=== PATIENT | female | born 1940 | race Caucasian/White ===

== ENCOUNTER → 2018-08-12 | Outpatient (CLI) | payer MEDICARE ==
[2018-08-12 15:20] LABS: BASO % 0.5 % (0.0-1.0); EOS % 0.6 % (0.0-3.0); HEMATOCRIT 42.3 % (36.0-47.0); HEMOGLOBIN 13.2 g/dl (12.0-15.5); LYMPH # 0.9 10^3/uL (1.5-4.5); LYMPH % 13.6 % (24.0-44.0); MEAN CORPUSCULAR HEMOGLOBIN 30.4 pg (27.0-33.0); MEAN CORPUSCULAR HGB CONC 31.2 g/dl (32.0-36.5); MEAN CORPUSCULAR VOLUME 97.5 fl (80.0-96.0); MONO # 0.3 10^3/uL (0.0-0.8); MONO % 4.9 % (0.0-5.0); NEUTROPHILS # 5.3 10^3/uL (1.8-7.7); NEUTROPHILS % 80.2 % (36.0-66.0); PLATELET COUNT, AUTOMATED 237 10^3/uL (150-450); RED BLOOD COUNT 4.34 10^6/uL (4.00-5.40); WHITE BLOOD COUNT 6.6 10^3/uL (4.0-10.0)
[2018-08-12 15:32] LABS: AMORPHOUS SEDIMENT SMALL (NEGATIVE); APPEARANCE, URINE CLOUDY (CLEAR); BACTERIA, URINE AUTO NEGATIVE (NEGATIVE); BILIRUBIN, URINE AUTO NEGATIVE (NEGATIVE); BLOOD, URINE BLOOD NEGATIVE (NEGATIVE); COLOR, URINE YELLOW (YELLOW); GLUCOSE, URINE (UA) AUTO NEGATIVE (NEGATIVE); KETONE, URINE AUTO NEGATIVE (NEGATIVE); LEUKOCYTE ESTERASE, URINE AUTO NEGATIVE (NEGATIVE); MUCUS, URINE SMALL (NEGATIVE); NITRITE, URINE AUTO NEGATIVE (NEGATIVE); PROTEIN, URINE AUTO NEGATIVE (NEGATIVE); RBC, URINE AUTO 6 /HPF (0-3); SPECIFIC GRAVITY URINE AUTO 1.016 (1.002-1.035); SQUAMOUS EPITHELIAL CELL UR AU 0 /HPF (0-6); UROBILINOGEN, URINE AUTO 0.2 mg/dL (0.0-2.0); WBC, URINE AUTO 1 /HPF (0-3)
[2018-08-12 15:41] LABS: CREATININE,RANDOM URINE 72.3 MG/DL; TOTAL PROTEIN,RANDOM URINE 6.1 MG/DL (0.0-12.0)
[2018-08-12 15:49] LABS: ALT/SGPT 20 U/L (12-78); BILIRUBIN,TOTAL 0.5 MG/DL (0.2-1.0); BLOOD UREA NITROGEN 19 MG/DL (7-18); C REACTIVE PROTEIN QUANTITATIV 0.74 MG/DL (0.00-0.30); CALCIUM LEVEL 8.3 MG/DL (8.8-10.2); CARBON DIOXIDE LEVEL 27 MEQ/L (21-32); CHLORIDE LEVEL 105 MEQ/L (98-107); COMPLEMENT C3 115 MG/DL (90-180); COMPLEMENT C4 43 MG/DL (10-40); CREATININE FOR GFR 0.81 MG/DL (0.55-1.30); GLOMERULAR FILTRATION RATE > 60.0 (>39); GLUCOSE, FASTING 110 MG/DL (70-100); POTASSIUM SERUM 4.6 MEQ/L (3.5-5.1); RHEUMATOID FACTOR QUANT < 10.0 IU/ML (<15.0); SODIUM LEVEL 138 MEQ/L (136-145); TOTAL PROTEIN 6.7 GM/DL (6.4-8.2); URIC ACID 3.2 MG/DL (2.6-6.0)
[2018-08-12 16:23] LABS: ERYTHROCYTE SEDIMENTATION RATE 6 mm/hr (0-30)
--- NOTE | 2018-08-12 16:25 | REP ---
BILATERAL SHOULDERS, SIX VIEWS: HISTORY: Polymyalgia. RIGHT SHOULDER: There is no acute fracture or dislocation. There is minimal narrowing of the joint spaces. Osteophytes are present at the acromioclavicular joint. A small calcification is present in the glenohumeral joint space. This may represent a loose body. IMPRESSION:Degenerative change as described above. LEFT SHOULDER: There is no acute fracture or dislocation. There is moderate narrowing of the joint spaces. A calcified granuloma is present in the left upper lobe. IMPRESSION:Degenerative change as described above. Electronically Signed by Hayden Hennessy MD 08/12/2018 04:31 P
[2018-08-14 14:36] LABS: RNP ANTIBODY < 0.2 AI (0.0-0.9); SMITHS ANTIBODY < 0.2 AI (0.0-0.9); SSA SJOGRENS A <0.2 AI (0.0-0.9); SSB SJOGRENS B <0.2 AI (0.0-0.9)
[2018-08-19 14:51] LABS: ANA (HEP2) Positive (.); ANTI DS-DNA AB <1:10 titer (.); CYCLIC CITRULLINATED PEPTIDE 2 units (0-19)
== END ==
LOC: M LAB 14:22
PROVIDERS: ATTEND Internal Medicine Rheumatology
DX: M19.011 Primary osteoarthritis, right shoulder (principal); M19.012 Primary osteoarthritis, left shoulder; M25.711 Osteophyte, right shoulder; R76.8 Other specified abnormal immunological findings in serum; M35.3 Polymyalgia rheumatica
CPT/HCPCS: 36415; 73030; 80053; 81001; 82570; 84156; 84443; 84550; 85025; 85652; 86038; 86140; 86160; 86200; 86225; 86235; 86255; 86431; G0463

== ENCOUNTER → 2018-09-10 | Outpatient (REF) | payer MEDICARE | LOC: M SFHCADAM 14:41 | PROVIDERS: ATTEND Internal Medicine Rheumatology | DX: M35.3 Polymyalgia rheumatica (principal) ==

== ENCOUNTER → 2018-10-14 | Outpatient (REF) | payer MEDICARE | LOC: M SFHCADAM 09:17 | PROVIDERS: ATTEND Internal Medicine Rheumatology | DX: M35.3 Polymyalgia rheumatica (principal) ==

== ENCOUNTER → 2018-11-22 | Outpatient (REF) | payer MEDICARE | LOC: M SFHCADAM 08:00 | PROVIDERS: ATTEND Internal Medicine Rheumatology | DX: M35.3 Polymyalgia rheumatica (principal) ==

== ENCOUNTER → 2018-12-31 | Outpatient (REF) | payer MEDICARE | LOC: M SFHCADAM 09:00 | PROVIDERS: ATTEND Internal Medicine Rheumatology | DX: M35.3 Polymyalgia rheumatica (principal) ==

== ENCOUNTER 2019-03-20 10:31 | Emergency (ER) | payer MEDICARE ==
[~2019-03-20] VITALS: Ht 152.4 cm; Wt 79.7 kg
[2019-03-20] MEDS ORDERED: PRED1TABL PO (10:37)
[2019-03-20] MEDS ORDERED: METO1TAB7 PO (10:37)
[2019-03-20 11:45] LABS: BASO # 0.1 10^3/uL (0.0-0.2); BASO % 1.4 % (0.0-1.0); EOS # 0.1 10^3/uL (0.0-0.5); EOS % 2.4 % (0.0-3.0); HEMATOCRIT 41.9 % (36.0-47.0); HEMOGLOBIN 13.6 g/dl (12.0-15.5); LYMPH % 17.1 % (24.0-44.0); MEAN CORPUSCULAR HEMOGLOBIN 31.1 pg (27.0-33.0); MEAN CORPUSCULAR HGB CONC 32.5 g/dl (32.0-36.5); MEAN CORPUSCULAR VOLUME 95.7 fl (80.0-96.0); MONO # 0.8 10^3/uL (0.0-0.8); MONO % 14.1 % (0.0-5.0); NEUTROPHILS # 3.8 10^3/uL (1.5-8.5); NEUTROPHILS % 64.8 % (36.0-66.0); PLATELET COUNT, AUTOMATED 197 10^3/uL (150-450); RED BLOOD COUNT 4.38 10^6/uL (4.00-5.40); WHITE BLOOD COUNT 5.9 10^3/uL (4.0-10.0)
--- NOTE | 2019-03-20 11:58 | REP ---
Clinical: Hematuria. Technique: Axial noncontrast images from the lung bases to the pubic symphysis with coronal and sagittal re-formations. Findings: Kidneys demonstrate significant bilateral peripelvic cystic changes. There is evidence for mild left-sided hydronephrosis two 2-3 mm ureteral calculi in the mid/distal ureter within the mid pelvis (images 94 - 95). Liver, spleen, pancreas, gallbladder, and bilateral adrenal glands are normal for noncontrast evaluation. The enteric system is without obstruction or acute inflammatory process. Pelvis demonstrates relatively normal bladder and evidence of prior hysterectomy. No ascites. No free air. No adenopathy. Abdominal aorta without aneurysm. Musculoskeletal structures demonstrate age-related degenerative changes without focal abnormality. Lung bases are clear. Impression: 1. Bilateral peripelvic renal cysts. 2. Left ureteral calculi as described above causing minimal hydronephrosis which may represent partially obstructing ureteroliths. Electronically Signed by Doug Jackson MD 03/20/2019 11:50 A
[2019-03-20 12:14] LABS: ALBUMIN 3.5 GM/DL (3.2-5.2); ALT/SGPT 18 U/L (12-78); BILIRUBIN,DIRECT < 0.1 MG/DL (0.0-0.2); BILIRUBIN,TOTAL 0.5 MG/DL (0.2-1.0); BLOOD UREA NITROGEN 18 MG/DL (7-18); CALCIUM LEVEL 8.3 MG/DL (8.8-10.2); CARBON DIOXIDE LEVEL 28 MEQ/L (21-32); CHLORIDE LEVEL 106 MEQ/L (98-107); CREATININE FOR GFR 0.84 MG/DL (0.55-1.30); GLOMERULAR FILTRATION RATE > 60.0 (>39); GLUCOSE, FASTING 112 MG/DL (70-100); LIPASE 94 U/L (73-393); POTASSIUM SERUM 4.3 MEQ/L (3.5-5.1); SODIUM LEVEL 140 MEQ/L (136-145); TOTAL PROTEIN 6.6 GM/DL (6.4-8.2)
[2019-03-20 12:56] VITALS: BP 138/78
[2019-03-20] MEDS ORDERED: FLOM0.4C39 PO (13:04)
[2019-03-20] MEDS ORDERED: ONDA4TAB6 PO (13:10)
[2019-03-20] MEDS ORDERED: NITR-67 PO (13:10)
== END 2019-03-20 13:20 | disposition home or self-care (01) ==
LOC: M ED 10:31
DX: N39.0 Urinary tract infection, site not specified (principal); N28.1 Cyst of kidney, acquired; N20.1 Calculus of ureter; N13.2 Hydronephrosis with renal and ureteral calculous obstruction; R31.0 Gross hematuria; R31.29 Other microscopic hematuria; R10.9 Unspecified abdominal pain; I10 Essential (primary) hypertension; Z87.442 Personal history of urinary calculi; Z79.899 Other long term (current) drug therapy; Z88.0 Allergy status to penicillin; Z88.1 Allergy status to other antibiotic agents; Z91.012 Allergy to eggs

== ENCOUNTER → 2019-04-01 | Outpatient (REF) | payer MEDICARE ==
[~2019-04-01] MED LIST: FLOM0.4C39 PO; METO1TAB7 PO; NITR-67 PO; ONDA4TAB6 PO; PRED1TABL PO
[2019-04-01 18:36] LABS: APPEARANCE, URINE CLEAR (CLEAR); BACTERIA, URINE AUTO NEGATIVE (NEGATIVE); BILIRUBIN, URINE AUTO NEGATIVE (NEGATIVE); BLOOD, URINE BLOOD 1+ (NEGATIVE); COLOR, URINE COLORLESS (YELLOW); GLUCOSE, URINE (UA) AUTO NEGATIVE (NEGATIVE); KETONE, URINE AUTO NEGATIVE (NEGATIVE); LEUKOCYTE ESTERASE, URINE AUTO NEGATIVE (NEGATIVE); NITRITE, URINE AUTO NEGATIVE (NEGATIVE); PROTEIN, URINE AUTO NEGATIVE (NEGATIVE); RBC, URINE AUTO 0 /HPF (0-3); SPECIFIC GRAVITY URINE AUTO 1.003 (1.002-1.035); SQUAMOUS EPITHELIAL CELL UR AU 0 /HPF (0-6); UROBILINOGEN, URINE AUTO 0.2 mg/dL (0.0-2.0); WBC, URINE AUTO 0 /HPF (0-3)
== END ==
LOC: M SMT 17:13
PROVIDERS: ATTEND Nurse Practitioner Women's Health
DX: N13.2 Hydronephrosis with renal and ureteral calculous obstruction (principal)
CPT/HCPCS: 81001; 87086; G0463

== ENCOUNTER → 2019-06-21 | Outpatient (REF) | payer MEDICARE ==
[2019-06-21 13:35] LABS: HEMATOCRIT 36.3 % (36.0-47.0); HEMOGLOBIN 11.4 g/dl (12.0-15.5); MEAN CORPUSCULAR HEMOGLOBIN 29.3 pg (27.0-33.0); MEAN CORPUSCULAR HGB CONC 31.4 g/dl (32.0-36.5); MEAN CORPUSCULAR VOLUME 93.3 fl (80.0-96.0); PLATELET COUNT, AUTOMATED 235 10^3/uL (150-450); RED BLOOD COUNT 3.89 10^6/uL (4.00-5.40); WHITE BLOOD COUNT 5.8 10^3/uL (4.0-10.0)
[2019-06-21 14:18] LABS: ERYTHROCYTE SEDIMENTATION RATE 48 mm/hr (0-30)
[2019-06-21 14:27] LABS: ALBUMIN 3.4 GM/DL (3.2-5.2); ALT/SGPT 14 U/L (12-78); BILIRUBIN,TOTAL 0.5 MG/DL (0.2-1.0); BLOOD UREA NITROGEN 17 MG/DL (7-18); CALCIUM LEVEL 8.2 MG/DL (8.8-10.2); CARBON DIOXIDE LEVEL 28 MEQ/L (21-32); CHLORIDE LEVEL 106 MEQ/L (98-107); CHOLESTEROL LEVEL 165 MG/DL (<200); CHOLESTEROL RISK RATIO 2.661 (<5); CREATININE FOR GFR 0.72 MG/DL (0.55-1.30); GLOMERULAR FILTRATION RATE > 60.0 (>39); GLUCOSE, FASTING 86 MG/DL (70-100); HDL CHOLESTEROL 62 MG/DL (>40); LDL CHOLESTEROL 77 MG/DL (<100); NON-HDL-C 103 MG/DL; POTASSIUM SERUM 4.2 MEQ/L (3.5-5.1); SODIUM LEVEL 139 MEQ/L (136-145); TOTAL PROTEIN 6.4 GM/DL (6.4-8.2); TRIGLYCERIDES LEVEL 128 MG/DL (<150)
== END ==
LOC: M LABDRWAD 12:40
PROVIDERS: ATTEND Physician Assistant
DX: Z00.00 Encounter for general adult medical examination without abnormal findings (principal); M35.3 Polymyalgia rheumatica; E78.00 Pure hypercholesterolemia, unspecified

== ENCOUNTER → 2019-07-21 | Outpatient (REF) | payer MEDICARE ==
[2019-07-21 18:08] LABS: ALBUMIN 3.5 GM/DL (3.2-5.2); ALT/SGPT 16 U/L (12-78); BILIRUBIN,TOTAL 0.3 MG/DL (0.2-1.0); BLOOD UREA NITROGEN 18 MG/DL (7-18); C REACTIVE PROTEIN QUANTITATIV 7.79 MG/DL (0.00-0.30); CALCIUM LEVEL 9.2 MG/DL (8.8-10.2); CARBON DIOXIDE LEVEL 30 MEQ/L (21-32); CHLORIDE LEVEL 103 MEQ/L (98-107); CREATININE FOR GFR 0.67 MG/DL (0.55-1.30); GLOMERULAR FILTRATION RATE > 60.0 (>39); GLUCOSE, FASTING 93 MG/DL (70-100); POTASSIUM SERUM 4.2 MEQ/L (3.5-5.1); SODIUM LEVEL 139 MEQ/L (136-145)
== END ==
LOC: M SFHCRHEU 15:13
PROVIDERS: ATTEND Internal Medicine
DX: M35.3 Polymyalgia rheumatica (principal); R60.0 Localized edema
CPT/HCPCS: 36415; 80053; 85652; 86140; G0463

== ENCOUNTER 2019-10-20 12:50 | Emergency (ER) | payer MEDICARE ==
[~2019-10-20] VITALS: Ht 154.9 cm; Wt 78.2 kg
[2019-10-20] MEDS ORDERED: FLUORESCEIN OPHTH 1 MG STRIP OD ONE (13:45)
[2019-10-20] MEDS ORDERED: TETRACAINE 0.5% OPHTH SOLN 4ML OS ONE (13:45)
[2019-10-20] MEDS ORDERED: ERYTHROMYCIN OPHTH OINT OD ONE (14:15)
[2019-10-20 14:34] VITALS: BP 175/83
== END 2019-10-20 14:35 | disposition home or self-care (01) ==
LOC: M ED 12:50
DX: T26.61XA Corrosion of cornea and conjunctival sac, right eye, initial encounter (principal); Z88.0 Allergy status to penicillin; Z88.1 Allergy status to other antibiotic agents

== ENCOUNTER → 2020-01-24 | Outpatient (REF) | payer MEDICARE ==
[2020-01-24 13:45] LABS: BASO # 0.1 10^3/uL (0.0-0.2); BASO % 0.7 % (0.0-1.0); EOS # 0.2 10^3/uL (0.0-0.5); EOS % 2.6 % (0.0-3.0); HEMATOCRIT 42.9 % (36.0-47.0); HEMOGLOBIN 13.7 g/dl (12.0-15.5); LYMPH # 2.1 10^3/uL (1.5-5.0); LYMPH % 30.1 % (24.0-44.0); MEAN CORPUSCULAR HEMOGLOBIN 31.6 pg (27.0-33.0); MEAN CORPUSCULAR HGB CONC 31.9 g/dl (32.0-36.5); MEAN CORPUSCULAR VOLUME 99.1 fl (80.0-96.0); MONO # 0.7 10^3/uL (0.0-0.8); MONO % 9.9 % (0.0-5.0); NEUTROPHILS % 56.1 % (36.0-66.0); PLATELET COUNT, AUTOMATED 248 10^3/uL (150-450); RED BLOOD COUNT 4.33 10^6/uL (4.00-5.40)
[2020-01-24 14:11] LABS: ALBUMIN 3.4 GM/DL (3.2-5.2); ALT/SGPT 17 U/L (12-78); BILIRUBIN,TOTAL 0.5 MG/DL (0.2-1.0); BLOOD UREA NITROGEN 19 MG/DL (7-18); C REACTIVE PROTEIN QUANTITATIV 0.47 MG/DL (0.00-0.30); CALCIUM LEVEL 8.9 MG/DL (8.8-10.2); CARBON DIOXIDE LEVEL 31 MEQ/L (21-32); CHLORIDE LEVEL 105 MEQ/L (98-107); CREATININE FOR GFR 0.94 MG/DL (0.55-1.30); GLOMERULAR FILTRATION RATE > 60.0 (>39); GLUCOSE, FASTING 100 MG/DL (70-100); POTASSIUM SERUM 4.7 MEQ/L (3.5-5.1); SODIUM LEVEL 140 MEQ/L (136-145); TOTAL PROTEIN 6.4 GM/DL (6.4-8.2)
[2020-01-24 14:16] LABS: ERYTHROCYTE SEDIMENTATION RATE 7 mm/hr (0-30)
== END ==
LOC: M SFHCADAM 09:23
PROVIDERS: ATTEND Internal Medicine
DX: M35.3 Polymyalgia rheumatica (principal)

== ENCOUNTER → 2020-03-01 | Outpatient (CLI) | payer MEDICARE ==
--- NOTE | 2020-03-01 14:45 | REP ---
INDICATION: OSTEOARTHRITIS. COMPARISON: None. TECHNIQUE: Nine views. Bilateral study. FINDINGS: Five views of each knee are presented. There is not a ticket ower spurring of the patella bilaterally seen on sunrise and lateral projections. There is also patellofemoral osteoarthritic spurring bilaterally visible on the lateral views. There is diffuse osteopenia. There is no medial compartment osteoarthritic joint space narrowing bilaterally, left greater than right with associated spurring. 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 Diffuse osteopenia. No acute bony abnormality.. <Electronically signed by Aayush Nieto > 03/01/20 [id number]
== END ==
LOC: M ADAMS 11:11
PROVIDERS: ATTEND Internal Medicine
DX: M17.0 Bilateral primary osteoarthritis of knee (principal); M85.851 Other specified disorders of bone density and structure, right thigh; M85.852 Other specified disorders of bone density and structure, left thigh; M25.761 Osteophyte, right knee; M25.762 Osteophyte, left knee

== ENCOUNTER → 2020-04-24 | Outpatient (REF) | payer MEDICARE | LOC: M SFHCADAM 09:30 | PROVIDERS: ATTEND Internal Medicine | DX: M35.3 Polymyalgia rheumatica (principal) ==

== ENCOUNTER → 2020-08-14 | Outpatient (REF) | payer MEDICARE ==
[2020-08-14 16:56] LABS: BASO # 0.1 10^3/uL (0.0-0.2); BASO % 0.8 % (0.0-1.0); EOS # 0.2 10^3/uL (0.0-0.5); EOS % 2.9 % (0.0-3.0); HEMATOCRIT 41.9 % (36.0-47.0); HEMOGLOBIN 13.2 g/dl (12.0-15.5); LYMPH # 1.5 10^3/uL (1.5-5.0); LYMPH % 23.4 % (24.0-44.0); MEAN CORPUSCULAR HGB CONC 31.5 g/dl (32.0-36.5); MEAN CORPUSCULAR VOLUME 98.4 fl (80.0-96.0); MONO # 0.7 10^3/uL (0.0-0.8); MONO % 10.7 % (2.0-8.0); NEUTROPHILS % 61.9 % (36.0-66.0); PLATELET COUNT, AUTOMATED 208 10^3/uL (150-450); RED BLOOD COUNT 4.26 10^6/uL (4.00-5.40); WHITE BLOOD COUNT 6.5 10^3/uL (4.0-10.0)
[2020-08-14 17:24] LABS: ALBUMIN 3.7 GM/DL (3.2-5.2); ALT/SGPT 20 U/L (12-78); BILIRUBIN,TOTAL 0.3 MG/DL (0.2-1.0); BLOOD UREA NITROGEN 23 MG/DL (7-18); CALCIUM LEVEL 9.5 MG/DL (8.8-10.2); CARBON DIOXIDE LEVEL 31 MEQ/L (21-32); CHLORIDE LEVEL 105 MEQ/L (98-107); CREATININE FOR GFR 0.73 MG/DL (0.55-1.30); GLOMERULAR FILTRATION RATE > 60.0 (>39); GLUCOSE, FASTING 91 MG/DL (70-100); POTASSIUM SERUM 4.2 MEQ/L (3.5-5.1); SODIUM LEVEL 141 MEQ/L (136-145); TOTAL PROTEIN 6.9 GM/DL (6.4-8.2)
[2020-08-14 17:35] LABS: TOTAL 25(OH) VITAMIN D 30.8 NG/ML (30.0-100.0)
[2020-08-14 17:43] LABS: ERYTHROCYTE SEDIMENTATION RATE 12 mm/hr (0-30)
== END ==
LOC: M SFHCRHEU 15:29
PROVIDERS: ATTEND Internal Medicine Rheumatology
DX: M35.3 Polymyalgia rheumatica (principal); Z79.52 Long term (current) use of systemic steroids
CPT/HCPCS: 80053; 82306; 85025; 85652; 86140; G0463

== ENCOUNTER → 2020-10-23 | Outpatient (REF) | payer MEDICARE ==
[2020-10-23 13:12] LABS: BASO # 0.1 10^3/uL (0.0-0.2); BASO % 1.2 % (0.0-1.0); EOS # 0.2 10^3/uL (0.0-0.5); EOS % 4.1 % (0.0-3.0); HEMATOCRIT 41.7 % (36.0-47.0); LYMPH # 1.5 10^3/uL (1.5-5.0); LYMPH % 26.7 % (24.0-44.0); MEAN CORPUSCULAR HGB CONC 31.2 g/dl (32.0-36.5); MEAN CORPUSCULAR VOLUME 99.5 fl (80.0-96.0); MONO # 0.7 10^3/uL (0.0-0.8); MONO % 13.2 % (2.0-8.0); NEUTROPHILS % 54.3 % (36.0-66.0); PLATELET COUNT, AUTOMATED 205 10^3/uL (150-450); RED BLOOD COUNT 4.19 10^6/uL (4.00-5.40); WHITE BLOOD COUNT 5.6 10^3/uL (4.0-10.0)
[2020-10-23 13:35] LABS: ERYTHROCYTE SEDIMENTATION RATE 8 mm/hr (0-30)
[2020-10-23 13:41] LABS: ALBUMIN 3.5 GM/DL (3.2-5.2); ALT/SGPT 18 U/L (12-78); BILIRUBIN,TOTAL 0.4 MG/DL (0.2-1.0); BLOOD UREA NITROGEN 18 MG/DL (7-18); C REACTIVE PROTEIN QUANTITATIV 0.68 MG/DL (0.00-0.30); CALCIUM LEVEL 8.8 MG/DL (8.8-10.2); CARBON DIOXIDE LEVEL 28 MEQ/L (21-32); CHLORIDE LEVEL 107 MEQ/L (98-107); CREATININE FOR GFR 0.88 MG/DL (0.55-1.30); GLOMERULAR FILTRATION RATE > 60.0 (>39); GLUCOSE, FASTING 111 MG/DL (70-100); POTASSIUM SERUM 4.3 MEQ/L (3.5-5.1); SODIUM LEVEL 143 MEQ/L (136-145); TOTAL PROTEIN 6.4 GM/DL (6.4-8.2)
== END ==
LOC: M SFHCRHEU 09:20 → M SFHCADAM 09:22
PROVIDERS: ATTEND Internal Medicine Rheumatology
DX: M35.3 Polymyalgia rheumatica (principal)

== ENCOUNTER → 2020-11-30 | Outpatient (REF) | payer MEDICARE ==
[2020-11-30 12:51] LABS: BASO # 0.1 10^3/uL (0.0-0.2); BASO % 0.8 % (0.0-1.0); EOS # 0.3 10^3/uL (0.0-0.5); EOS % 4.2 % (0.0-3.0); HEMATOCRIT 40.2 % (36.0-47.0); HEMOGLOBIN 12.6 g/dl (12.0-15.5); LYMPH # 1.4 10^3/uL (1.5-5.0); LYMPH % 22.9 % (24.0-44.0); MEAN CORPUSCULAR HGB CONC 31.3 g/dl (32.0-36.5); MEAN CORPUSCULAR VOLUME 98.8 fl (80.0-96.0); MONO # 0.8 10^3/uL (0.0-0.8); MONO % 12.6 % (2.0-8.0); NEUTROPHILS # 3.5 10^3/uL (1.5-8.5); NEUTROPHILS % 59.2 % (36.0-66.0); PLATELET COUNT, AUTOMATED 188 10^3/uL (150-450); RED BLOOD COUNT 4.07 10^6/uL (4.00-5.40); WHITE BLOOD COUNT 5.9 10^3/uL (4.0-10.0)
[2020-11-30 13:30] LABS: ALBUMIN 3.5 GM/DL (3.2-5.2); ALT/SGPT 21 U/L (12-78); BILIRUBIN,TOTAL 0.4 MG/DL (0.2-1.0); BLOOD UREA NITROGEN 17 MG/DL (7-18); C REACTIVE PROTEIN QUANTITATIV 0.73 MG/DL (0.00-0.30); CARBON DIOXIDE LEVEL 29 MEQ/L (21-32); CHLORIDE LEVEL 108 MEQ/L (98-107); CREATININE FOR GFR 0.88 MG/DL (0.55-1.30); GLOMERULAR FILTRATION RATE > 60.0 (>39); GLUCOSE, FASTING 114 MG/DL (70-100); POTASSIUM SERUM 4.3 MEQ/L (3.5-5.1); SODIUM LEVEL 145 MEQ/L (136-145); TOTAL PROTEIN 6.1 GM/DL (6.4-8.2)
[2020-11-30 14:05] LABS: ERYTHROCYTE SEDIMENTATION RATE 10 mm/hr (0-30)
== END ==
LOC: M SFHCRHEU 12:38
PROVIDERS: ATTEND Internal Medicine Rheumatology
DX: M35.3 Polymyalgia rheumatica (principal)

== ENCOUNTER → 2020-12-27 | Outpatient (REF) | payer MEDICARE ==
[2020-12-27 12:45] LABS: BASO # 0.1 10^3/uL (0.0-0.2); BASO % 1.1 % (0.0-1.0); EOS # 0.2 10^3/uL (0.0-0.5); EOS % 4.2 % (0.0-3.0); HEMATOCRIT 43.1 % (36.0-47.0); HEMOGLOBIN 13.5 g/dl (12.0-15.5); LYMPH # 1.8 10^3/uL (1.5-5.0); LYMPH % 32.5 % (24.0-44.0); MEAN CORPUSCULAR HEMOGLOBIN 30.8 pg (27.0-33.0); MEAN CORPUSCULAR HGB CONC 31.3 g/dl (32.0-36.5); MEAN CORPUSCULAR VOLUME 98.4 fl (80.0-96.0); MONO # 0.9 10^3/uL (0.0-0.8); MONO % 16.6 % (2.0-8.0); NEUTROPHILS # 2.4 10^3/uL (1.5-8.5); PLATELET COUNT, AUTOMATED 220 10^3/uL (150-450); RED BLOOD COUNT 4.38 10^6/uL (4.00-5.40); WHITE BLOOD COUNT 5.4 10^3/uL (4.0-10.0)
[2020-12-27 13:54] LABS: ALBUMIN 3.6 GM/DL (3.2-5.2); ALT/SGPT 21 U/L (12-78); BILIRUBIN,TOTAL 0.4 MG/DL (0.2-1.0); BLOOD UREA NITROGEN 17 MG/DL (7-18); C REACTIVE PROTEIN QUANTITATIV 0.67 MG/DL (0.00-0.30); CARBON DIOXIDE LEVEL 30 MEQ/L (21-32); CHLORIDE LEVEL 105 MEQ/L (98-107); CREATININE FOR GFR 0.88 MG/DL (0.55-1.30); GLOMERULAR FILTRATION RATE > 60.0 (>39); GLUCOSE, FASTING 112 MG/DL (70-100); POTASSIUM SERUM 4.3 MEQ/L (3.5-5.1); SODIUM LEVEL 141 MEQ/L (136-145); TOTAL PROTEIN 6.6 GM/DL (6.4-8.2)
[2020-12-27 14:05] LABS: ERYTHROCYTE SEDIMENTATION RATE 7 mm/hr (0-30)
== END ==
LOC: M SFHCRHEU 08:56 → M SFHCADAM 09:42
PROVIDERS: ATTEND Internal Medicine Rheumatology
DX: M35.3 Polymyalgia rheumatica (principal)

== ENCOUNTER 2021-02-17 08:17 | Observation (INO) | payer MEDICARE ==
[~2021-02-17] VITALS: Ht 154.9 cm; Wt 81.9 kg
--- OUTSIDE RECORDS SUMMARY | 2021-02-17 08:22 | CCD | Continuity of Care Document ---
Author Author Hortencia 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 Name Role Phone Kvng Blackwell MD AUTM [phone] Problems Description No Information Available Social History Type Date Description Comments Sex Unknown Tobacco Use Start: Unknown Never Smoked Cigarettes ETOH Use Denies alcohol use Sun Exposure moderate amount of sun exposure Sun Exposure Has never experienced blistering from sunburns Sun Exposure Does not use sunscreen Sun Exposure Has never used tanning bed Allergies and adverse reactions Active Allergies Criticality Reaction | Severity Comments Date Penicillin Unable to assess criticality 09/07/2014 Doxycycline Unable to assess criticality 09/07/2014 Eggs Unable to assess criticality 09/07/2014 Cefprozil Unable to assess criticality 07/05/2020 Zithromax Unable to assess criticality 07/05/2020 Medications Active Medications SIG Qnty Indications Ordering Provide r Date Multivitamin Unknown Metoprolol Succinate ER Unknown 0 Calcium 1200+D3 Unknown 0 Fluticasone Propionate Nasal [place] U nknown Prednisone Unknown Immunizations Description No Information Available Vital Signs Date Vital Result Comment 01/30/2021 1:10pm BP Systolic 135 mmHg BP Diastolic 76 mmHg Heart Rate 87 /min Weight 175.00 lb 07/31/2020 1:37pm BP Systolic 159 mmHg BP Diastolic 71 mmHg Weight 185.00 lb Body Temperature 97.8 F Results Description No Information Available Procedures Date Code Description Status 01/30/2021 01284 Office/Outpatient Established Mo d MDM 30-39 Min Completed Medical Devices Description No Information Available Encounters Type Date Location Provider Dx Diagnosis Office Visit 01/30/2021 1:15p Main Office TEREZA Velarde L57.0 Actinic keratosis D22.5 Melanocytic nevi of trunk L81.4 Other melanin hyperpigmentat ion L82.1 Other seborrheic keratosis Z87.2 Personal history of diseases of the skin, subcu Z85.828 Personal history of other ma lignant neoplasm of skin Z08 Encntr for follow-up exam af ter trtmt for malignant neoplasm Assessments Date Code Description Provider 01/30/2021 L57.0 Actinic keratosis TEREZA Bro 01/30/2021 D22.5 Melanocytic nevi of trunk TEREZA Leblanc 01/30/2021 L81.4 Other melanin hyperpigmentation TEREZA Velarde 01/30/2021 L82.1 Other seborrheic keratosis TEREZA Mckeon 01/30/2021 Z87.2 Personal history of diseases of the skin and subcutaneous tissue TEREZA Velarde 01/30/2021 Z85.828 Personal history of other malign ant neoplasm of skin TEREZA Velarde 01/30/2021 Z08 Encounter for follow -up examination after completed treatment for malignant neoplasm TEREZA Velarde Plan of Treatment Future Appointment(s):* 08/01/2021 2:15 pm - TEREZA Velarde at Main Office 01/30/2021 - TEREZA Velarde* L57.0 Actinic keratosis* Comments:* Good response to Efudex. May discontinue.Aquaphor PRN.Call with any problems. * D22.5 Melanocytic nevi of trunk* Comments:* Nevi on trunk appear healthy. Monitor for changes. CA - Reassurance.Sun protection and sunscreen use discussed. Literature given on monthly self skin evaluations. Should any moles change in shape or color, itch, bleed or burn, pt will contact office for evaluation sooner than their interval appointment. * L81.4 Other melanin hyperpigmentation* Comments:* Sunscreen use and sun protection discussed. * L82.1 Other seborrheic keratosis* Comments:* Reassurance. 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 * Z08 Encounter for follow-up examination after completed treatment for malignant neoplasm* Comments:* See above. * Follow up:* 6 months/PRN - [facility] Functional Status Description No Information Available Mental Status Description No Information Available Referrals Description No Information Available"
--- OUTSIDE RECORDS SUMMARY | 2021-02-17 08:22 | CCD ---
Author Author [facility] Organization [facility] Address [address] [place] [address] Phone Care Team Providers Care Police Artist Name Role Phone Brenton TOBAR, Graeme Reed Unavailable Unavailable CN[place], Cardiology Unavailable [phone] Rishi TOBAR, Kvng Guillen PP [phone] [employer] BUSINESS CONTINUITY GLOBAL DIRECTOR, Geri Unavailable [phone] Reason for Referral No Reason for Referral Recorded Problems Includes: Active, inactive, and resolved Problems All Visits Onset Date - Time Resolved Date - Time Provider Co ndition Status Polymyalgia Rheumatica 12/22/2019 - 11:21AM Nancy topete [facility] Active Note: [facility] Rheum Osteoarthritis Localized Primary Hip Left 12/03/2015 - 12:00AM Kvng Blackwell MD Active Note: Unchanged Osteopenia 11/22/2013 - 12:00AM Kvng gonzalez MD Active Note: Unchanged Paroxysmal Atrial Tachycardia 11/22/2013 - 12:00AM Mark Blackwell MD Active Note: Unchanged Plan of Treatment Future Appointments Date Time Location Provider Annual Wellness SUBSEQUENT visi t(> 1yr since prev. 2 2:00PM [facility] Kvng Blackwell MD Future Tests Order Diagnosis Results Due Ordering Provid er Lab CBC 07/09/21 Nancy Fox RPA Lab CMP 07/09/21 Nancy Fox RPA Lab Lipid Panel 07/09/21 Nancy Fox RPA Findings Encounter Date Education and counseling Patient instru cted to report any medication side effects including but not limited to dizzyness, lightheadedness, fatigue, cough, GI upset, and dehydration. Also, patient is to watch for new cardiovascular and/or pulmonary symptoms in between office visits. Lifestyle modifications to manage hypertension and blood pressure goals using the JNC8 report guidelines were specifically reviewed with the patient today. Patient expressed reasonable understanding of the treatment goals and plan. Lexicomp information sheet was given to the patient on any new medication. Continue current regimen. See back in 6 months for annual visit with fasting labs prior. See sooner if issues arise incident to previous visit- with Nancy Fox RPA 0 01/10/2021 Education and counseling Patient instru cted to report any medication side effects including but not limited to dizzyness, lightheadedness, fatigue, cough, GI upset, and dehydration. Also, patient is to watch for new cardiovascular and/or pulmonary symptoms in between office visits. Lifestyle modifications to manage hypertension and blood pressure goals using the JNC8 report guidelines were specifically reviewed with the patient today. Patient expressed reasonable understanding of the treatment goals and plan. Lexicomp information sheet was given to the patient on any new medication. Continue current regimen. We will check plain films of the left knee and follow up via phone once results are known. See back in 6 months for annual visit with fasting labs prior. See sooner if issues arise incident to previous visit- with Nancy Fox RPA 0 12/22/2019 Ordered a urine culture followup with Kvng Blackwell MD 06/21/2019 Ordered Transition in care, clinical summary provided Annual Wellness SUBSEQUENT visi t(> 1yr since prev. with Kvng Blackwell MD 06/21/2019 Education and counseling Patient instru cted to report any medication side effects including but not limited to dizzyness, lightheadedness, fatigue, cough, GI upset, and dehydration. Also, patient is to watch for new cardiovascular and/or pulmonary symptoms in between office visits. Lifestyle modifications to manage hypertension and blood pressure goals using the JNC8 report guidelines were specifically reviewed with the patient today. Patient expressed reasonable understanding of the treatment goals and plan. Lexicomp information sheet was given to the patient on any new medication. Continue current regimen. See back in 6 months for annual visit or sooner if issues arise incident to previous visit- with Nancy Derek Fox [facility] 12/08/2018 Tylenol for discomfort or fever. Push fluids and rest. Saline nasal spray to thin secretions and encourage drainage. Call if persistent or high fever, increased work of breathing, persistent pain, if sxs not improving, or if concerned urgent visit with Nish Malik PA-C 07/16/2017 Education and counseling Age and gender specific counceling about preventative health discussed with the patient using USPTF and /or ACP guidelines on health maintenance and screening. Recommended formal physical therapy for neck symptoms, she will also use moist heat to help with spasm. Otherwise, doing well. Will plan to see back in 6 months for follow up or sooner if issues arise followup with Nancy Fox [facility] 06/15/2017 Education and counseling ; Age and gende r specific counceling about preventative health discussed with the patient using USPTF and/or ACP guidelines on health maintenance and screening. Will plan to update mammogram and bone density. Also, agreeable to update screening colonoscopy. Otherwise, up to date with [facility] Annual Wellness SUBSEQUENT visi t(> 1 yr since prev. with Nancy Fox [facility] 06/15/2017 Education and counseling ; patient instr ucted to report any medication side effects including but not limited to dizzyness, lightheadedness, fatigue, cough, GI upset, and dehydration. Also, patient is to watch for new cardiovascular and/or pulmonary symptoms in between office visits. Lifestyle modifications to manage hypertension and blood pressure goals using the JNC8 report guidelines were specifically reviewed with the patient today. Patient expressed reasonable understanding of the treatment goals and plan. Patient doing well. Will treat with zithromax for mild sinus type symptoms. Continue routine OTC allergy treatments. Will otherwise plan to see back in 6 months for follow up. See as needed in the interim followup with Nancy Fox [facility] 06/11/2016 Education and counseling ; Age and gende r specific counceling about preventative health discussed with the patient using USPTF and/or ACP guidelines on health maintenance and screening. Patient doing well. Mammogram and bone density q2 years and will update 05/2017. Otherwise, up to date Annual Wellness SUBSEQUENT visi t(> 1yr since prev. with Nancy Derek Ruddy [facility] 06/11/2016 Ordered treat underlying etiology With the switch in formulation to the succinate so she can take once a day and get more therapeutic levels. I do not really consider this a treatment failure since she likely does not have adequate beta mariam levels in her system. She will follow symptomatology carefully obviously go to the emergency room for recurrent symptoms that do not resolve or are associated with shortness of breath chest pain or marked dizziness. Keep November appointment. Refer to cardiology specifically professor of public administration if symptoms recur on therapeutic doses of beta mariam sick visit with Kvng Blackwell MD 08/30/2015 Education and counseling ; patient instr ucted to report any medication side effects including but not limited to dizzyness, lightheadedness, fatigue, cough, GI upset, and dehydration. Also, patient is to watch for new cardiovascular and/or pulmonary symptoms in between office visits. Lifestyle modifications to manage hypertension and blood pressure goals using the JNC8 report guidelines were specifically reviewed with the patient today. Patient expressed reasonable understanding of the treatment goals and plan. Patient doing well. I recommended she use OTC nasal steroid as well as daily antihistamine such as zytrec or claritin to paleontological helper with seasonal allergy complaints. Will otherwise plan to see back in 6 months for follow up with fasting labs prior. See as needed in the interim followup with Nancy Fox [facility] 06/04/2015 Education and counseling ; Age and gende r specific counceling about preventative health discussed with the patient using USPTF and/or ACP guidelines on health maintenance and screening. Refuses breast exam but agrees to update mammogram screening. Will need repeat colonoscopy next year. Otherwise up to date with [facility] Annual Wellness SUBSEQUENT visi t(> 1 yr since prev. with Nancy Fox [facility] 06/04/2015 Patient education about medication Poss ible side effects of medications discussed with good understanding. Allergies verified. Patient instructed to take all medication as directed. Warm compresses. Saline flushes. May continue OTC mucinex, BP controlled. Follow up in 7-10 days if no improvement or sooner if needed. urgent visit with Izabel MOMIN 10/02/2014 Education and counseling ; Age and gende r specific counceling on preventative health discussed with the patient using USPTF and/or ACP guidlines on health maintenance and screening. Currently up to date with [facility] screening. Will plan to follow up yearly or as needed in the interim if problems arise new patient with Kvng Blackwell MD 11/22/2013 Assessments Includes: Assessments for all patient encounters Findings Encounter Date Osteoarthritis of left knee incident to previous visit - with Nancy Fox [facility] 01/10/2021 Osteopenia incident to previous visit- with Nancy Fox [facility] 01/10/2021 Paroxysmal atrial tachycardia which is well-controlled incident to previous visit- with Nancy Fox [facility] 01/10/2021 Polymyalgia rheumatica which is stable incident to pre vious visit- with Nancy Derek [facility] 01/10/2021 Basal cell carcinoma of the skin possib le on nose with slight nodularity on what appeared last visit to be an AK. Has appt with Derm coming up so will hold off on cryo as she may need Bx. No charge for visit. Keep next Ambulatory Procedure with Kvng Blackwell MD 07/10/2020 Routine senior citizen history and physical (65-80 yrs ) ANNUAL PE-followup exam/ with Kvng Blackwell MD 06/26/2020 Actinic keratosis Bridge of nose. We'l l have her come back for liquid nitrogen treatment followup with Kvng Blackwell MD 06/26/2020 Basal cell carcinoma of the skin Possib le upper right side of nose. Will refer to dermatology followup with Kvng Blackwell MD 06/26/2020 Essential hypercholesterolemia If blood pressure remains elevated then we will consider putting her on cholesterol-lowering medicine however given a nurse limited benefit going forward followup with Kvng Blackwell MD 06/26/2020 Essential hypertension We'll follow for now if still elevated at next visit increase beta mariam followup with Kvng Blackwell MD 06/26/2020 Paroxysmal atrial tachycardia followup with Kvng bah MD 06/26/2020 Polymyalgia rheumatica which is stable followup with Kvng Blackwell MD 06/26/2020 Routine senior citizen history and physical (65-80 yrs ) Annual Wellness SUBSEQUENT visi t(> 1yr since prev. with Kvng Blackwell MD 06/26/2020 Osteoarthritis of left knee incident to previous visit - with [facility] 12/22/2019 Osteopenia incident to previous visit- with [facility] 12/22/2019 Paroxysmal atrial tachycardia which is well-controlled incident to previous visit- with [facility] 12/22/2019 Polymyalgia rheumatica which is stable incident to pre vious visit- with [facility] 12/22/2019 Routine senior citizen history and physical (65-80 yrs ) ANNUAL PE-followup exam/ with Kvng Blackwell MD 06/21/2019 Asymptomatic (natural) menopause followup with Kvng Blackwell MD 06/21/2019 Essential hypertension Borderline contr ol which will likely improve when she stops Aleve which I recommended followup with Kvng Blackwell MD 06/21/2019 Paroxysmal atrial tachycardia Well controlled followu p with Kvng Blackwell MD 06/21/2019 Urinary tract infection, geriatric presentation follow up with Kvng Blackwell MD 06/21/2019 Routine senior citizen history and physical (65-80 yrs ) Annual Wellness SUBSEQUENT visi t(> 1yr since prev. with Kvng Blackwell MD 06/21/2019 Paroxysmal atrial tachycardia incident to previous vis it- with Nancy Fox [facility] 12/08/2018 Polymyalgia rheumatica incident to previous visit- with Elyse Fox [facility] 12/08/2018 Paroxysmal atrial tachycardia followup with Kvng bah MD 06/17/2018 Polymyalgia rheumatica which is well-controlled follow up with Kvng Blackwell MD 06/17/2018 Routine senior citizen history and physical (65-80 yrs ) Annual Wellness SUBSEQUENT visi t(> 1yr since prev. with Kvng Blackwell MD 06/17/2018 Arthralgia , suspect PMR return sick visit with Nancy kinsey [facility] 02/24/2018 Polymyalgia rheumatica which is showing no evidence of disease followup with Kvng Blackwell MD 12/22/2017 Nephrolithiasis of the left kidney which is resolved s ick visit with Nancy Fox RPA 08/24/2017 Chronic rhinitis sick visit with Kvng Hopkins 08/11/2017 Polymyalgia rheumatica Probable based o n symptomatology and response to prednisone. We'll get sedimentation rate and then give patient a call on treatment plan sick visit with Kvng Blackwell MD 08/11/2017 Allergic rhinitis urgent visit with Nish Malik PA-C 2017 Osteopenia followup with Nancy Fox [facility] 2017 Paroxysmal atrial tachycardia followup with Nancy Fox RPA 06/15/2017 Trapezius muscle strain followup with Nancy Fox [facility] Osteopenia Annual Wellness SUBSEQUEN T visi t(> 1yr since prev. with [facility] 06/15/2017 Paroxysmal atrial tachycardia Annual Wellness SUBSE QUENT visi t(> 1yr since prev. with [facility] 06/15/2017 Routine senior citizen history and physical (65-80 yrs ) Annual Wellness SUBSEQUENT visi t(> 1yr since prev. with [facility] 06/15/2017 Paroxysmal atrial tachycardia which is stable followup with Kvng Blackwell MD 12/09/2016 Allergic rhinitis Possible sick visit with Kvng bah MD 09/11/2016 Acute sinusitis , mild followup with [facility] Paroxysmal atrial tachycardia which is well-controlled followup with [facility] 06/11/2016 Routine senior citizen history and physical (65-80 yrs ) Annual Wellness SUBSEQUENT visi t(> 1yr since prev. with [facility] 06/11/2016 Localized primary osteoarthritis of the left hip follo wup with Kvng Blackwell MD 12/03/2015 Pure hyperglyceridemia followup with Kvng Blackwell MD 12/03/2015 Multiple nonvenomous insect bites Of right arm, proxi mal to the elbow urgent visit with Nish Malik PA-C 09/14/2015 Paroxysmal atrial tachycardia sick visit with Kvng Blackwell MD 08/30/2015 Localized primary osteoarthritis of the left hip with secondary strain of thigh/ IT band sick visit with [facility] 07/09/2015 Allergic rhinitis followup with [facility] 2015 Paroxysmal atrial tachycardia which is well-controlled followup with [facility] 06/04/2015 Normal routine history and physical senior citizen (65 -80) Annual Wellness SUBSEQUENT visi t(> 1yr since prev. with [facility] 06/04/2015 Normal routine history and physical senior citizen (65 -80) Annual Wellness SUBSEQUENT visi t(> 1yr since prev. with Kvng Blackwell MD 11/23/2014 Sinusitis urgent visit with Izabel NOELP-BC 10/02/2014 Osteopenia new patient with Kvng Blackwell MD 11/22/2013 Paroxysmal atrial tachycardia new patient with Kvng Blackwell MD 11/22/2013 Instructions Instructions not supported for this document typeNo Instructions Recorded Medical Equipment - Implanted Devices Includes: Current and historical DevicesNo Medical Equipment Recorded Medications Includes: Current and historical Medications Current Medications (continue as prescribed) Metoprolol Succinate ER 50 MG Oral Tablet Extended Release 2 4 Hour 10/05/2020 Provider: Kvng Blackwell MD Diagnosis: 1 PO QD predniSONE 1 MG Oral Tablet 12/22/2019 Provider: Diagnosis: 4.5mg PO Daily Fluticasone Propionate 50MCG/ACT Nasal Suspension 08/11/2017 Provider: Kvng Blackwell MD Diagnosis: 2 sprays QD each nostril Calcium 600-200 MG-UNIT OR TABS 11/22/2013 Provider : Diagnosis: Multivitamins OR CAPS 11/22/2013 Provider: Diagnosis: Past Medications on file Metoprolol Succinate ER 50 MG Oral Tablet Extended Rel ease 24 Hour 10/07/2019 - 10/05/2020 Provider: Kvng Blackwell MD Diagnosis: 1 PO QD predniSONE 1MG Oral Tablet 11/24/2018 - 06/21/2019 Provider: Diagnosis: 3 tabs PO daily Metoprolol Succinate ER 50MG Oral Tablet Extended Rele ase 24 Hour 10/11/2018 - 06/21/2019 Provider: Kvng Blackwell MD Diagnosis: 1 PO QD PredniSONE 10MG Oral Tablet 02/24/2018 - 06/21/2019 Provider : Nancy Fox RPA Diagnosis: Polymyalgia rheumati ca as directed - as directed - 2 tabs PO qd x 1 week, then 1.5 tabs PO qd x 4 weeks, then 1 tab PO qd thereafter Metoprolol Succinate ER 50MG Oral Tablet Extended Rele ase 24 Hour 10/09/2017 - 10/11/2018 Provider: Kvng Blackwell MD Diagnosis: 1 PO QD PredniSONE 5MG Oral Tablet 10/09/2017 - 02/24/2018 Provider: Kvng Blackwell MD Diagnosis: 2 PO QD and as directed PredniSONE 10MG Oral Tablet 08/11/2017 - 12/22/2017 Provider : Kvng Blackwell MD Diagnosis: take as directed 2 PO QD x1wk, then 1.5 PO QD x4 wks then 1 PO QD PredniSONE 20MG Oral Tablet 07/16/2017 - 10/09/2017 Provider : Nish Malik PA-C Diagnosis: Other allergic rhini tis Take 1 tablet daily PO for 7 days Zostavax 11896 UNT/0.65ML Suspension Reconstituted - 01/10/2021 Provider: Kvng Blackwell MD Diagnosis: as directed 1 unit dose SQ Metoprolol Succinate ER 50 MG Tablet Extended Release 24 Hour 10/09/2016 - 10/09/2017 Provider: Kvng Blackwell MD Diagnosis: 1 PO QD Fluticasone Propionate 50 MCG/ACT Suspension 09/11/2016 - Provider: Kvng Blackwell MD Diagnosis: 2 sprays QD each nostril Azithromycin 250 MG Tablet 06/11/2016 - 09/11/2016 Provider: Nancy Fox RPA Diagnosis: as directed Take 2 tabs PO x 1 day, then 1 tab PO daily x 4 days. Zostavax 71651 UNT/0.65ML Solution Reconstituted 12/03/2015 - 12/09/2016 Provider: Kvng Blackwell MD Diagnosis: as directed- 1 unit IM x 1 to be given at pharmacy Calamine Lotion 09/14/2015 - 06/11/2016 Provider: Nish Malik PA-C Diagnosis: Apply to affected areas BID for 10 days Metoprolol Succinate ER 50 MG Tablet Extended Release 24 Hour 08/30/2015 - 09/11/2016 Provider: Kvng Blackwell MD Diagnosis: 1 PO QD Zostavax 22259 UNT/0.65ML Solution Reconstituted 06/04/2015 - 12/03/2015 Provider: Nancy Fox RPA Diagnosis: as directed- 1 unit IM x 1 to be given at pharmacy Metoprolol Tartrate 25 MG Tablet 03/09/2015 - 08/30/2015 Pro vider: Kvng Blackwell MD Diagnosis: 1 PO BID Cefprozil 500 MG Tablet 10/02/2014 - 11/23/2014 Provider: Izabel Hsu TIME CHECKER- Diagnosis: 1 tab po BID x 10 days. Metoprolol Tartrate 25 MG OR TABS 09/29/2013 - 11/23/2014 Pr ovider: Diagnosis: Medications Administered Includes: Administered Medications in patient's chartNo Administered Medications Recorded Vital Signs Includes: Vital Signs from 01/11/2020 through 01/10/2021 Vital Name 01/10/2021 01:19P 07/10/2020 02:08P 07/10/2020 01:45P 06/26/2020 01:55P 06/26/2020 01:30P Blood Pressure Sitting (mmHg) 136/78 146/84 170/92 142/82 169/80 Pulse Rate-Sitting (bpm) 62 68 68 Respiration Rate (breaths/min) 22 Height (in) 60.75 60.75 60.75 Weight (lb) 179 185 185 Body Mass Index (kg/m2) 34.1 35.2 3 5.2 Body Surface Area (m2) 1.80 1.82 1. 82 Note: MD recheck MD recheck Vital Name 06/26/2020 01:29P 06/26/2020 01:28P Blood Pressure Sitting (mmHg) 169/80 169/80 Pulse Rate-Sitting (bpm) 68 68 Height (in) 60.75 60.75 Weight (lb) 185 185 Body Mass Index (kg/m2) 35.2 35.2 Body Surface Area (m2) 1.82 1.82 Results Includes: Results from 01/11/2020 through 01/10/2021 CBC [facility] In-house [facility] Ordered by Nancy Fox [facility] on 06/21/[address] [place] [address], [id number] Collected: 06/21/2020 Reported: 06/21/2020 14:25 tel : ext. 1500 GRAN# 3.3 /mm3 (2.5-7.5) None Note: Responsible Observer: KM GRAN% 56.6 % (50.0-75.0) None Note: Responsible Observer: KM HCT 40.4 % (37-47) None Note: Responsible Observer: KM HGB 13.1 g/dl (12.0-17.4) None Note: Responsible Observer: KM LY# 1.8 /mm3 (1.3-4.0) None Note: Responsible Observer: KM LY% 32.0 % (25-40.0) None Note: Responsible Observer: KM MCH 31.3 pg (27.0-34.0) None Note: Responsible Observer: KM MCHC 32.5 G/DL (30.0-35.0) None Note: Responsible Observer: KM MCV 96.4 um3 (76.0-94.0) H (High) Note: Responsible Observer: KM MID# 0.7 /mm3 (0.1-0.7) None Note: Responsible Observer: KM MID% 11.4 % (3.0-7.0) H (High) Note: Responsible Observer: KM MPV 10.0 um3 (8.0-15.0) None Note: Responsible Observer: KM PLT 188 /mm3 (150-440) None Note: Responsible Observer: KM RBC 4.19 /mm3 (4.00-5.50) None Note: Responsible Observer: KM RDW 15.1 % (13.0-15.0) H (High) Note: Responsible Observer: KM WBC 5.8 /mm3 (4.0-10.0) None Note: Responsible Observer: KM Reviewed by Nancy Fox RPA on 06/21; All test results are final unless otherwise noted. [facility] Doctor's In-house Laboratory Ordered by Nancy Fox RPA on 06/21/[address] [place] [address], [facility] Collected: 06/21/2020 Reported: 06/21/2020 14:25 tel : ext. 1500 Albumin 4.2 g/dl (3.4-5.0) None Note: Responsible Observer: KM Alkaline Phos 56 IU/L (39-117) None Note: Responsible Observer: KM ALT 12 IU/L (4-40) None Note: Responsible Observer: KM AST 13 IU/L (4-37) None Note: Responsible Observer: KM Urea Nitrogen 22 mg/dl (6-20) H (High) Note: Responsible Observer: KM Calcium 8.4 mg/dl (8.4-10.2) None Note: Responsible Observer: KM Chloride 106 mmol/L (96-108) None Note: Responsible Observer: KM CO2 24 mmol/L (23-31) None Note: Responsible Observer: KM Creatinine 0.9 mg/dl (0.5-1.2) None Note: Responsible Observer: KM EGFR - AfricanAm > 60 N/A (-) None Note: Responsible Observer: KM EGFR - Non AF AM > 60 N/A (-) None Note: Responsible Observer: KM Glucose 102 mg/dl (70-105) None Note: Responsible Observer: KM Potassium 5 mmol/L (3.2-5.4) None Note: Responsible Observer: KM Sodium 143 mmol/L (133-145) None Note: Responsible Observer: KM Total Bilirubin 0.5 mg/dl (0.0-1.2) None Note: Responsible Observer: KM Total Protein 6.5 g/dl (6.0-8.0) None Note: Responsible Observer: KM Reviewed by Nancy Fox RPA on 06/21; All test results are final unless otherwise noted. Lipid Panel [facility]-house [facility] Ordered by Nancy Fox RPA on 06/21/2020 [address] [place], [address] Collected: 06/21/2020 Reported: 06/21/2020 14:25 tel : ext. 1500 Cholesterol 234 mg/dl (135-200) H (High) Note: Responsible Observer: KM Dir. LDL 126 mg/dl (50-150) None Note: Responsible Observer: KM HDL 59 mg/dl (35-55) H (High) Note: Responsible Observer: KM Triglycerides 145 mg/dl (40-150) None Note: Responsible Observer: KM Reviewed by Nancy Fox RPA on 06/21; All test results are final unless otherwise noted. 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 ; [employer]st 12/24/2017 Under stress 10/09/2017 Psychosocial support is sufficient 11/23/2014 Smoking status : Never smoker 11/22/2013 In monogamous relationship 11/22/2013 No consumption of alcohol 11/22/2013 No tobacco use 11/22/2013 Not using drugs 11/22/2013 Single 11/22/2013 Procedures and Surgical History Includes: Procedures from 01/11/2020 through 01/10/2021 Procedures Code Diagnosis Performing Provider Service Location Service Date MODERNA administration, 2nd dose 0012A Encounter for i mmunization Kvng Blackwell MD [facility] 08/09/2020 MODERNA vaccine, 1st or 2nd dose 19461 Encounter for i mmunization Kvng Blackwell MD [facility] 08/09/2020 MODERNA vaccine, 1st or 2nd dose 10914 Encounter for i mmunization Kvng Blackwell MD [facility], [facility] 07/12/2020 MODERNA administration, 1st dose 0011A Encounter for i mmunization Kvng Blackwell MD [facility], [facility] 07/12/2020 no charge procedure [place] Actinic keratosis Kvng bah MD [facility], [facility] 07/10/2020 - subseq't annual wellness exam(1 yr after Initial) G0439 Encntr for general adult medical exam w/o abnormal findings Kvng Blackwell MD [facility], [facility] 06/26/2020 -Annual depression screening- 15 min. (Distinct Sepe rate service-same day) G0444 Encntr for general adult medical exam w/ o abnormal findings, Encounter for screening for other disorder Kvng Blackwell MD [facility], [facility] 06/26/2020 Venipuncture (routine) 52542 Polymyalgia rheum atica, Supraventricular tachycardia, Encntr for general adult medical exam w/o abnormal findings [facility] 06/21/2020 CBC 14696 Polymyalgia rheumati ca, Supraventricular tachycardia, Encntr for general adult medical exam w/o abnormal findings Nancy Reed [facility], [facility] 06/21/2020 CMP-Complete Metabolic Profile 73133 Polymyalg ia rheumatica, Supraventricular tachycardia, Encntr for general adult medical exam w/o abnormal findings Nancy Reed [facility], [facility] 06/21/2020 Fasting Lipid Profile 59858 Mixed hyperlipidemia, Supr aventricular tachycardia Nancy Reed [facility], [facility] 06/21/2020 Surgical History Last Updated History of cataract surgery ; right 11/22/2013 History of hysterectomy 11/22/2013 History of tonsillectomy 11/22/2013 Medical History Includes: Medical History in patient's chart Description Last Updated Health care proxy not on file If no HCP in chart the pt was given our informational handout and FAQ sheet along with a blank HCP form to be brought back at the next visit. All questions answered 06/17/2018 History of colonoscopy 09/03/2017 06/17/2018 Stings, bites, or scratches 09/14/2015 History of compression fracture of thoracic vertebral body - T11 11/22/2013 Family History Includes: Family History in patient's chart Description Last Updated Sororal history of colon cancer 06/17/2018 Siblings 2 brothers & 4 Sisters. 1 sist er with DM. One sister of colon CA 06/17/2018 Maternal history of type 2 diabetes mellitus 5 Father at age 89; Brain Cancer 11/22/2013 Mother at age 60's; DM 11/22/2013 Review of Systems Review of Systems not supported for this document typeNo Review of Systems Recorded Mental Status Mental Status not supported for this document typeNo Mental Status Recorded Functional Status Functional Status not supported for this document typeNo Functional Status Recorded Physical Exam Physical Exam not supported for this document typeNo Physical Exam Recorded Immunizations Includes: Immunizations in patient's chart Vaccine Dose # Date Site Reaction(s) Status Source Moderna COVID-19 vaccine 1 07/12/2020 Left Deltoid C omplete (Administered) [facility] Moderna COVID-19 vaccine 2 08/09/2020 [facility] (Pneum[facility] 23) 1 12/03/2015 Left Arm Complete ( Administered[facility] [id number] 1 11/23/2014 Left Arm Complete (Administe red) [facility] Tdap (> 7 yrs) 1 06/13/2013 Complete (Reported) Pa tient Allergies Includes: Active, inactive, and resolved Allergies Substance Type Reaction Onset Date - Time Resolved Date - Ti me Status Zithromax Allergy Skin Rashes, itching 07/16/2017 - 12:00AM Active Penicillin G Benzathine Allergy Skin Rashes, Hives 11/22/2013 - 12 :00AM Active Eggs Allergy Nausea, Vomiting, Diarrhea 11/22/2013 - 12:00AM Active Doxycycline Hyclate Allergy Nausea, Vomiting, Diarrhea 11/22/2013 - 12:00AM Active Cefzil Allergy Skin Rashes, Hives 11/23/2014 - 12:00AM Active Encounters Includes: Encounters from 01/11/2020 through 01/10/2021 Encounter Provider Location Date Check-In Time Check-Out Time D iagnosis incident to previous visit- Nancy Fox [facility], [facility] 01/10/2021 1:16PM 2:23PM Polymyalgia Rheu matica, Osteopenia, Paroxysmal Atrial Tachycardia, Osteoarthritis Knee Left COVID Vaccine Kvng Blackwell MD [facility], [facility] 08/09/2020 1:09PM 1:43PM COVID Vaccine Kvng Blackwell MD [facility], [facility] 07/12/2020 1:27PM 2:00PM Ambulatory Procedure Kvng Blackwell MD [facility], [facility] 07/10/2020 1:31PM 2:43PM Skin Neoplasm Malign ant Carcinoma Basal Cell ANNUAL PE-followup exam Kvng Blackwell MD [facility], [facility] 06/26/2020 1:02PM 2:02PM Routine History and Physical Senior Citizen (65-80 Yrs) followup Kvng Blackwell MD [facility], [facility] 06/26/2020 1:02PM 2:02PM Actinic Keratosis, Skin Neop lasm Malignant Carcinoma Basal Cell, Paroxysmal Atrial Tachycardia, Polymyalgia Rheumatica, Essential Hypertension, Hypercholesterolemia Essential [facility] Annual Wellness SUBSEQUENT visi t(> 1yr since prev. Kvng Blackwell MD [facility], [facility] 06/26/2020 1:02PM 2:02PM Routine History and Physical Senior Citizen (65-80 Yrs) Insurance Includes: Active Insurance Policies Plan Name Member ID Group # Subscriber Relationship Effective Da jo 1 - [employer] Medicare Advantage Plan [id number] B lizette L Beutel Self 04/20/2019 - Unknown Advance Directives Includes: Current Advance DirectivesNo Advance Directives Recorded Health Concerns Includes: Active Health ConcernsNo Active Health Concerns Recorded Goals Includes: Active GoalsNo Active Goals Recorded Interventions Includes: Interventions for active GoalsNo Interventions Recorded Evaluations & Outcomes Includes: Evaluations & Outcomes for active GoalsNo Outcomes Recorded
--- OUTSIDE RECORDS SUMMARY | 2021-02-17 08:23 | CCD ---
Author Author [facility] Organization [facility] Address [address] [place] [address] Phone Care Team Providers Care Bathroom Tiling Professional Name Role Phone Brenton TOBAR, Graeme Reed Unavailable Unavailable CN[place], Cardiology Unavailable [phone] Rishi TOBAR, Kvng Guillen PP [phone] Recore LAMINA SEARCHER, Geri Unavailable [phone] Reason for Referral No Reason for Referral Recorded Problems Includes: Active, inactive, and resolved Problems All Visits Onset Date - Time Resolved Date - Time Provider Co ndition Status Polymyalgia Rheumatica 12/22/2019 - 11:21AM Nancy topete RPA Active Note: [facility] Osteoarthritis Localized Primary Hip Left 12/03/2015 - 12:00AM Kvng Blackwell MD Active Note: Unchanged Osteopenia 11/22/2013 - 12:00AM Kvng gonzalez MD Active Note: Unchanged Paroxysmal Atrial Tachycardia 11/22/2013 - 12:00AM Mark Blackwell MD Active Note: Unchanged Plan of Treatment Pending Tests Order Diagnosis Results Due Ordering Provi noel Xrays - X-Ray Orders Knee X-Ray Pain in left knee 01/21/20 Virgilio Fox RPA Referral Reservation Agent Basal cell carcinoma of skin, unspecifie d 09/24/20 Kvng Blackwell MD Future Appointments Date Time Location Provider Ambulatory Procedure 07/10/2020 1:45PM [facility] chaitanya Jojo Blackwell MD incident to previous visit- 01/10/2021 1:40PM [facility] Jojo Fox RPA Findings Encounter Date Education and [...] Ordered Transition in care, clinical summary provided [facility] Annual Wellness SUBSEQUENT visi t(> 1yr [...] to previous visit- with Nancy Fox RPA 12/08/2018 Tylenol for discomfort or fever. Push [...] sooner if issues arise followup with Nancy Derek Fox [facility] 06/15/2017 Education and counseling ; Age and gende r specific counceling about preventative health discussed with the patient using USPTF and/or ACP guidelines on health maintenance and screening. Will plan to update mammogram and bone density. Also, agreeable to update screening colonoscopy. Otherwise, up to date with [facility] Annual Wellness SUBSEQUENT visi t(> 1 yr since prev. with Nancy Derek Fox [facility] 06/15/2017 Education and counseling ; patient instr [...] in the interim followup with Nancy Fox [facility] 06/11/2016 Education and counseling ; Age and gende r specific counceling about preventative health discussed with the patient using USPTF and/or ACP guidelines on health maintenance and screening. Patient doing well. Mammogram and bone density q2 years and will update 05/2017. Otherwise, up to date Annual Wellness SUBSEQUENT visi t(> 1yr since prev. with Nancy Derek Fox [facility] 06/11/2016 Ordered treat underlying etiology With the [...] Keep November appointment. 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 Will otherwise plan to see back in 6 months for follow up with fasting labs prior. See as needed in the interim followup with Nancy Fox [facility] 06/04/2015 Education and counseling ; Age and gende r specific counceling about preventative health discussed with the patient using USPTF and/or ACP guidelines on health maintenance and screening. Refuses breast exam but agrees to update mammogram screening. Will need repeat colonoscopy next year. Otherwise up to date with [facility] Annual Wellness SUBSEQUENT visi t(> 1 yr since prev. with Nancy Fox [facility] 06/04/2015 Patient education about medication Poss ible side effects of medications discussed with good understanding. Allergies verified. Patient instructed to take all medication as directed. Warm compresses. Saline flushes. May continue OTC mucinex, BP controlled. Follow up in 7-10 days if no improvement or sooner if needed. urgent visit with Izabel Hsu [facility]- 10/02/2014 Education and counseling ; Age and gende r specific counceling on preventative health discussed with the patient using USPTF and/or ACP guidlines on health maintenance and screening. Currently up to date with health maintenance screening. Will plan to follow up yearly or as needed in the interim if problems arise new patient with Kvng Blackwell MD 11/22/2013 Assessments Includes: Assessments for all patient encounters Findings Encounter Date Routine senior citizen history and physical (65-80 yrs ) ANNUAL PE-followup exam with Kvng Blackwell MD 06/26/2020 Actinic keratosis [...] incident to previous visit - with Nancy [facility] 12/22/2019 Osteopenia incident to previous visit- with Nancy M [facility] 12/22/2019 Paroxysmal atrial tachycardia which is well-controlled incident to previous visit- with Nancy M [facility] 12/22/2019 Polymyalgia rheumatica which is stable incident to pre vious visit- with Nancy M [facility] 12/22/2019 Routine senior citizen history and physical (65-80 yrs ) ANNUAL PE-followup with Kvng Blackwell MD 06/21/2019 Asymptomatic (natural) [...] incident to previous vis it- with Nancy M Fox RPA 12/08/2018 Polymyalgia rheumatica incident to previous visit- with Elyse shipley M Fox RPA 12/08/2018 Paroxysmal atrial tachycardia followup with Kvng bah MD 06/17/2018 Polymyalgia rheumatica which is well-controlled follow up with Kvng Blackwell MD 06/17/2018 Routine senior citizen history and physical (65-80 yrs ) Annual Wellness SUBSEQUENT visi t(> 1yr since prev. with Kvng Blackwell MD 06/17/2018 Arthralgia , suspect PMR return sick visit with Nancy Carrillo [facility] 02/24/2018 Polymyalgia rheumatica which is showing no evidence of disease followup with Kvng Blackwell MD 12/22/2017 Nephrolithiasis of the left kidney which is resolved s ick visit with Nancy Fox [facility] 08/24/2017 Chronic rhinitis sick visit with Kvng Hopkins 08/11/2017 Polymyalgia rheumatica Probable based o n symptomatology and response to prednisone. We'll get sedimentation rate and then give patient a call on treatment plan sick visit with Kvng Blackwell MD 08/11/2017 Allergic rhinitis urgent visit with Nish Malik PA-C 2017 Osteopenia followup with [facility] 2017 Paroxysmal atrial tachycardia followup with [facility] 06/15/2017 Trapezius muscle strain followup with [facility] Osteopenia Annual Wellness SUBSEQUEN T visi t(> 1yr since prev. with [facility] 06/15/2017 Paroxysmal atrial tachycardia Annual Wellness SUBSE QUENT visi t(> 1yr since prev. with [facility] 06/15/2017 Routine senior citizen history and physical (65-80 yrs ) Annual Wellness SUBSEQUENT visi t(> 1yr since prev. with [facility] 06/15/2017 Paroxysmal atrial tachycardia which is stable followup with Kvng Blackwell MD 12/09/2016 Allergic rhinitis Possible sick visit with Kvng bah MD 09/11/2016 Acute sinusitis , mild followup with [facility] Paroxysmal atrial tachycardia which is well-controlled followup with Nancy [facility] 06/11/2016 Routine senior citizen history and physical (65-80 yrs ) Annual Wellness SUBSEQUENT visi t(> 1[facility] Localized primary osteoarthritis of the left [...] of thigh/ IT band [facility] Paroxysmal atrial tachycardia which is well-controlled followup with Nancy M [facility] 06/04/2015 Normal routine history and physical senior citizen (65 -80) Annual Wellness SUBSEQUENT visi t(> 1yr since prev. with Nancy Fox [facility] 06/04/2015 Normal routine history and physical senior citizen (65 -80) Annual Wellness SUBSEQUENT visi t(> 1yr since prev. with Kvng Blackwell MD 11/23/2014 Sinusitis urgent visit with Izabel NOELP- 10/02/2014 Osteopenia new patient with Kvng Blackwell MD 11/22/2013 Paroxysmal atrial tachycardia new patient with Kvng Blackwell MD 11/22/2013 Instructions Instructions not supported for this document typeNo Instructions Recorded Medical Equipment - Implanted Devices Includes: Current and historical DevicesNo Medical Equipment Recorded Medications Includes: Current and historical Medications Current Medications (continue as prescribed) predniSONE 1 MG Oral Tablet 12/22/2019 Provider: Diagnosis: 4.5mg PO Daily Metoprolol Succinate ER 50 MG Oral Tablet Extended Release 2 4 Hour 10/07/2019 Provider: Kvng Blackwell MD Diagnosis: 1 PO QD Fluticasone Propionate 50MCG/ACT Nasal Suspension 08/11/2017 Provider: Kvng Blackwell MD Diagnosis: 2 sprays QD each nostril Zostavax 29522 UNT/0.65ML Suspension Reconstituted 7 Provider: Kvng Blackwell MD Diagnosis: as directed 1 unit dose SQ Calcium 600-200 MG-UNIT OR TABS 11/22/2013 Provider : Diagnosis: Multivitamins OR CAPS 11/22/2013 Provider: Diagnosis: Past Medications on file predniSONE 1MG Oral Tablet 11/24/2018 - 06/21/2019 [...] 24 Hour 10/09/2017 - 10/11/2018 Provider: Kvng Blcakwell MD Diagnosis: 1 PO QD PredniSONE 5MG [...] 1 tablet daily PO for 7 days Metoprolol Succinate ER 50 MG Tablet [...] tab PO daily x 4 days. Zostavax 47943 UNT/0.65ML Solution Reconstituted 12/03/2015 - 12/09/2016 Provider: Kvng Blackwell MD Diagnosis: as directed- 1 unit IM x 1 to be given at pharmacy Calamine Lotion 09/14/2015 - 06/11/2016 Provider: Nish Malik PA-C Diagnosis: Apply to affected areas BID for 10 days Metoprolol Succinate ER 50 MG Tablet Extended Release 24 Hour 08/30/2015 - 09/11/2016 Provider: Kvng Blackwell MD Diagnosis: 1 PO QD Zostavax 77407 UNT/0.65ML Solution Reconstituted 06/04/2015 - 12/03/2015 Provider: Nancy Fox RPA Diagnosis: as directed- 1 unit IM x 1 to be given at pharmacy Metoprolol Tartrate 25 MG Tablet 03/09/2015 - 08/30/2015 Pro vider: Kvng Blackwell MD Diagnosis: 1 PO BID Cefprozil 500 MG Tablet 10/02/2014 - 11/23/2014 Provider: Izabel Hsu POULTRY FEED SUPERVISOR- Diagnosis: 1 tab po BID x 10 days. Metoprolol Tartrate 25 MG OR TABS 09/29/2013 - 11/23/2014 Pr ovider: Diagnosis: Medications Administered Includes: Administered Medications in patient's chartNo Administered Medications Recorded Vital Signs Includes: Vital Signs from 06/27/2019 through 06/26/2020 Vital Name 06/26/2020 01:55P 06/26/2020 01:30P 06/26/2020 01:29P 06/26/2020 01:28P 12/22/2019 10:02A Blood Pressure Sitting (mmHg) 142/82 169/80 169/80 169/80 134/78 Pulse Rate-Sitting (bpm) 68 68 68 56 Height (in) 60.75 60.75 60.75 60.75 Weight (lb) 185 185 185 175 Body Mass Index (kg/m2) 35.2 35.2 35.2 3 3.3 Body Surface Area (m2) 1.82 1.82 1.82 1. 78 Respiration Rate (breaths/min) 20 Note: MD recheck Results Includes: Results from 06/27/2019 through 06/26/2020 CBC [facility] In-house [facility] Ordered by Nancy Fox RPA on 06/21/[address] [place] [address], [id number] Collected: 06/21/2020 Reported: 06/21/2020 14:25 tel : [...] test results are final unless otherwise noted. 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 (60) G0444 Encntr for general adult medical exam w/o abnormal findings, Encounter for screening for other disorder Kvng Blackwell MD 06/26/2020 - subseq't annual wellness exam(1 yr after Initial) G0439 Encntr for general adult medical exam w/o abnormal findings Kvng Blackwell MD 06/26/2020 Fasting Lipid Profile 62654 Polymyalgia rheuma lee, Supraventricular tachycardia, Encntr for general adult medical exam w/o abnormal findings Nancy Reed [facility], [facility] 06/21/2020 CMP-Complete Metabolic Profile 70083 Polymyalg ia rheumatica, Supraventricular tachycardia, Encntr for general adult medical exam w/o abnormal findings Nancy Reed [facility], [facility] 06/21/2020 CBC 15982 Polymyalgia rheumati ca, Supraventricular tachycardia, Encntr for general adult medical exam w/o abnormal [facility] 06/21/2020 Venipuncture (routine) 89395 Polymyalgia rheum atica, Supraventricular tachycardia, Encntr for general adult medical exam w/o abnormal [facility] 06/21/2020 Surgical History Last Updated History of [...] Dose # Date Site Reaction(s) Status Source PCV (Pneumovax 23) 1 12/03/2015 Left Arm Complete ( Administered) [facility] [id number] 1 11/23/2014 Left Arm Complete (Administe red) [facility] Tdap (> 7 yrs) 1 06/13/2013 Complete (Reported) Ishmael bhagat Allergies Includes: Active, inactive, and resolved Allergies [...] - 12:00AM Active Encounters Includes: Encounters from 06/27/2019 through 06/26/2020 Encounter Provider Location Date Check-In Time Check-Out Time D iagnosis ANNUAL PE-followup Kvng Blackwell MD [facility], [facility] 06/26/2020 1:02PM 2:02PM Routine History and Physical Senior Citizen (65-80 Yrs) followup Kvng Blackwell MD [facility], [facility] 06/26/2020 1:02PM 2:02PM Actinic Keratosis, Skin Neop lasm Malignant Carcinoma Basal Cell, Paroxysmal Atrial Tachycardia, Polymyalgia Rheumatica, Essential Hypertension, Hypercholesterolemia Essential Annual Wellness SUBSEQUENT visi t(> 1yr since prev. Kvng Blackwell MD [facility], [facility] 06/26/2020 1:02PM 2:02PM Routine History and Physical Senior Citizen (65-80 Yrs) incident to previous visit- Nancy Fox RPA [facility], [facility] 12/22/2019 9:57AM 10:44AM Polymyalgia Rheu matica, Paroxysmal Atrial Tachycardia, Osteoarthritis Knee Left, Osteopenia [Patient Encounter] Kvng Blackwell MD 09/06/2019 0 06/21/2019 11:37AM 06/21/2019 11:59PM Insurance Includes: Active Insurance Policies Plan Name Member ID Group # Subscriber Relationship Effective Da jo 1 - [employer] Medicare Advantage Plan [id number] B lizette Obandol Self 04/20/2019 - Unknown Advance Directives Includes: Current Advance DirectivesNo Advance Directives Recorded Health Concerns Includes: Active Health ConcernsNo Active Health Concerns Recorded Goals Includes: Active GoalsNo Active Goals Recorded Interventions Includes: Interventions for active GoalsNo Interventions Recorded Evaluations & Outcomes Includes: Evaluations & Outcomes for active GoalsNo Outcomes Recorded
--- OUTSIDE RECORDS SUMMARY | 2021-02-17 08:23 | CCD ---
Author Author [facility] Organization [facility] Address [address] [place] [address] Phone Care Team Providers Care Jet Worker Name Role Phone Brenton TOBAR, Graeme Reed Unavailable Unavailable CN[place], Cardiology Unavailable [phone] Rishi TOBAR, Kvng Guillen PP [phone] Recore SOLAR BUSINESS DEVELOPER, Geri Unavailable [phone] Reason for Referral No Reason for Referral [...] left knee 01/21/20 Virgilio Fox RPA Referral Salesperson Neckties Basal cell carcinoma of skin, unspecifie d 09/24/20 Kvng Blackwell MD Future Appointments Date Time Location Provider COVID Vaccine 08/09/2020 1:20PM [facility] Jojo Blackwell MD incident to previous visit- 01/10/2021 1:40PM [facility] Jojo Fox RPA Findings Encounter Date Education [...] incident to previous visit- with Nancy Fox [facility] 12/08/2018 Tylenol for discomfort or fever. Push [...] if issues arise followup with Nancy Fox [facility] 06/15/2017 Education and counseling ; Age and gende r specific counceling about preventative health discussed with the patient using USPTF and/or ACP guidelines on health maintenance and screening. Will plan to update mammogram and bone density. Also, agreeable to update screening colonoscopy. Otherwise, up to date with health maintenance Annual Wellness SUBSEQUENT visi t(> 1 yr since prev. with Nancy Fox [facility] 06/15/2017 Education and counseling ; [...] in the interim followup with Nancy Fox [facility] 06/11/2016 Education and counseling ; Age and gende r specific counceling about preventative health discussed with the patient using USPTF and/or ACP guidelines on health maintenance and screening. Patient doing well. Mammogram and bone density q2 years and will update 05/2017. Otherwise, up to date Annual Wellness SUBSEQUENT visi t(> 1yr since prev. with Nancy Fox [facility] 06/11/2016 Ordered treat underlying etiology [...] Keep November appointment. 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 Will otherwise plan to see back in 6 months for follow up with fasting labs prior. See as needed in the interim followup with Nancy Fox RPA 06/04/2015 Education and counseling ; Age and gende r specific counceling about preventative health discussed with the patient using USPTF and/or ACP guidelines on health maintenance and screening. Refuses breast exam but agrees to update mammogram screening. Will need repeat colonoscopy next year. Otherwise up to date with [facility] Annual Wellness SUBSEQUENT visi t(> 1 yr since prev. with Nancy Fox RPA 06/04/2015 Patient education about medication Poss ible side effects of medications discussed with good understanding. Allergies verified. Patient instructed to take all medication as directed. Warm compresses. Saline flushes. May continue OTC mucinex, BP controlled. Follow up in 7-10 days if no improvement or sooner if needed. urgent visit with Izabel Hsu [facility] 10/02/2014 Education and counseling ; Age and gende r specific counceling on preventative health discussed with the patient using USPTF and/or ACP guidlines on health maintenance and screening. Currently up to date with [place] screening. Will plan to follow up yearly or as needed in the interim if problems arise new patient with Kvng Blackwell MD 11/22/2013 Assessments Includes: Assessments for all patient encounters Findings Encounter Date Basal cell carcinoma of the skin possib [...] to previous visit - with Nancy M [facility] 12/22/2019 Osteopenia incident to previous visit- with Nancy M Fox RPA 12/22/2019 Paroxysmal atrial tachycardia which is well-controlled incident to previous visit- with Nancy M [facility] 12/22/2019 Polymyalgia rheumatica which is stable incident to pre vious visit- with Nancy M Fox RPA 12/22/2019 Routine senior citizen history and physical [...] to previous visit- with Elyse shipley [facility] R[facility] 12/08/2018 Paroxysmal atrial tachycardia followup with Kvng bah MD 06/17/2018 Polymyalgia rheumatica which is well-controlled follow up with Kvng Blackwell MD 06/17/2018 Routine senior citizen history and physical (65-80 yrs ) Annual Wellness SUBSEQUENT visi t(> 1yr since prev. with Kvng Blackwell MD 06/17/2018 Arthralgia , suspect PMR return sick visit with Nancy Carrillo [facility] 02/24/2018 Polymyalgia rheumatica which is showing no evidence of disease followup with Kvng Blackwell MD 12/22/2017 Nephrolithiasis of the left kidney which is resolved [facility] Chronic rhinitis sick visit with Kvng [facility] 08/11/2017 Polymyalgia rheumatica Probable based o n symptomatology and response to prednisone. We'll get sedimentation rate and then give patient a call on treatment plan sick visit with Kvng Blackwell MD 08/11/2017 Allergic rhinitis urgent visit with Nish Malik PA-C 2017 Osteopenia followup with [facility] 2017 Paroxysmal atrial tachycardia followup with [facility] 06/15/2017 Trapezius muscle strain followup with [facility] Osteopenia Annual Wellness SUBSEQUEN T visi t(> 1yr since prev. with [facility] 06/15/2017 Paroxysmal atrial tachycardia Annual Wellness SUBSE QUENT visi t(> 1yr since prev. with [facility] 06/15/2017 Routine senior citizen history and physical (65-80 yrs ) Annual Wellness SUBSEQUENT visi t(> 1yr since prev. with [facility] 06/15/2017 Paroxysmal atrial tachycardia which is stable followup with Kvng Blackwell MD 12/09/2016 Allergic rhinitis Possible sick visit with Kvng bah MD 09/11/2016 Acute sinusitis , mild followup with [facility] Paroxysmal atrial tachycardia which is well-controlled followup with [facility] 06/11/2016 Routine senior citizen history and physical (65-80 yrs ) Annual Wellness SUBSEQUENT visi t(> 1yr since prev. with [facility] 06/11/2016 Localized primary osteoarthritis of the left [...] thigh/ IT band sick visit with Nancy Fox [facility] 07/09/2015 Allergic rhinitis followup with Nancy [facility] 2015 Paroxysmal atrial tachycardia which is well-controlled followup with [facility] 06/04/2015 Normal routine history and physical senior citizen (65 -80) Annual Wellness SUBSEQUENT visi t(> [facility] Normal routine history and physical senior citizen (65 -80) Annual Wellness SUBSEQUENT visi t(> 1yr since prev. with Kvng Blackwell MD 11/23/2014 Sinusitis urgent visit with Izabel Hsu [facility]- 10/02/2014 Osteopenia new patient with Kvng Blackwell [...] Diagnosis: 2 sprays QD each nostril Zostavax 95563 UNT/0.65ML Suspension Reconstituted 7 Provider: Kvng Blackwell [...] tab PO daily x 4 days. Zostavax 91764 UNT/0.65ML Solution Reconstituted 12/03/2015 - 12/09/2016 Provider: Kvng Blackwell MD Diagnosis: as directed- 1 unit IM x 1 to be given at pharmacy Calamine Lotion 09/14/2015 - 06/11/2016 Provider: Nish Malik PA-C Diagnosis: Apply to affected areas BID for 10 days Metoprolol Succinate ER 50 MG Tablet Extended Release 24 Hour 08/30/2015 - 09/11/2016 Provider: Kvng Blackwell MD Diagnosis: 1 PO QD Zostavax 25500 UNT/0.65ML Solution Reconstituted 06/04/2015 - 12/03/2015 Provider: Nancy Fox RPA Diagnosis: as directed- 1 unit IM x 1 to be given at pharmacy Metoprolol Tartrate 25 MG Tablet 03/09/2015 - 08/30/2015 Pro vider: Kvng Blackwell MD Diagnosis: 1 PO BID Cefprozil 500 MG Tablet 10/02/2014 - 11/23/2014 Provider: Izabel Hsu CARD TAPE CONVERTER OPERATOR-BC Diagnosis: 1 tab po BID x 10 days. Metoprolol Tartrate 25 MG OR TABS 09/29/2013 - 11/23/2014 Pr ovider: Diagnosis: Medications Administered Includes: Administered Medications in patient's chartNo Administered Medications Recorded Vital Signs Includes: Vital Signs from 07/13/2019 through 07/12/2020 Vital Name 07/10/2020 02:08P 07/10/2020 01:45P 06/26/2020 01:55P 06/26/2020 01:30P 06/26/2020 01:29P Blood Pressure Sitting (mmHg) 146/84 170/92 142/82 169/80 169/80 Pulse Rate-Sitting (bpm) 68 68 68 Height (in) 60.75 60.75 60.75 Weight (lb) 185 185 185 Body Mass Index (kg/m2) 35.2 35.2 3 5.2 Body Surface Area (m2) 1.82 1.82 1. 82 Note: MD hannah TOBAR recheck Vital Name 06/26/2020 01:28P 12/22/2019 10:02A Blood Pressure Sitting (mmHg) 169/80 134/78 Pulse Rate-Sitting (bpm) 68 56 Height (in) 60.75 60.75 Weight (lb) 185 175 Body Mass Index (kg/m2) 35.2 33.3 Body Surface Area (m2) 1.82 1.78 Respiration Rate (breaths/min) 20 Results Includes: Results from 07/13/2019 through 07/12/2020 [facility] Ordered by Nancy Fox RPA on 06/21/2020 [address] [place], [address] Collected: 06/21/2020 Reported: 06/21/2020 14:25 tel :[phone] ext. 1500 GRAN# 3.3 /mm3 (2.5-7.5) None [...] test results are final unless otherwise noted. [facility] Doctor's In-house Laboratory Ordered by Nancy Fox RPA on 06/21/2020 [address] [place], [address] Collected: 06/21/2020 Reported: 06/21/2020 14:25 tel :[phone] ext. 1500 Albumin 4.2 g/dl (3.4-5.0) None [...] Ordered by Nancy Fox RPA on 06/21/[address] [place] [address], [address] Collected: 06/21/2020 Reported: 06/21/2020 14:25 tel :[phone] ext. 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 (Distinct Sepe rate service-same day) G0444 Encntr for general adult medical exam w/ o abnormal findings, Encounter for screening for other disorder Kvng Blackwell MD [facility], [facility] 06/26/2020 - subseq't annual wellness exam(1 yr after Initial) G0439 Encntr for general adult medical exam w/o abnormal findings Kvng Blackwell MD [facility], [facility] 06/26/2020 Fasting Lipid Profile 74155 Polymyalgia rheuma lee, Supraventricular tachycardia, Encntr for general adult medical exam w/o abnormal findings [facility]/21[facility]2020 CMP-Complete Metabolic Profile 23185 Polymyalg ia rheumatica, Supraventricular tachycardia, Encntr for general adult medical exam w/o abnormal findings Nancy Fox [facility], [facility] 06/21/2020 CBC 51996 Polymyalgia rheumati ca, Supraventricular tachycardia, Encntr for general adult medical exam w/o abnormal findings Nancy Fox [facility] 06/21/2020 Venipuncture (routine) 01253 Polymyalgia rheum atica, Supraventricular tachycardia, Encntr for general adult medical exam w/o abnormal findings Nancy Fox [facility], [facility] 06/21/2020 Surgical History Last Updated History [...] 1 07/12/2020 Left Deltoid C omplete (Administered) [facility] PCV (Pneumovax 23) 1 12/03/2015 Left Arm Complete ( Administered) [facility] [id number] 1 11/23/2014 Left Arm Complete (Administe red) [facility] Tdap (> 7 yrs) 1 06/13/2013 Complete [...] - 12:00AM Active Encounters Includes: Encounters from 07/13/2019 through 07/12/2020 Encounter Provider Location Date Check-In Time Check-Out Time D iagnosis COVID Vaccine Kvng Blackwell MD [facility] 07/12/2020 1:27PM 2:00PM Ambulatory Procedure Kvng Blackwell MD [facility] 07/10/2020 1:31PM 2:43PM Skin Neoplasm Malign ant Carcinoma Basal Cell ANNUAL PE-followup Kvng Blackwell MD [facility], [facility] 06/26/2020 1:02PM 2:02PM Routine History and Physical Senior Citizen (65-80 Yrs) followup Kvng Blackwell MD [facility], [facility] 06/26/2020 1:02PM 2:02PM Actinic Keratosis, Skin Neop lasm Malignant Carcinoma Basal Cell, Paroxysmal Atrial Tachycardia, Polymyalgia Rheumatica, Essential Hypertension, Hypercholesterolemia Essential Annual Wellness SUBSEQUENT visi t(> 1yr since prev. Kvng Blackwell MD [facility], [facility] 06/26/2020 1:02PM 2:02PM Routine History and Physical Senior Citizen (65-80 Yrs) incident to previous visit- Nancy Fox [facility], [facility] 12/22/2019 9:57AM 10:44AM Polymyalgia Rheu matica, Paroxysmal Atrial Tachycardia, Osteoarthritis Knee Left, Osteopenia [Patient Encounter] Kvng Blackwell MD 09/06/2019 0 06/21/2019 11:37AM 06/21/2019 11:59PM Insurance Includes: Active Insurance Policies Plan Name Member ID Group # Subscriber Relationship Effective Da jo 1 - [employer] Medicare Advantage Plan [id number] B lizette L Beutel Self 04/20/2019 - Unknown Advance Directives Includes: Current Advance DirectivesNo Advance Directives Recorded Health Concerns Includes: Active Health ConcernsNo Active Health Concerns Recorded Goals Includes: Active GoalsNo Active Goals Recorded Interventions Includes: Interventions for active GoalsNo Interventions Recorded Evaluations & Outcomes Includes: Evaluations & Outcomes for active GoalsNo Outcomes Recorded
--- OUTSIDE RECORDS SUMMARY | 2021-02-17 08:23 | CCD | Continuity of Care Document ---
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 Paroxysmal supraventricular tachycardia Fazal East MD Onset: 01/01/2017 Polymyalgia rheumatica Beau Chaney MD Onset: 01/05/2018 Type 2 diabetes mellitus Virginia Gross, RN, PROPERTY FIELD ADJUSTER Onset: 2019 Obesity Manas Murry MD Onset: 01/11/2019 Social History Type Date Description Comments Sex Unknown ETOH Use Denies alcohol use Tobacco Use Start: Unknown Patient has never smoked Recreational Drug Use Denies Drug Use Allergies, Adverse Reactions, Alerts Active Allergies Criticality Reaction | Severity Comments Date Doxycycline Unable to assess criticality 11/08/2012 Eggs Unable to assess criticality 11/08/2012 Penicillin Unable to assess criticality 11/08/2012 Cefprozil Unable to assess criticality Urticaria | Moderate 01/01/2017 Medications Active Medications SIG Qnty Indications Ordering Provide r Date Metoprolol Succinate ER 50mg Tablets ER 24HR 1 by mouth every day 30tabs Beau Chaney MD Multi Vitamin Daily Tablets 1 by mouth every day Unknown Vitamin D3 25mcg (1000 Ut) Chewtabs daily Unknown Prednisone 1mg Tablets 1 1/2 pill po daily Unknown Vitamin B12 100mcg Tablets 1/2 tablet by mouth every day Unknown Calcium 600 600mg Tablets 1 p o daily Unknown Immunizations Description No Information Available Vital Signs Date Vital Result Comment 01/15/2021 3:32pm BP Systolic 168 mmHg x2 BP Diastolic 90 mmHg x2 BP Systolic Recheck 142 mmHg retake BP Diastolic Recheck 78 mmHg retake Heart Rate 72 /min Height 61 inches 5'1" Weight 175.00 lb BMI (Body Mass Index) 33.1 kg/m2 01/12/2020 1:30pm BP Systolic 130 mmHg BP Diastolic 82 mmHg Heart Rate 72 /min irregular Height 60 inches 5'0" Weight 175.00 lb BMI (Body Mass Index) 34.2 kg/m2 Results Description No Information Available Procedures Date Code Description Status 01/15/2021 10441 Office/Outpatient Established Mo d MDM 30-39 Min Completed Medical Devices Description No Information Available Encounters Type Date Location Provider Dx Diagnosis Office Visit 01/15/2021 3:15p [facility] Virginia Gross RN, PROPERTY FIELD ADJUSTER E11.9 Type 2 diabetes mellitus without complications R94.31 Abnormal electrocardiogram [ ECG] [EKG] E66.09 Other obesity due to excess calories I47.1 Supraventricular tachycardia R00.2 Palpitations I10 Essential (primary) hyperten berenice Assessments Date Code Description Provider 01/15/2021 E11.9 Type 2 diabetes mellitus without complications Virginia Gross RN, PROPERTY FIELD ADJUSTER 01/15/2021 R94.31 Abnormal electrocardiogram [ECG] [EKG] Virginia Gross RN, EREN 01/15/2021 E66.09 Other obesity due to excess [place] peter Virginia Gross RN, PROPERTY FIELD ADJUSTER 01/15/2021 I47.1 Supraventricular tachycardia Cassandra Gross RN, PROPERTY FIELD ADJUSTER 01/15/2021 R00.2 Palpitations Virginia Gross RN , PROPERTY FIELD ADJUSTER 01/15/2021 I10 Essential (primary) hypertension Virginia Gross RN, PROPERTY FIELD ADJUSTER Plan of Treatment Future Appointment(s):* 12/24/2021 1:00 pm - [facility] MIXING PLANT OPERATOR/Device (415) at [facility] * 11/26/2021 1:00 pm - [facility] (315) at [facility] 01/15/2021 - Virginia Gross RN, PROPERTY FIELD ADJUSTER* E11.9 Type 2 diabetes mellitus without complications * R94.31 Abnormal electrocardiogram [ECG] [EKG] * E66.09 Other obesity due to excess calories * I47.1 Supraventricular tachycardia * R00.2 Palpitations * I10 Essential (primary) hypertension* Follow up:* Follow up in 1 year with echocardiogram in Nov 2021 prior to follow up * Recommendations:* Currently at this time but he is doing well and will continue on her current medical regimen. I have asked her to monitor her salt intake as she does have some trace swelling. I have also explained to her that this is possibly venous insufficiency in regards to her sedentary lifestyle. I would like to see her get up and walk 30 minutes per day. She will have an echocardiogram completed in November 2021 and clinical follow-up in 1 year. Her labs are followed with primary care. She is asked to follow a low carb low salt low cholesterol diet. Patient was evaluated in our [place] office and plan of care has been reviewed with Dr. Murry. Functional Status Description No Information Available Mental Status Description No Information Available Referrals Description No Information Available
--- OUTSIDE RECORDS SUMMARY | 2021-02-17 08:23 | CCD ---
Author Author [facility] Organization [facility] Address [address] [place] [address] Phone Care Team Providers Care Triage Register Nurse Name Role Phone Brenton TOBAR, Graeme Reed Unavailable Unavailable CNY, Cardiology Unavailable [phone] Rishi TOBAR, Kvng Guillen PP [phone] Recore HARNESS CLEANER, Geri Unavailable [phone] Reason for Referral No Reason for Referral Recorded Problems Includes: Active, inactive, and resolved Problems All Visits Onset Date - Time Resolved Date - Time Provider Co ndition Status Polymyalgia Rheumatica 12/22/2019 - 11:21AM Nancy topete [facility] Active Note: [facility] Rheum Osteoarthritis Localized Primary [...] Pain in left knee 01/21/20 Virgilio Fox [facility] 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 Basal cell carcinoma of skin, unspecifie d 09/24/20 Kvng Blackwell MD Future Appointments Date Time Location Provider incident to previous visit- 01/10/2021 1:40PM [facility] Nancy Fox [facility] Findings Encounter Date Education and counseling Patient [...] incident to previous visit- with Nancy Fox [facility] 12/08/2018 Tylenol for discomfort or [...] if issues arise followup with Nancy Fox [facility] 06/15/2017 Education and counseling ; Age and gende r specific counceling about preventative health discussed with the patient using USPTF and/or ACP guidelines on health maintenance and screening. Will plan to update mammogram and bone density. Also, agreeable to update screening colonoscopy. Otherwise, up to date with health maintenance [facility] Annual Wellness SUBSEQUENT visi t(> 1 yr since prev. with Nancy Fox [facility] 06/15/2017 Education and counseling ; [...] in the interim followup with Nancy Fox [facility] 06/11/2016 Education and counseling ; Age and gende r specific counceling about preventative health discussed with the patient using USPTF and/or ACP guidelines on health maintenance and screening. Patient doing well. Mammogram and bone density q2 years and will update 05/2017. Otherwise, up to date Annual Wellness SUBSEQUENT visi t(> 1yr since prev. with Nancy Derek Ruddy [facility] 06/11/2016 Ordered treat underlying etiology [...] breath chest pain or marked dizziness. Keep [place] appointment. 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 Will otherwise plan to see back in 6 months for follow up with fasting labs prior. See as needed in the interim followup with Nancy Fox [facility] 06/04/2015 Education and counseling ; Age and gende r specific counceling about preventative health discussed with the patient using USPTF and/or ACP guidelines on health maintenance and screening. Refuses breast exam but agrees to update mammogram screening. Will need repeat colonoscopy next year. Otherwise up to date with [facility] Annual Wellness SUBSEQUENT visi t(> 1 yr since prev. with Nancy Fox [facility] 06/04/2015 Patient education about medication Poss ible side effects of medications discussed with good understanding. Allergies verified. Patient instructed to take all medication as directed. Warm compresses. Saline flushes. May continue OTC mucinex, BP controlled. Follow up in 7-10 days if no improvement or sooner if needed. urgent visit with Izabel Hsu [facility]- 10/02/2014 Education and counseling ; Age and gende r specific counceling on preventative health discussed with the patient using USPTF and/or ACP guidlines on health maintenance and screening. Currently up to date with health [facility]. Will plan to follow up yearly or [...] (65-80 yrs ) ANNUAL PE-followup exam with Kvgn Blackwell MD 06/26/2020 Actinic keratosis [place] [...] to previous visit - with Nancy M Fox [facility]PA 12/22/2019 Osteopenia incident to previous visit- with Nancy M [facility] 12/22/2019 Paroxysmal atrial tachycardia which is well-controlled incident to previous visit- with Nancy M [facility] 12/22/2019 Polymyalgia rheumatica which is stable incident to pre vious visit- with Nancy M [facility] 12/22/2019 Routine senior citizen history and physical [...] PMR return sick visit with Nancy Carrillo [facility] 02/24/2018 Polymyalgia rheumatica which is showing no evidence of disease followup with Kvng Blackwell MD 12/22/2017 Nephrolithiasis of the left kidney which is resolved s ick visit with Nancy Fox [facility] 08/24/2017 Chronic rhinitis sick visit [...] tachycardia which is well-controlled followup with Nancy [facility] 06/11/2016 Routine senior citizen history and physical (65-80 yrs ) Annual Wellness SUBSEQUENT visi t(> 1yr 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 with Nancy Fox [facility] 06/04/2015 Normal routine history and physical senior citizen (65 -80) Annual Wellness SUBSEQUENT visi t(> 1yr since prev. with Kvng Blackwell MD 11/23/2014 Sinusitis urgent visit with Izabel Hsu [employer]- 10/02/2014 Osteopenia new patient with Kvng Blackwell [...] Diagnosis: 2 sprays QD each nostril Zostavax 03716 UNT/0.65ML Suspension Reconstituted 7 Provider: Kvng Blackwell [...] tab PO daily x 4 days. Zostavax 92887 UNT/0.65ML Solution Reconstituted 12/03/2015 - 12/09/2016 Provider: Kvng Blackwell MD Diagnosis: as directed- 1 unit IM x 1 to be given at pharmacy Calamine Lotion 09/14/2015 - 06/11/2016 Provider: Nish Malik PA-C Diagnosis: Apply to affected areas BID for 10 days Metoprolol Succinate ER 50 MG Tablet Extended Release 24 Hour 08/30/2015 - 09/11/2016 Provider: Kvng Blackwell MD Diagnosis: 1 PO QD Zostavax 70576 UNT/0.65ML Solution Reconstituted 06/04/2015 - 12/03/2015 Provider: Nancy Fox RPA Diagnosis: as directed- 1 unit IM x 1 to be given at pharmacy Metoprolol Tartrate 25 MG Tablet 03/09/2015 - 08/30/2015 Pro vider: Kvng Blackwell MD Diagnosis: 1 PO BID Cefprozil 500 MG Tablet 10/02/2014 - 11/23/2014 Provider: Izabel Hsu [employer]-BC Diagnosis: 1 tab po BID x 10 days. Metoprolol Tartrate 25 MG OR TABS 09/29/2013 - 11/23/2014 Pr ovider: Diagnosis: Medications Administered Includes: Administered Medications in patient's chartNo Administered Medications Recorded Vital Signs Includes: Vital Signs from 08/13/2019 through 08/12/2020 Vital Name 07/10/2020 02:08P 07/10/2020 01:45P 06/26/2020 01:55P 06/26/2020 01:30P 06/26/2020 01:29P Blood Pressure Sitting (mmHg) 146/84 170/92 142/82 169/80 169/80 Pulse Rate-Sitting (bpm) 68 68 68 Height (in) 60.75 60.75 60.75 Weight (lb) 185 185 185 Body Mass Index (kg/m2) 35.2 35.2 3 5.2 Body Surface Area (m2) 1.82 1.82 1. 82 Note: MD recheck MD recheck Vital Name 06/26/2020 01:28P 12/22/2019 10:02A Blood Pressure Sitting (mmHg) 169/80 134/78 Pulse Rate-Sitting (bpm) 68 56 Height (in) 60.75 60.75 Weight (lb) 185 175 Body Mass Index (kg/m2) 35.2 33.3 Body Surface Area (m2) 1.82 1.78 Respiration Rate (breaths/min) 20 Results Includes: Results from 08/13/2019 through 08/12/2020 [facility] Ordered by Nancy Fox RPA on 06/21/2020 [address] [place], [address] Collected: 06/21/2020 Reported: 06/21/2020 14:25 tel :[phone] ext. 1500 GRAN# 3.3 /mm3 (2.5-7.5) None [...] test results are final unless otherwise noted. [facility] Doctor's In-house Laboratory Ordered by Nancy Fox RPA on 06/21/[address] [place] [address], [id number] Collected: 06/21/2020 Reported: 06/21/2020 14:25 tel :[phone] ext. 1500 Albumin 4.2 g/dl (3.4-5.0) None [...] Ordered by Nancy Fox RPA on 06/21/[address] [place] [address], 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 Under stress 10/09/2017 Psychosocial support is sufficient 11/23/2014 Smoking status : Never smoker 11/22/2013 In monogamous relationship 11/22/2013 No consumption of alcohol 11/22/2013 No tobacco use 11/22/2013 Not using drugs 11/22/2013 Single 11/22/2013 Procedures and Surgical History Includes: Procedures from 08/13/2019 through 08/12/2020 Procedures Code Diagnosis Performing Provider Service Location Service Date MODERNA administration, 2nd dose 0012A Encounter for i mmunization Kvng Blackwell MD [facility], [facility] 08/09/2020 MODERNA vaccine, 1st or 2nd dose 15332 Encounter for i mmunization Kvng Blackwell MD [facility], [facility] 08/09/2020 MODERNA vaccine, 1st or 2nd dose 79827 Encounter for i mmunization Kvng Blackwell MD [facility], [facility] 07/12/2020 MODERNA administration, 1st dose 0011A Encounter for i mmunization Kvng Blackwell MD [facility], [facility] 07/12/2020 no charge procedure [place] Actinic keratosis Kvng bah MD [facility], [facility] 07/10/2020 - subseq't annual wellness exam(1 yr after Initial) G0439 Encntr for general adult medical exam w/o abnormal findings Kvng Blackwell MD [facility], [facility] 06/26/2020 -Annual depression screening- 15 min. (Distinct Sepe rate service-same day) G0444 Encntr for general adult medical exam w/ o abnormal findings, Encounter for screening for other disorder Kvng Blackwell MD [facility], [facility] 06/26/2020 Venipuncture (routine) 25028 Polymyalgia rheum atica, Supraventricular tachycardia, Encntr for general adult medical exam w/o abnormal findings Nancy Fox [facility], [facility] 06/21/2020 CBC 37412 Polymyalgia rheumati ca, Supraventricular tachycardia, Encntr for general adult medical exam w/o abnormal findings Nancy Fox [facility], [facility] 06/21/2020 CMP-Complete Metabolic Profile 25449 Polymyalg ia rheumatica, Supraventricular tachycardia, Encntr for general adult medical exam w/o abnormal findings Nancy Fox [facility], [facility] 06/21/2020 Fasting Lipid Profile 29732 Mixed hyperlipidemia, Supr aventricular tachycardia Nancy Reed [facility], [facility] 06/21/2020 Surgical History Last Updated History [...] 1 07/12/2020 Left Deltoid C omplete (Administered) [facility] Moderna COVID-19 vaccine 2 08/09/2020 Left Deltoid C omplete (Administered) [facility] PCV (Pneumovax 23) 1 12/03/2015 Left Arm Complete ( Administered) [facility] [id number] 1 11/23/2014 Left Arm Complete (Administe red) [facility] Tdap (> 7 yrs) 1 06/13/2013 Complete [...] - 12:00AM Active Encounters Includes: Encounters from 08/13/2019 through 08/12/2020 Encounter Provider Location Date Check-In Time Check-Out Time D iagnosis COVID Vaccine Kvng Blackwell MD [facility], [facility] 08/09/2020 1:09PM 1:43PM COVID Vaccine Kvng Blackwell MD [facility], [facility] 07/12/2020 1:27PM 2:00PM Ambulatory Procedure Kvng Blackwell MD [facility], [facility] 07/10/2020 1:31PM 2:43PM Skin Neoplasm Malign ant Carcinoma Basal Cell ANNUAL PE-followup Kvng Blackwell MD [facility], [facility] 06/26/2020 1:02PM 2:02PM Routine History and Physical Senior Citizen (65-80 Yrs) followup Kvng Blackwell MD [facility], [facility] 06/26/2020 1:02PM 2:02PM Actinic Keratosis, Skin Neop lasm Malignant Carcinoma Basal Cell, Paroxysmal Atrial Tachycardia, Polymyalgia Rheumatica, Essential Hypertension, Hypercholesterolemia Essential Annual Wellness SUBSEQUENT visi t(> 1yr since prev. Kvng Blackwell MD [facility], [facility] 06/26/2020 1:02PM 2:02PM Routine History and Physical Senior Citizen (65-80 Yrs) incident to previous visit- Nancy Fox RPA [facility], [facility] 12/22/2019 9:57AM 10:44AM Polymyalgia Rheu matica, Paroxysmal Atrial Tachycardia, Osteoarthritis Knee Left, Osteopenia [Patient Encounter] Kvng Blackwell MD 09/06/2019 0 06/21/2019 11:37AM 06/21/2019 11:59PM Insurance Includes: Active Insurance Policies Plan Name Member ID Group # Subscriber Relationship Effective Da jo 1 - [employer] Medicare Advantage Plan [id number] B lizette L Beutel Self 04/20/2019 - Unknown Advance Directives Includes: Current Advance DirectivesNo Advance Directives Recorded Health Concerns Includes: Active Health ConcernsNo Active Health Concerns Recorded Goals Includes: Active GoalsNo Active Goals Recorded Interventions Includes: Interventions for active GoalsNo Interventions Recorded Evaluations & Outcomes Includes: Evaluations & Outcomes for active GoalsNo Outcomes Recorded
--- OUTSIDE RECORDS SUMMARY | 2021-02-17 08:23 | CCD | Continuity of Care Document ---
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 Paroxysmal supraventricular tachycardia Fazal East MD Onset: 01/01/2017 Polymyalgia rheumatica Beau Chaney MD Onset: 01/05/2018 Type 2 diabetes mellitus Virginia Gross, RN, DIRECTOR EMPLOYEE COMMUNICATIONS Onset: 2019 Obesity Manas Murry MD Onset: [...] Available Procedures Date Code Description Status 01/15/2021 36925 Office/Outpatient Established Mo d MDM 30-39 Min Completed Medical Devices Description No Information Available Encounters Type Date Location Provider Dx Diagnosis Office Visit 01/15/2021 3:15p [place] [facility] Virginia Gross RN, DIRECTOR EMPLOYEE COMMUNICATIONS E11.9 Type 2 diabetes mellitus without complications R94.31 Abnormal electrocardiogram [ ECG] [EKG] E66.09 Other obesity due to excess calories I47.1 Supraventricular tachycardia R00.2 Palpitations I10 Essential (primary) hyperten berenice Assessments Date Code Description Provider 01/15/2021 E11.9 Type 2 diabetes mellitus without complications Virginia Gross RN, DIRECTOR EMPLOYEE COMMUNICATIONS 01/15/2021 R94.31 Abnormal electrocardiogram [ECG] [EKG] Virginia Gross RN, EREN 01/15/2021 E66.09 Other obesity due to excess [place] Virginia Gross RN, DIRECTOR EMPLOYEE COMMUNICATIONS 01/15/2021 I47.1 Supraventricular tachycardia Cassandra Gross RN, DIRECTOR EMPLOYEE COMMUNICATIONS 01/15/2021 R00.2 Palpitations Virginia Gross RN , DIRECTOR EMPLOYEE COMMUNICATIONS 01/15/2021 I10 Essential (primary) hypertension Virginia Gross RN, DIRECTOR EMPLOYEE COMMUNICATIONS Plan of Treatment Future Appointment(s):* 12/24/2021 1:00 pm - [place] [facility]IX[facility]/Device (415) at [place] [facility] * 11/26/2021 1:00 pm - [place] [facility] (315) at [place] [facility] 01/15/2021 - Virginia Gross RN, DIRECTOR EMPLOYEE COMMUNICATIONS* E11.9 Type 2 diabetes mellitus without complications [...] cholesterol diet. Patient was evaluated in our [place] office and plan of care has been reviewed with Dr. Murry. Functional Status Description No Information Available Mental Status Description No Information Available Referrals Description No Information Available
--- OUTSIDE RECORDS SUMMARY | 2021-02-17 08:23 | CCD ---
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 Basal cell carcinoma of skin, unspecifie d 09/24/20 Kvng Blackwell MD Future Appointments Date Time Location Provider Ambulatory Procedure 07/10/2020 1:45PM [facility] chaitanya Jojo Blackwell MD incident to previous visit- 01/10/2021 1:40PM [facility] Jojo Fox RPA Findings Encounter Date [...] issues arise followup with Nancy Derek Fox [facility] 06/15/2017 Education and counseling ; Age and gende r specific counceling about preventative health discussed with the patient using USPTF and/or ACP guidelines on health maintenance and screening. Will plan to update mammogram and bone density. Also, agreeable to update screening colonoscopy. Otherwise, up to date with [facility] Annual Wellness SUBSEQUENT visi t(> 1 yr since prev. with Nancy Derek Fox [facility] 06/15/2017 Education and counseling ; patient [...] in the interim followup with Nancy Fox [facility] 06/11/2016 Education and counseling ; Age and gende r specific counceling about preventative health discussed with the patient using USPTF and/or ACP guidelines on health maintenance and screening. Patient doing well. Mammogram and bone density q2 years and will update 05/2017. Otherwise, up to date Annual Wellness SUBSEQUENT visi t(> 1yr since prev. with Nancy Derek Fox [facility] 06/11/2016 Ordered treat underlying etiology With [...] Keep November appointment. 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 Will otherwise plan to see back in 6 months for follow up with fasting labs prior. See as needed in the interim followup with Nancy Fox [facility] 06/04/2015 Education and counseling ; Age and gende r specific counceling about preventative health discussed with the patient using USPTF and/or ACP guidelines on health maintenance and screening. Refuses breast exam but agrees to update mammogram screening. Will need repeat colonoscopy next year. Otherwise up to date with [facility] Annual Wellness SUBSEQUENT visi t(> 1 yr since prev. with Nancy Fox [facility] 06/04/2015 Patient education about medication Poss ible side effects of medications discussed with good understanding. Allergies verified. Patient instructed to take all medication as directed. Warm compresses. Saline flushes. May continue OTC mucinex, BP controlled. Follow up in 7-10 days if no improvement or sooner if needed. urgent visit with Izabel Hsu [facility]- 10/02/2014 Education and counseling ; Age [...] for all patient encounters Findings Encounter Date Actinic keratosis Bridge of nose. We'l l [...] incident to previous visit- with Nancy M [facility] 12/22/2019 Paroxysmal atrial tachycardia which is well-controlled incident to previous visit- with Nancy M [facility] 12/22/2019 Polymyalgia rheumatica which is stable incident to pre vious visit- with Nancy M [facility] 12/22/2019 Routine senior citizen history and [...] to previous visit- with Elyse shipley M [facility] 12/08/2018 Paroxysmal atrial tachycardia followup with Kvng bah MD 06/17/2018 Polymyalgia rheumatica which is well-controlled follow up with Kvng Blackwell MD 06/17/2018 Routine senior citizen history and physical (65-80 yrs ) Annual Wellness SUBSEQUENT visi t(> 1yr since prev. with Kvng Blackwell MD 06/17/2018 Arthralgia , suspect PMR return sick visit with Nancythom Carrillo [facility] 02/24/2018 Polymyalgia rheumatica which is showing no evidence of disease followup with Kvng Blackwell MD 12/22/2017 Nephrolithiasis of the left kidney which is resolved [facility] Chronic rhinitis sick visit with Kvng Hopkins 08/11/2017 Polymyalgia rheumatica Probable based o n symptomatology and response to prednisone. We'll get sedimentation rate and then give patient a call on treatment plan sick visit with Kvng Blackwell MD 08/11/2017 Allergic rhinitis urgent visit with Nish Malik PA-C 2017 Osteopenia followup with [facility] 2017 Paroxysmal atrial tachycardia followup with [facility] 06/15/2017 Trapezius muscle strain followup with [facility] Osteopenia Annual Wellness SUBSEQUEN T visi t(> 1yr since prev. with [facility] 06/15/2017 Paroxysmal atrial tachycardia Annual Wellness SUBSE QUENT visi t(> 1yr since prev. with [facility] 06/15/2017 Routine senior citizen history and physical (65-80 yrs ) Annual Wellness SUBSEQUENT visi t(> 1yr since prev. with [facility] 06/15/2017 Paroxysmal atrial tachycardia which is stable followup with Kvng Blackwell MD 12/09/2016 Allergic rhinitis Possible sick visit with Kvng bah MD 09/11/2016 Acute sinusitis , mild followup with [facility] Paroxysmal atrial tachycardia which is well-controlled followup with [facility] 06/11/2016 Routine senior citizen history and physical (65-80 yrs ) Annual Wellness SUBSEQUENT visi t(> 1yr since prev. with [facility] 06/11/2016 Localized primary osteoarthritis of the left [...] IT band sick visit with Nancy Fox [facility] 07/09/2015 Allergic rhinitis followup with [facility] Derek [facility] 2015 Paroxysmal atrial tachycardia which is well-controlled followup with [facility] 06/04/2015 Normal routine history and physical senior citizen (65 -80) Annual Wellness SUBSEQUENT visi t(> 1yr since prev. with Nancy Derek [facility] 06/04/2015 Normal routine history and physical senior citizen (65 -80) Annual Wellness SUBSEQUENT visi t(> 1yr since prev. with Kvng Blackwell MD 11/23/2014 Sinusitis urgent visit with Izabel Hsu [facility]- 10/02/2014 Osteopenia new patient with Kvng Blackwell [...] Diagnosis: 2 sprays QD each nostril Zostavax 74898 UNT/0.65ML Suspension Reconstituted 7 Provider: Kvng Blackwell MD Diagnosis: as directed 1 unit dose SQ Calcium 600-200 MG-UNIT OR TABS 11/22/2013 Provider : Diagnosis: Multivitamins OR CAPS 11/22/2013 Provider: Diagnosis: Past Medications on file predniSONE 1MG Oral Tablet 11/24/2018 - 06/21/2019 Provider: Diagnosis: 3 tabs PO daily Metoprolol Succinate ER 50MG Oral Tablet Extended Rele ase 24 Hour 10/11/2018 - 06/21/2019 Provider: Kvng Blakcwell MD Diagnosis: 1 PO QD PredniSONE 10MG [...] tab PO daily x 4 days. Zostavax 98783 UNT/0.65ML Solution Reconstituted 12/03/2015 - 12/09/2016 Provider: Kvng Blackwell MD Diagnosis: as directed- 1 unit IM x 1 to be given at pharmacy [facility] Lotion 09/14/2015 - 06/11/2016 Provider: Nish Malik PA-C Diagnosis: Apply to affected areas BID for 10 days Metoprolol Succinate ER 50 MG Tablet Extended Release 24 Hour 08/30/2015 - 09/11/2016 Provider: Kvng Blackwell MD Diagnosis: 1 PO QD Zostavax 47928 UNT/0.65ML Solution Reconstituted 06/04/2015 - 12/03/2015 Provider: Nancy Fox RPA Diagnosis: as directed- 1 unit IM x 1 to be given at pharmacy Metoprolol Tartrate 25 MG Tablet 03/09/2015 - 08/30/2015 Pro vider: Kvng Blackwell MD Diagnosis: 1 PO BID Cefprozil 500 MG Tablet 10/02/2014 - 11/23/2014 Provider: Izabel Hsu [employer] Diagnosis: 1 tab po BID x 10 [...] 1. 78 Respiration Rate (breaths/min) 20 Note: recheck Results Includes: Results from 06/27/2019 through 06/26/2020 [facility]house [facility] Ordered by Nancy Fox RPA on 06/21/[address] [place] [address], [id number] Collected: 06/21/2020 Reported: 06/21/2020 14:25 tel : [...] test results are final unless otherwise noted. [facility] Doctor's In-house Laboratory Ordered by Nancy Fox RPA on 06/21/[address] [place] [address], [address] Collected: 06/21/2020 Reported: 06/21/2020 14:25 tel : [...] Ordered by Nancy Fox RPA on 06/21/[address] [place] [address], [facility] Collected: 06/21/2020 Reported: 06/21/2020 14:25 tel : [...] Description Last Updated Retired from work ; [employer] 12/24/2017 Under stress 10/09/2017 Psychosocial support is [...] Kvng Blackwell MD 06/26/2020 Fasting Lipid Profile 39811 Polymyalgia rheuma lee, Supraventricular tachycardia, Encntr for general adult medical exam w/o abnormal findings [facility], [facility] 06/21/2020 CMP-Complete Metabolic Profile 65915 Polymyalg ia rheumatica, Supraventricular tachycardia, Encntr for general adult medical exam w/o abnormal findings [facility], [facility] 06/21/2020 CBC 86341 Polymyalgia rheumati ca, Supraventricular tachycardia, Encntr for general adult medical exam w/o abnormal findings [facility], [facility] 06/21/2020 Venipuncture (routine) 37979 Polymyalgia rheum atica, Supraventricular tachycardia, Encntr for general adult medical exam w/o abnormal findings [facility], [facility] 06/21/2020 Surgical History Last Updated History [...] 1 12/03/2015 Left Arm Complete ( Administered) [facility] [id number] 1 11/23/2014 Left Arm Complete (Administe red) [facility] Tdap (> 7 yrs) 1 06/13/2013 [...] D iagnosis ANNUAL PE-followup Kvng Blackwell MD [facility], [facility] 06/26/2020 1:02PM 2:02PM followup vKng Blackwell MD [facility], [facility] 06/26/2020 1:02PM 2:02PM Actinic Keratosis, Skin Neop lasm Malignant Carcinoma Basal Cell, Paroxysmal Atrial Tachycardia, Polymyalgia Rheumatica, Essential Hypertension, Hypercholesterolemia Essential Annual Wellness SUBSEQUENT visi t(> 1yr since prev. Kvng Blackwell MD [facility], [facility] 06/26/2020 1:02PM 2:02PM Routine History and Physical Senior Citizen (65-80 Yrs) incident to previous visit- [facility] 12/22/2019 9:57AM 10:44AM Polymyalgia Rheu matica, Paroxysmal Atrial Tachycardia, Osteoarthritis Knee Left, Osteopenia [Patient Encounter] Kvng Blackwell MD 09/06/2019 0 06/21/2019 11:37AM 06/21/2019 11:59PM Insurance Includes: Active Insurance Policies Plan Name Member ID Group # Subscriber Relationship Effective Da jo 1 - [employer] Medicare Advantage Plan [id number] B lizette Sierra Beterril Self 04/20/2019 - Unknown Advance Directives Includes: Current Advance DirectivesNo Advance Directives Recorded Health Concerns Includes: Active Health ConcernsNo Active Health Concerns Recorded Goals Includes: Active GoalsNo Active Goals Recorded Interventions Includes: Interventions for active GoalsNo Interventions Recorded Evaluations & Outcomes Includes: Evaluations & Outcomes for active GoalsNo Outcomes Recorded
--- OUTSIDE RECORDS SUMMARY | 2021-02-17 08:23 | CCD | Continuity of Care Document ---
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 Paroxysmal supraventricular tachycardia Fazal East MD Onset: 01/01/2017 Polymyalgia rheumatica Beau Chaney MD Onset: 01/05/2018 Type 2 diabetes mellitus Virginia Gross RN, DOOR TO DOOR SALESMAN Onset: 2019 Obesity Manas Murry MD Onset: 01/11/2019 Social History Type Date Description Comments Sex Unknown ETOH Use Denies alcohol use Tobacco Use Start: Unknown Patient has never smoked Recreational Drug Use Denies Drug Use Allergies and adverse reactions Active Allergies Criticality [...] Available Procedures Date Code Description Status 01/15/2021 22325 Office/Outpatient Established Mo d MDM 30-39 Min Completed Medical Devices Description No Information Available Encounters Type Date Location Provider Dx Diagnosis Office Visit 01/15/2021 3:15p [place] [facility] Virginia Gross RN, DOOR TO DOOR SALESMAN E11.9 Type 2 diabetes mellitus without complications R94.31 Abnormal electrocardiogram [ ECG] [EKG] E66.09 Other obesity due to excess calories I47.1 Supraventricular tachycardia R00.2 Palpitations I10 Essential (primary) hyperten berenice Assessments Date Code Description Provider 01/15/2021 E11.9 Type 2 diabetes mellitus without complications Virginia Gross RN, DOOR TO DOOR SALESMAN 01/15/2021 R94.31 Abnormal electrocardiogram [ECG] [EKG] Virginia Gross RN, DOOR TO DOOR SALESMAN 01/15/2021 E66.09 Other obesity due to excess [place] peter Virginia Gross RN, DOOR TO DOOR SALESMAN 01/15/2021 I47.1 Supraventricular tachycardia Cassandra Gross RN, DOOR TO DOOR SALESMAN 01/15/2021 R00.2 Palpitations Virginia Gross RN , DOOR TO DOOR SALESMAN 01/15/2021 I10 Essential (primary) hypertension Virginia Gross RN, DOOR TO DOOR SALESMAN Plan of Treatment Future Appointment(s):* 12/24/2021 1:00 pm - [place] SUPPORT REPRESENTATIVE/Device (415) at [place] [facility] * 11/26/2021 1:00 pm - [place] [facility] ([id number]) at [place] [facility] 01/15/2021 - Virginia Gross RN, DOOR TO DOOR SALESMAN* E11.9 Type 2 diabetes mellitus without complications [...] cholesterol diet. Patient was evaluated in our [place] office and plan of care has been reviewed with Dr. Murry. Functional Status Description No Information Available Mental Status Description No Information Available Referrals Description No Information Available
--- OUTSIDE RECORDS SUMMARY | 2021-02-17 08:23 | CCD | Continuity of Care Document ---
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 Paroxysmal supraventricular tachycardia Fazal East MD Onset: 01/01/2017 Polymyalgia rheumatica Beau Chaney MD Onset: 01/05/2018 Type 2 diabetes mellitus Virginia Gross, RN, DISHWASHING MACHINE OPERATOR Onset: 2019 Obesity Manas Murry MD Onset: [...] Available Procedures Date Code Description Status 01/15/2021 99945 Office/Outpatient Established Mo d MDM 30-39 Min Completed Medical Devices Description No Information Available Encounters Type Date Location Provider Dx Diagnosis Office Visit 01/15/2021 3:15p [place] [facility] Virginia Gross RN, DISHWASHING MACHINE OPERATOR E11.9 Type 2 diabetes mellitus without complications R94.31 Abnormal electrocardiogram [ ECG] [EKG] E66.09 Other obesity due to excess calories I47.1 Supraventricular tachycardia R00.2 Palpitations I10 Essential (primary) hyperten berenice Assessments Date Code Description Provider 01/15/2021 E11.9 Type 2 diabetes mellitus without complications Virginia Gross RN, DISHWASHING MACHINE OPERATOR 01/15/2021 R94.31 Abnormal electrocardiogram [ECG] [EKG] Virginia Gross RN, EREN 01/15/2021 E66.09 Other obesity due to excess [place]eter Virginia Gross RN, DISHWASHING MACHINE OPERATOR 01/15/2021 I47.1 Supraventricular tachycardia Cassandra Gross RN, DISHWASHING MACHINE OPERATOR 01/15/2021 R00.2 Palpitations Virginia Gross RN , DISHWASHING MACHINE OPERATOR 01/15/2021 I10 Essential (primary) hypertension Virginia Gross RN, DISHWASHING MACHINE OPERATOR Plan of Treatment Future Appointment(s):* 12/24/2021 1:00 pm - [place] VICE PRESIDENT [employer]/Device (415) at [place] [facility] * 11/26/2021 1:00 pm - [place] [facility] ([id number]) at [place] [facility] 01/15/2021 - Virginia Gross RN, DISHWASHING MACHINE OPERATOR* E11.9 Type 2 diabetes mellitus without complications [...] cholesterol diet. Patient was evaluated in our [place] office and plan of care has been reviewed with Dr. Murry. Functional Status Description No Information Available Mental Status Description No Information Available Referrals Description No Information Available
--- OUTSIDE RECORDS SUMMARY | 2021-02-17 08:23 | CCD ---
Author Author [facility] Organization [facility] Address [address] [place] [address] Phone Care Team Providers Care Developer Trading Systems Name Role Phone Brenton TOBAR, Graeme Reed Unavailable Unavailable CNY, Cardiology Unavailable [phone] Rishi TOBAR, Kvng Guillen PP [phone] Recore PUBLIC SPEAKING COACH, Geri Unavailable [phone] Reason for Referral No Reason for Referral [...] in left knee 01/21/20 Virgilio Fox RPA Findings Encounter Date Education and [...] incident to previous visit- with Nancy Fox [facility] 12/08/2018 Tylenol for discomfort or fever. [...] if issues arise followup with Nancy Fox RPA 06/15/2017 Education and counseling ; Age and gende r specific counceling about preventative health discussed with the patient using USPTF and/or ACP guidelines on health maintenance and screening. Will plan to update mammogram and bone density. Also, agreeable to update screening colonoscopy. Otherwise, up to date with [facility] Annual Wellness SUBSEQUENT visi t(> 1 yr since prev. with Nancy Fox RPA 06/15/2017 Education and counseling ; patient instr [...] needed in the interim followup with Nancy Derek Ruddy [facility] 06/11/2016 Education and counseling ; Age and gende r specific counceling about preventative health discussed with the patient using USPTF and/or ACP guidelines on health maintenance and screening. Patient doing well. Mammogram and bone density q2 years and will update 05/2017. Otherwise, up to date Annual Wellness SUBSEQUENT visi t(> 1yr since prev. with Nancy Derek Ruddy [facility] 06/11/2016 Ordered treat underlying etiology With [...] breath chest pain or marked dizziness. Keep [facility] appointment. 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 Will otherwise plan to see back in 6 months for follow up with fasting labs prior. See as needed in the [facility] Education and counseling ; Age and gende r specific counceling about preventative health discussed with the patient using USPTF and/or ACP guidelines on health maintenance and screening. Refuses breast exam but agrees to update mammogram screening. Will need repeat colonoscopy next year. Otherwise up to date with health maintenance Annual Wellness SUBSEQUENT visi t(> [facility] Patient education about medication Poss ible side effects of medications discussed with good understanding. Allergies verified. Patient instructed to take all medication as directed. Warm compresses. Saline flushes. May continue OTC mucinex, BP controlled. Follow up in 7-10 days if no improvement or sooner if needed. urgent visit with Izabel Hsu [facility] 10/02/2014 Education and counseling ; Age and [...] incident to previous visit - with Nancy Reed [facility] 12/22/2019 Osteopenia incident to previous visit- with [facility] Derek [facility] 12/22/2019 Paroxysmal atrial tachycardia which is well-controlled incident to previous visit- with Nancy M [facility] 12/22/2019 Polymyalgia rheumatica which is stable incident to pre vious visit- with [facility] Derek [facility] 12/22/2019 Routine senior citizen history and [...] to previous vis it- with Nancy Fox [facility] 12/08/2018 Polymyalgia rheumatica incident to previous visit- with Elyse Fox [facility] 12/08/2018 Paroxysmal atrial tachycardia followup with Kvng bah MD 06/17/2018 Polymyalgia rheumatica which is well-controlled follow up with Kvng Blackwell MD 06/17/2018 Routine senior citizen history and physical (65-80 yrs ) Annual Wellness SUBSEQUENT visi t(> 1yr since prev. with Kvng Blackwell MD 06/17/2018 Arthralgia , suspect PMR return sick visit with Nancy kinsey [facility] 02/24/2018 Polymyalgia rheumatica which is showing no evidence of disease followup with Kvng Blackwell MD 12/22/2017 Nephrolithiasis of the left kidney which is resolved s ick visit with Nancy Fox [facility] 08/24/2017 Chronic rhinitis sick visit with Kvng Hopkins 08/11/2017 Polymyalgia rheumatica Probable based o n symptomatology and response to prednisone. We'll get sedimentation rate and then give patient a call on treatment plan sick visit with Kvng Blackwell MD 08/11/2017 Allergic rhinitis urgent visit with Nish Malik PA-C 2017 Osteopenia followup with Nancy Fox [facility] 2017 Paroxysmal atrial tachycardia followup with aNncy Fox [facility] 06/15/2017 Trapezius muscle strain followup with Nancy Fox [facility] Osteopenia Annual Wellness SUBSEQUEN T visi t(> 1yr since prev. with Nancy M Fox RPA 06/15/2017 Paroxysmal atrial tachycardia Annual Wellness SUBSE QUENT visi t(> 1yr since prev. with Nancy Fox [facility] 06/15/2017 Routine senior citizen history and physical (65-80 yrs ) Annual Wellness SUBSEQUENT visi t(> 1yr since prev. with Nancy [facility] 06/15/2017 Paroxysmal atrial tachycardia which is stable followup with Kvng Blackwell MD 12/09/2016 Allergic rhinitis Possible sick visit with Kvng bah MD 09/11/2016 Acute sinusitis , mild followup with [facility] Paroxysmal atrial tachycardia which is well-controlled followup with [facility] 06/11/2016 Routine senior citizen history and physical (65-80 yrs ) Annual Wellness SUBSEQUENT visi t(> 1yr since prev. with [facility] 06/11/2016 Localized primary osteoarthritis of [...] of thigh/ IT band sick visit with [facility] 07/09/2015 Allergic rhinitis followup with [facility] 2015 Paroxysmal atrial tachycardia which is well-controlled followup with [facility] 06/04/2015 Normal routine history and physical senior citizen (65 -80) Annual Wellness SUBSEQUENT visi t(> 1yr since prev. with [facility] 06/04/2015 Normal routine history and physical senior citizen (65 -80) Annual Wellness SUBSEQUENT visi t(> 1yr since prev. with Kvng Blackwell MD 11/23/2014 Sinusitis urgent visit with Izabel Hsu [facility] 10/02/2014 Osteopenia new patient with Kvng Blackwell [...] Diagnosis: 2 sprays QD each nostril Zostavax 51279 UNT/0.65ML Suspension Reconstituted 7 Provider: Kvng Blackwell [...] tab PO daily x 4 days. Zostavax 42833 UNT/0.65ML Solution Reconstituted 12/03/2015 - 12/09/2016 Provider: Knvg Blackwell MD Diagnosis: as directed- 1 unit IM x 1 to be given at pharmacy Calamine Lotion 09/14/2015 - 06/11/2016 Provider: Nish Malik PA-C Diagnosis: Apply to affected areas BID for 10 days Metoprolol Succinate ER 50 MG Tablet Extended Release 24 Hour 08/30/2015 - 09/11/2016 Provider: Kvng Blackwell MD Diagnosis: 1 PO QD Zostavax 73493 UNT/0.65ML Solution Reconstituted 06/04/2015 - 12/03/2015 Provider: Nancy Fox RPA Diagnosis: as directed- 1 unit IM x 1 to be given at pharmacy Metoprolol Tartrate 25 MG Tablet 03/09/2015 - 08/30/2015 Pro vider: Kvng Blackwell MD Diagnosis: 1 PO BID Cefprozil 500 MG Tablet 10/02/2014 - 11/23/2014 Provider: Izabel Hsu [facility] Diagnosis: 1 tab po BID x 10 days. Metoprolol Tartrate 25 MG OR TABS 09/29/2013 - 11/23/2014 Pr ovider: Diagnosis: Medications Administered Includes: Administered Medications in patient's chartNo Administered Medications Recorded Vital Signs Includes: Vital Signs from 06/27/2019 through 06/26/2020 Vital Name 06/26/2020 01:30P 06/26/2020 01:29P 06/26/2020 01:28P 12/22/2019 10:02A Blood Pressure Sitting (mmHg) 169/80 169/80 169/80 134/78 Pulse Rate-Sitting (bpm) 68 68 68 56 Height (in) 60.75 60.75 60.75 60.75 Weight (lb) 185 185 185 175 Body Mass Index (kg/m2) 35.2 35.2 35.2 33.3 Body Surface Area (m2) 1.82 1.82 1.82 1.78 Respiration Rate (breaths/min) 20 Results Includes: Results from 06/27/2019 through 06/26/2020 CBC Doctor's In-house Laboratory Ordered by Nancy Fox RPA on 06/21/[address] [place] [address], [address] Collected: 06/21/2020 Reported: 06/21/2020 14:25 tel :[phone] ext. 1500 GRAN# 3.3 /mm3 (2.5-7.5) None [...] test results are final unless otherwise noted. CMP Doctor's In-house Laboratory Ordered by Nancy Fox RPA on 06/21/2020 [address] [place], [address] Collected: 06/21/2020 Reported: 06/21/2020 14:25 tel :[phone] ext. [phone] Albumin 4.2 g/dl (3.4-5.0) None [...] by Nancy Fox RPA on 06/21/2020 [address] [place], [address] Collected: 06/21/2020 Reported: 06/21/2020 14:25 tel :[phone] ext. [phone] Cholesterol 234 mg/dl (135-200) H (High) Note: Responsible Observer: KM Dir. LDL 126 mg/dl (50-150) None Note: Responsible Observer: KOJO HDL 59 mg/dl (35-55) H (High) Note: Responsible Observer: KOJO Triglycerides 145 mg/dl (40-150) None Note: Responsible Observer: KOJO Reviewed by Nancy Fox RPA on 06/21; All test results are final unless otherwise noted. 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 Under stress 10/09/2017 Psychosocial support is [...] Kvng Blackwell MD 06/26/2020 Fasting Lipid Profile 23403 Polymyalgia rheuma lee, Supraventricular tachycardia, Encntr for general adult medical exam w/o abnormal findings Nancy Fox [facility], [facility] 06/21/2020 CMP-Complete Metabolic Profile 66173 Polymyalg ia rheumatica, Supraventricular tachycardia, Encntr for general adult medical exam w/o abnormal findings Nancy Fox [facility], [facility] 06/21/2020 CBC 96306 Polymyalgia rheumati ca, Supraventricular tachycardia, Encntr for general adult medical exam w/o abnormal findings Nancy Fox [facility], [facility] 06/21/2020 Venipuncture (routine) 60733 Polymyalgia rheum atica, Supraventricular tachycardia, Encntr for general adult medical exam w/o abnormal findings Nancy Fox [facility], [facility] 06/21/2020 Surgical History Last Updated History [...] 1 12/03/2015 Left Arm Complete ( Administered) [facility] [id number] 1 11/23/2014 Left Arm Complete (Administe red) [facility] Tdap (> 7 yrs) 1 [...] D iagnosis ANNUAL PE-followup Kvng Blackwell MD [facility], [facility] 06/26/2020 1:02PM 12/22/2019 11:59PM followup Kvng Blackwell MD [facility], [facility] 06/26/2020 1:02PM 12/22/2019 11:59PM Annual Wellness SUBSEQUENT visi t(> 1yr since prev. Kvng Blackwell MD [facility], [facility] 06/26/2020 1:02PM 12/22/19 20 11:59PM Routine History and Physical Senior Citizen (65-80 Yrs) incident to previous visit- Nancy Fox RPA [facility], [facility] 12/22/2019 9:57AM 10:44AM Polymyalgia Rheu matica, Paroxysmal Atrial Tachycardia, Osteoarthritis Knee Left, Osteopenia [Patient Encounter] Kvng Blackwell MD 09/06/2019 0 06/21/2019 11:37AM 06/21/2019 11:59PM Insurance Includes: Active Insurance Policies Plan Name Member ID Group # Subscriber Relationship Effective Da jo 1 - [employer] Medicare Advantage Plan [id number] B lizette Esquivel Beutel Self 04/20/2019 - Unknown Advance Directives Includes: Current Advance DirectivesNo Advance Directives Recorded Health Concerns Includes: Active Health ConcernsNo Active Health Concerns Recorded Goals Includes: Active GoalsNo Active Goals Recorded Interventions Includes: Interventions for active GoalsNo Interventions Recorded Evaluations & Outcomes Includes: Evaluations & Outcomes for active GoalsNo Outcomes Recorded
--- OUTSIDE RECORDS SUMMARY | 2021-02-17 08:23 | CCD ---
Author Author [facility] Organization [facility] Address [address] [place] [address] Phone Care Team Providers Care Case Preparer And Liner Name Role Phone Brenton TOBAR, Graeme Reed Unavailable Unavailable CNY, Cardiology Unavailable [phone] Rishi TOBAR, Kvng Guillen PP [phone] Recore PROFESSOR OF SPORT MANAGEMENT, Geri Unavailable [phone] Reason for Referral No Reason for Referral [...] left knee 01/21/20 Virgilio Fox RPA Referral Ironer Sock Basal cell carcinoma of skin, unspecifie d 09/24/20 Kvng Blackwell MD Future Appointments Date Time Location Provider COVID Vaccine 07/12/2020 1:30PM [facility] Jojo Blackwell MD incident to previous visit- 01/10/2021 1:40PM [facility] Jojo Fox RPA Findings Encounter Date [...] incident to previous visit- with Nancy Fox [facility] 12/08/2018 Tylenol for discomfort or [...] if issues arise followup with Nancy Fox [facility] 06/15/2017 Education and counseling ; Age and gende r specific counceling about preventative health discussed with the patient using USPTF and/or ACP guidelines on health maintenance and screening. Will plan to update mammogram and bone density. Also, agreeable to update screening colonoscopy. Otherwise, up to date with health maintenance Annual Wellness SUBSEQUENT visi t(> 1 yr since prev. with Nancy Fox [facility] 06/15/2017 Education and counseling ; [...] in the interim followup with Nancy Fox [facility] 06/11/2016 Education and counseling ; Age and gende r specific counceling about preventative health discussed with the patient using USPTF and/or ACP guidelines on health maintenance and screening. Patient doing well. Mammogram and bone density q2 years and will update 05/2017. Otherwise, up to date Annual Wellness SUBSEQUENT visi t(> 1yr since prev. with Nancy Fox [facility] 06/11/2016 Ordered treat underlying etiology [...] Keep November appointment. 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 Will otherwise [...] next year. Otherwise up to date with [facility] Annual Wellness SUBSEQUENT visi t(> 1 [...] if needed. urgent visit with Izabel Hsu [facility] 10/02/2014 Education and counseling ; Age and gende r specific counceling on preventative health discussed with the patient using USPTF and/or ACP guidlines on health maintenance and screening. Currently up to date with [facility] screening. Will plan to follow up yearly [...] to previous visit - with Nancy M [facility] 12/22/2019 Osteopenia incident to previous visit- with Nancy M Fox RPA 12/22/2019 Paroxysmal atrial tachycardia which is well-controlled incident to previous visit- with Nancy M [facility] 12/22/2019 Polymyalgia rheumatica which is stable incident to pre vious visit- with Nancy M Fox RPA 12/22/2019 Routine senior citizen history and physical (65-80 yrs ) ANNUAL PE-followup with Kvng Blackwell MD 06/21/2019 Asymptomatic (natural) menopause followup with Kvng Blackwell MD 06/21/2019 Essential hypertension Borderline contr ol which will likely improve when she stops Aleve which I recommended followup with Kvng Blackewll MD 06/21/2019 Paroxysmal atrial tachycardia Well controlled [...] PMR return sick visit with Nancy Carrillo [facility] 02/24/2018 Polymyalgia rheumatica which is showing no evidence of disease followup with Kvng Blackwell MD 12/22/2017 Nephrolithiasis of the left kidney which is resolved s [facility] Chronic rhinitis sick visit with Kvng Hopkins 08/11/2017 Polymyalgia rheumatica Probable based o n symptomatology and response to prednisone. We'll get sedimentation rate and then give patient a call on treatment plan sick visit with Kvng Blackwell MD 08/11/2017 Allergic rhinitis urgent visit with Nish Malik PA-C 2017 Osteopenia followup with [facility] 2017 Paroxysmal atrial tachycardia followup with [facility] 06/15/2017 Trapezius muscle strain followup with [facility] Osteopenia Annual Wellness SUBSEQUEN T visi t(> 1yr since prev. with [facility] 06/15/2017 Paroxysmal atrial tachycardia Annual Wellness SUBSE QUENT visi t(> 1yr since prev. with [facility] 06/15/2017 Routine senior citizen history and physical (65-80 yrs ) Annual Wellness SUBSEQUENT visi t(> 1yr since prev. with [facility] 06/15/2017 Paroxysmal atrial tachycardia which is stable followup with Kvng Blackwell MD 12/09/2016 Allergic rhinitis Possible sick visit with Kvng bah MD 09/11/2016 Acute sinusitis , mild followup with [facility] Paroxysmal atrial tachycardia which is well-controlled followup with [facility] 06/11/2016 Routine senior citizen history and physical (65-80 yrs ) Annual Wellness SUBSEQUENT visi t(> 1yr since prev. with [facility] 06/11/2016 Localized primary osteoarthritis of the [...] IT band sick visit with Nancy Fox [facility] 07/09/2015 Allergic rhinitis followup with Nancy [facility] 2015 Paroxysmal atrial tachycardia which is well-controlled followup with [facility] 06/04/2015 Normal routine history and physical senior citizen (65 -80) Annual Wellness SUBSEQUENT visi t(> [facility]yr [facility] Normal routine history and physical senior citizen (65 -80) Annual Wellness SUBSEQUENT visi t(> 1yr since prev. with Kvng Blackwell MD 11/23/2014 Sinusitis urgent visit with Izabel Hsu [facility]- 10/02/2014 Osteopenia new patient with Kvng [...] Diagnosis: 2 sprays QD each nostril Zostavax 59547 UNT/0.65ML Suspension Reconstituted 7 Provider: Kvng Blackwell [...] tab PO daily x 4 days. Zostavax 95369 UNT/0.65ML Solution Reconstituted 12/03/2015 - 12/09/2016 Provider: Kvng Blackwell MD Diagnosis: as directed- 1 unit IM x 1 to be given at pharmacy Calamine Lotion 09/14/2015 - 06/11/2016 Provider: Nish Malik PA-C Diagnosis: Apply to affected areas BID for 10 days Metoprolol Succinate ER 50 MG Tablet Extended Release 24 Hour 08/30/2015 - 09/11/2016 Provider: Kvng Blackwell MD Diagnosis: 1 PO QD Zostavax 88992 UNT/0.65ML Solution Reconstituted 06/04/2015 - 12/03/2015 Provider: Nancy Fox RPA Diagnosis: as directed- 1 unit IM x 1 to be given at pharmacy Metoprolol Tartrate 25 MG Tablet 03/09/2015 - 08/30/2015 Pro vider: Kvng Blackwell MD Diagnosis: 1 PO BID Cefprozil 500 MG Tablet 10/02/2014 - 11/23/2014 Provider: Izabel Hsu STUCCO PLASTERER-BC Diagnosis: 1 tab po BID x 10 days. Metoprolol Tartrate 25 MG OR TABS 09/29/2013 - 11/23/2014 Pr ovider: Diagnosis: Medications Administered Includes: Administered Medications in patient's chartNo Administered Medications Recorded Vital Signs Includes: Vital Signs from 07/11/2019 through 07/10/2020 Vital Name 07/10/2020 02:08P 07/10/2020 01:45P 06/26/2020 [...] Rate (breaths/min) 20 Results Includes: Results from 07/11/2019 through 07/10/2020 CBC Doctor's In-house Laboratory Ordered by Nancy Fox RPA on 06/21/2020 [address] [place], [address] Collected: 06/21/2020 Reported: 06/21/2020 14:25 tel :[phone] ext. 1500 GRAN# 3.3 /mm3 (2.5-7.5) None [...] test results are final unless otherwise noted. [facility] Doctor's In-house Laboratory Ordered by Nancy Fox RPA on 06/21/2020 [address] [place], [address] Collected: 06/21/2020 Reported: 06/21/2020 14:25 tel :[phone] ext. [phone] Albumin 4.2 g/dl (3.4-5.0) None [...] Ordered by Nancy Fox RPA on 06/21/[address] [place] [address], [address] Collected: 06/21/2020 Reported: 06/21/2020 14:25 tel :[phone] ext. 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 (Distinct Se[facility] rate service-same day) G0444 Encntr for general adult medical exam w/ o abnormal findings, Encounter for screening for other disorder Kvng Blackwell MD [facility], [facility] 06/26/2020 - subseq't annual wellness exam(1 yr after Initial) G0439 Encntr for general adult medical exam w/o abnormal findings Kvng Blackwell MD [facility], [facility] 06/26/2020 Fasting Lipid Profile 58554 Polymyalgia rheuma lee, Supraventricular tachycardia, Encntr for general adult medical exam w/o abnormal findings [facility] 06/21/2020 CMP-Complete Metabolic Profile 83334 Polymyalg ia rheumatica, Supraventricular tachycardia, Encntr for general adult medical exam w/o abnormal findings [facility] 06/21/2020 CBC 48809 Polymyalgia rheumati ca, Supraventricular tachycardia, Encntr for general adult medical exam w/o abnormal findings Nancy Reed [facility], [facility] 06/21/2020 Venipuncture (routine) 45710 Polymyalgia rheum atica, Supraventricular tachycardia, Encntr for general adult medical exam w/o abnormal findings Nancy Reed [facility], [facility] 06/21/2020 Surgical History Last Updated History [...] 1 12/03/2015 Left Arm Complete ( Administered) [facility] [id number] 1 11/23/2014 Left Arm Complete (Administe red) [facility] Tdap (> 7 yrs) 1 [...] - 12:00AM Active Encounters Includes: Encounters from 07/11/2019 through 07/10/2020 Encounter Provider Location Date Check-In Time Check-Out Time D iagnosis Ambulatory Procedure Kvng Blackwell MD [facility], [facility] 07/10/2020 1:31PM 06/26/2020 11:59PM Skin Neoplasm Malign ant Carcinoma Basal Cell ANNUAL PE-followup exam/30 Kvng Blackwell MD [facility], [facility] 06/26/2020 1:02PM 2:02PM Routine History and Physical Senior Citizen (65-80 Yrs) followup Kvng Blackwell MD [facility], [facility] 06/26/2020 1:02PM 2:02PM Actinic Keratosis, Skin Neop lasm Malignant Carcinoma Basal Cell, Paroxysmal Atrial Tachycardia, Polymyalgia Rheumatica, Essential Hypertension, Hypercholesterolemia Essential Annual Wellness SUBSEQUENT visi t(> 1yr since prev. Kvng Blackwell MD [facility], [facility] 06/26/2020 1:02PM 2:02PM Routine History and Physical Senior Citizen (65-80 Yrs) incident to previous visit- Nancy Fox RPA [facility], [facility] 12/22/2019 9:57AM 10:44AM Polymyalgia Rheu matica, Paroxysmal Atrial Tachycardia, Osteoarthritis Knee Left, Osteopenia [Patient Encounter] Kvng Blackwell MD 09/06/2019 0 06/21/2019 11:37AM 06/21/2019 11:59PM Insurance Includes: Active Insurance Policies Plan Name Member ID Group # Subscriber Relationship Effective Da jo 1 - [employer] Medicare Advantage Plan [id number] B lizette L Beutel Self 04/20/2019 - Unknown Advance Directives Includes: Current Advance DirectivesNo Advance Directives Recorded Health Concerns Includes: Active Health ConcernsNo Active Health Concerns Recorded Goals Includes: Active GoalsNo Active Goals Recorded Interventions Includes: Interventions for active GoalsNo Interventions Recorded Evaluations & Outcomes Includes: Evaluations & Outcomes for active GoalsNo Outcomes Recorded
--- OUTSIDE RECORDS SUMMARY | 2021-02-17 08:24 | CCD ---
Author Author [facility] [employer] [facility] [employer] Organization [facility] [employer] Address Unknown Phone Unavailable Care Team Providers Care Facility Supervisor Name Role Phone Farhad, Ana Unavailable PROBLEMS Type Condition ICD9-CM Code [id number] Code Onset Dates Condition S tatus W/U Status Risk SNOMED Code Notes Problem Primary osteoarthritis involving multiple joints M 15.0 Active confirmed 887122487 Problem PMR (polymyalgia rheumatica) M35.3 Active confirme d 86355649 Problem Ureteral stone with hydronephrosis N13.2 Activ e confirmed 765008621 Problem 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 C44.1 11 Active confirmed 626262274 Problem SYED positive R76.8 Active confirmed 9504743 01 Problem 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 Active confirmed 345443380 Problem Primary osteoarthritis, 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 Active confirmed 778202942969144 Problem Primary osteoarthritis, right hand M19.041 Activ e confirmed 78241484 Problem Primary osteoarthritis of both knees M17.0 Act roxanne confirmed 336436585 Problem 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 Active confirmed [id number] ALLERGIES Allergen (clinical drug ingredient) Drug/Non Drug Allergy do cumented on EMR Reaction Allergy Type Onset Date Status Eggs Unknown Non Drug Allergy Active Cefzil Unknown Drug Allergy Active Penicillin (For Allergies Use Only) Unknown Drug Allerg y Active doxycycline Doxycycline([facility] Code:[address]-84) Unknown Drug Aller gy Active ENCOUNTERS from 1940 to 2020-12-27 Encounter Location Date Provider Diagnosis [facility] Rheumatology [address] [place] [address] [place] [address] Dec, Ana Llamas PMR (polymyalgia rheumatica) M35.3 ; Primary osteoarthritis of both knees M17.0 and senior living 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 Z79.52 IMMUNIZATIONS Vaccine Route Administration Date Status Moderna #1 dose COVID-19(given elsewhere) SARSCOV2 VAC 100MC G/0.5ML IM Unknown July 12, 2020 Administered Moderna #2 dose COVID-19(given elsewhere) SARSCOV2 VAC 100MC G/0.5ML IM Unknown August 12, 2020 Administered SOCIAL HISTORY Tobacco Use: Social History Observation Description Date Details (start date - stop date) Never Smoker Sex Assigned At : Social History Observation Description Sex Assigned At Unknown Alcohol Screening: Question Answer Notes Did you have a drink containing alcohol in the past year? No Points 0 Interpretation Negative Tobacco Use: Question Answer Notes Are you a: never smoker REASON FOR REFERRAL No Information VITAL SIGNS Weight 181.2 lbs Dec, Weight-kg 82.19 kg Dec, Height 60 in Dec, BMI 35.38 kg/m2 Dec, Heart Rate 74 /min Dec, Respiratory Rate 18 /min Dec, Temperature 97.1 degrees Fahrenheit Dec, Oximetry 96% Dec, Blood pressure systolic 124 mm Hg Dec, Blood pressure diastolic 68 mm Hg Dec, MEDICATIONS Medication SIG (Take, Route, Frequency, Duration) Notes Start Da te End Date Status Vitamin D3 25 MCG (1000 UT) 1 capsule Orally Once a day Active Fluorouracil 5 % External for 30 No t-Taking Nitrofurantoin Monohyd Macro 100 MG 1 capsule at bedti me with food Orally Once a day for 30 day(s) FINISHED Not-Taking Metoprolol Succinate ER 50 MG TAKE ONE TABLET BY MOUTH EVERY DAY Oral for 90 Active predniSONE 1 MG 3 tabs daily Orally as directed for 30 d ays 12/26/20: patient taking 2 mg daily Active Glucosamine Chond Complex/MSM - as directed Orally Not-Taking Magnesium 250 MG 1 tablet with a meal Orally Once a day for 30 day(s) Not-Taking Multi Vitamin - 1 tablet Orally Once a day for 30 day(s) Active Calcium 600 MG 1 tablet with meals Orally Once a day Active Vitamin B12 1/2 tablet Orally Once a day Active PROCEDURES No Information RESULTS Component Value Reference Range CBC with Differential Reviewed date:12/27/2020 14:13:28 Interpretation: Performing Lab:[facility] [address] [address] , ,[place] [address] WHITE BLOOD COUNT 5.4 4.0-10.0 RED BLOOD COUNT 4.38 4.00-5.40 HEMOGLOBIN 13.5 12.0-15.5 HEMATOCRIT 43.1 36.0-47.0 MEAN CORPUSCULAR VOLUME 98.4 80.0-96.0 MEAN CORPUSCULAR HEMOGLOBIN 30.8 27.0-33.0 MEAN CORPUSCULAR HGB CONC 31.3 32.0-36.5 RED CELL DISTRIBUTION WIDTH 12.4 11.5-14.5 PLATELET COUNT, AUTOMATED 220 150-450 NEUTROPHILS % 45.0 36.0-66.0 LYMPH % 32.5 24.0-44.0 MONO % 16.6 2.0-8.0 EOS % 4.2 0.0-3.0 BASO % 1.1 0.0-1.0 NEUTROPHILS # 2.4 1.5-8.5 LYMPH # 1.8 1.5-5.0 MONO # 0.9 0.0-0.8 EOS # 0.2 0.0-0.5 BASO # 0.1 0.0-0.2 Comprehensive Metabolic Profile (CMP) Reviewed date:12/27/2020 14:13:28 Interpretation: Performing Lab:[facility] [address] [address] , ,[place] [address] GLUCOSE, FASTING 112 70-100 BLOOD UREA NITROGEN 17 7-18 CREATININE FOR GFR 0.88 0.55-1.30 GLOMERULAR FILTRATION RATE > 60.0 >39 SODIUM LEVEL 141 136-145 POTASSIUM SERUM 4.3 3.5-5.1 CHLORIDE LEVEL 105 98-107 CARBON DIOXIDE LEVEL 30 21-32 CALCIUM LEVEL 9.0 8.8-10.2 AST/SGOT 15 7-37 ALT/SGPT 21 12-78 ALKALINE PHOSPHATASE 62 45-117 BILIRUBIN,TOTAL 0.4 0.2-1.0 TOTAL PROTEIN 6.6 6.4-8.2 ALBUMIN 3.6 3.2-5.2 ALBUMIN/GLOBULIN RATIO 1.2 1.2-2.2 C REACTIVE PROTEIN QUANTITATIV (At [facility]) Reviewed date:12/27/2020 14:13:28 Interpretation: Performing Lab:[facility] LAB[facility] [address] [address] , ,[place] [address] C REACTIVE PROTEIN QUANTITATIV 0.67 0.00-0.30 ERYTHROCYTE SEDIMENTATION RATE Reviewed date:12/27/2020 14:13:28 Interpretation: Performing Lab:[facility], [facility] [address] [address] , ,[facility] ERYTHROCYTE SEDIMENTATION RATE 7 0-30 REASON FOR VISIT Patient is here for a follow up appointment. No new complaints or concerns noted . MEDICAL (GENERAL) HISTORY Type Description Date Medical History hypertension Medical History polymyalgia rheumatica Medical History KIDNEY STONES Surgical History appendectomy Surgical History hysterectomy Surgical History tonsillectomy Surgical History CATRACT REMOVED FROM RIGHT EYE Surgical History Biopsy in nose by Dr. Toussaint 08/23/20 Goals Section No Information Health Concerns No Information MEDICAL EQUIPMENT No Information MENTAL STATUS No Information FUNCTIONAL STATUS No Information ASSESSMENTS Encounter Date Diagnosis Assessment Notes Treatment Notes Treatm ent Clinical Notes Dec, PMR (polymyalgia rheumatica) (ICD-10 - M35.3) stable no signs of PMR or GCA flare today continue prednisone 2 mg daily for now labs tomorrow , if stable will taper slowly to 1.5 mg daily then repeat labs in a month , if stable will decrease to 1 mg daily return in 8 weeks Dec, Primary osteoarthritis of both knees (ICD-10 - M 17.0) yanet and julee nodes conisder xrays to eval for erosive OA if it bothers her in the future continue knee braces regularly defers [place] steroids at this time encouraged regualr exercise and weight loss- good improvement with decreased weight of about 6 lb since last visit Dec, 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 (ICD-10 - Z79.52 ) recent DEXA scan with osteopenia normal vitamin D 08/08 continue calcium 1200 and vitamin D 1000 daily edema unclear why unlikely secondary to steroids since she is only on a low dose now continue slow taper Dec, Other PATIENT INSTRUCTIONS : Continue prednisone 2 mg daily for now labs tomorrow , if stable will call you to taper slowly to Prednisone 1.5 mg daily then repeat labs in a month , if stable we will call you to decrease to Prednisone 1 mg daily return in 8 weeks More than 50% of the 32 minute visit was spent in patient education, counseling, and coordination of care. I reviewed her symptoms, imaging findings, laboratory results, physical findings, and treatment to date. I have answered patient's questions, and they stated satisfaction regarding the treatment plan and recommendations. PLAN OF TREATMENT Treatment Notes Assessment Notes Clinical Notes PMR (polymyalgia rheumatica) stableno si gns of PMR or GCA flare todaycontinue prednisone 2 mg daily for nowlabs tomorrow , if stable will taper slowly to 1.5 mg dailythen repeat labs in a month , if stable will decrease to 1 mg dailyreturn in 8 weeks Primary osteoarthritis of both knees her bedens and bouchards nodesconisder xrays to eval for erosive OA if it bothers her in the futurecontinue knee braces regularlydefers [place] steroids at this timeencouraged regualr exercise and weight l oss- good improvement with decreased weight of about 6 lb since last visit 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 recent D EXA scan with osteopenianormal vitamin D 08/08continue calcium 1200 and vitamin D 1000 dailyedema unclear why unlikely secondary to steroids since she is only on a low dose nowcontinue slow taper Future Test Test Name Order Date CBC with Differential [id number] Comprehensive Metabolic Profile (CMP) [id number] ERYTHROCYTE SEDIMENTATION RATE [id number] C REACTIVE PROTEIN QUANTITATIV (At [facility] Lab) [id number] Next Appt Details 2 Months Reason:f/u PMR Provider Name:Ana Llamas, 02:15:00 PM, [address] [place] [address], , [place], [place], [facility], Follow Up:2 Monthsf/u PMR Insurance Providers Payer Name Payer Address Payer Phone Insured Name Patient Relati onship to Insured Coverage Start Date Coverage End Date MEDICARE COMPLETE [facility] [address] [facility] [id number] [place]
--- OUTSIDE RECORDS SUMMARY | 2021-02-17 08:24 | CCD ---
Author Author [facility] Organization [facility] Address Unknown Phone Unavailable Care Team Providers Care Information Technology Specialist Name Role Phone Hamo, M [place] RESIDENTIAL CAREGIVER Unavailable Unavailable Hamo, M [place] RESIDENTIAL CAREGIVER Unavailable Unavailable Hamo, M [place] RESIDENTIAL CAREGIVER Unavailable Unavailable Hamo, M [place] RESIDENTIAL CAREGIVER Unavailable Unavailable Hamo, M [place] RESIDENTIAL CAREGIVER Unavailable Unavailable Hamo, M [place] RESIDENTIAL CAREGIVER Unavailable Unavailable Hamo, M [place] RESIDENTIAL CAREGIVER Unavailable Unavailable Hamo, M [place] RESIDENTIAL CAREGIVER Unavailable Unavailable Hamo, M [place] RESIDENTIAL CAREGIVER Unavailable Unavailable Hamo, M [place] RESIDENTIAL CAREGIVER Unavailable Unavailable Hamo, M [place] RESIDENTIAL CAREGIVER Unavailable Unavailable Hamo, M [place] RESIDENTIAL CAREGIVER Unavailable Unavailable Hamo, M [place] RESIDENTIAL CAREGIVER Unavailable Unavailable Hamo, M [place] RESIDENTIAL CAREGIVER Unavailable Unavailable Hamo, M [place] RESIDENTIAL CAREGIVER Unavailable Unavailable Hamo, M [place] RESIDENTIAL CAREGIVER Unavailable Unavailable Hamo, M [place] RESIDENTIAL CAREGIVER Unavailable Unavailable Hamo, M [place] RESIDENTIAL CAREGIVER Unavailable Unavailable Hamo, M [place] RESIDENTIAL CAREGIVER Unavailable Unavailable Fox, Nancy PA Unavailable Unavailable Fox, Nancy PA Unavailable Unavailable Fox, Nancy PA Unavailable Unavailable Fox, Nancy PA Unavailable Unavailable Ofx, Nancy PA Unavailable Unavailable Fox, Nancy PA Unavailable Unavailable Fox, Nancy PA Unavailable Unavailable Fox, Nancy PA Unavailable Unavailable Fox, Nancy PA Unavailable Unavailable Fox, Nancy PA Unavailable Unavailable Fox, Nancy PA Unavailable Unavailable Fox, Nancy PA Unavailable Unavailable Fox, Nancy PA Unavailable Unavailable Fox, Nancy PA Unavailable Unavailable Fox, Nancy PA Unavailable Unavailable Fox, Nancy PA Unavailable Unavailable Fox, Nancy PA Unavailable Unavailable Fox, Nancy PA Unavailable Unavailable Fox, Nancy PA Unavailable Unavailable Fox, Nancy PA Unavailable Unavailable Fox, Nancy PA Unavailable Unavailable Fox, Nancy PA Unavailable Unavailable Fox, Nancy PA Unavailable Unavailable Fox, Nancy PA Unavailable Unavailable Fox, Nancy PA Unavailable Unavailable Fox, Nancy PA Unavailable Unavailable Fox, Nancy PA Unavailable Unavailable Fox, Nancy PA Unavailable Unavailable Fox, Nancy PA Unavailable Unavailable Fox, Nancy PA Unavailable Unavailable Fox, Nancy PA Unavailable Unavailable Fox, Nancy PA Unavailable Unavailable Fox, Nancy PA Unavailable Unavailable Fox, Nancy PA Unavailable Unavailable Fox, Nancy PA Unavailable Unavailable Fox, Nancy PA Unavailable Unavailable Fox, Nancy PA Unavailable Unavailable Fox, Nancy PA Unavailable Unavailable Fox, Nancy PA Unavailable Unavailable Fox, Nancy PA Unavailable Unavailable Fox, Nancy PA Unavailable Unavailable Sierra Blackwell MD Unavailable Unavailable Sierra Blackwell MD Unavailable Unavailable Sierra Blackwell MD Unavailable Unavailable iSerra Blackwell MD Unavailable Unavailable Sierra Blackwell MD Unavailable Unavailable Sierra Blackwell MD Unavailable Unavailable Sierra Blackwell MD Unavailable Unavailable Sierra Blackwell MD Unavailable Unavailable Sierra Blackwell MD Unavailable Unavailable Sierra Blackwell MD Unavailable Unavailable Sierra Blackwell MD Unavailable Unavailable Sierra Blackwell MD Unavailable Unavailable Sierra Blackwell MD Unavailable Unavailable Sierra Blackwell MD Unavailable Unavailable Sierra Blackwell MD Unavailable Unavailable Sierra Blackwell MD Unavailable Unavailable Sierra Blackwell MD Unavailable Unavailable Sierra Blackwell MD Unavailable Unavailable Sierra Blackwell MD Unavailable Unavailable Sierra Blackwell MD Unavailable Unavailable Sierra Blackwell MD Unavailable Unavailable Sierra Blackwell MD Unavailable Unavailable Sierra Blackwell MD Unavailable Unavailable Sierra Blackwell MD Unavailable Unavailable Sierra Blackwell MD Unavailable Unavailable Sierra Blackwell MD Unavailable Unavailable Sierra Blackwell MD Unavailable Unavailable Sierra Blackwell MD Unavailable Unavailable LyndaSierra kearney MD Unavailable Unavailable LyndakerSierra MD Unavailable Unavailable LyndaSierra kearney MD Unavailable Unavailable LyndakerSierra MD Unavailable Unavailable LyndakerSierra MD Unavailable Unavailable LyndakerSierra MD Unavailable Unavailable LyndaSierra kearney MD Unavailable Unavailable LyndaSierra kearney MD Unavailable Unavailable LyndaSierra kearney MD Unavailable Unavailable LyndaSierra kearney MD Unavailable Unavailable LyndakerSierra MD Unavailable Unavailable LyndakerSierra MD Unavailable Unavailable LyndaSierra kearney MD Unavailable Unavailable LyndaSierra kearney MD Unavailable Unavailable LyndaSierra kearney MD Unavailable Unavailable LyndaSierra kearney MD Unavailable Unavailable LyndaSierra kearney MD Unavailable Unavailable LyndaSierra kearney MD Unavailable Unavailable LyndaSierra kearney MD Unavailable Unavailable LyndaSierra kearney MD Unavailable Unavailable LyndaSierra kearney MD Unavailable Unavailable LyndaSierra kearney MD Unavailable Unavailable LyndaSierra kearney MD Unavailable Unavailable LyndaSierra kearney MD Unavailable Unavailable LyndaSierra kearney MD Unavailable Unavailable LyndaSierra kearney MD Unavailable Unavailable LyndaSierra kearney MD Unavailable Unavailable LyndaSierra kearney MD Unavailable Unavailable LyndaSierra kearney MD Unavailable Unavailable LyndaSierra kearney MD Unavailable Unavailable LyndaSierra kearney MD Unavailable Unavailable LyndaSierra kearney MD Unavailable Unavailable LyndaSierra kearney MD Unavailable Unavailable LynSierra arguelles MD Unavailable Unavailable LynSierra arguelles MD Unavailable Unavailable LyndaSierra kearney MD Unavailable Unavailable LyndaSierra kearney MD Unavailable Unavailable LyndaSierra kearney MD Unavailable Unavailable LyndaSierra kearney MD Unavailable Unavailable LynSierra arguelles MD Unavailable Unavailable LynSierra arguelles MD Unavailable Unavailable LyndaSierra kearney MD Unavailable Unavailable LyndaSierra kearney MD Unavailable Unavailable LyndaSierra kearney MD Unavailable Unavailable LyndaSierra kearney MD Unavailable Unavailable LyndaSierra kearney MD Unavailable Unavailable LyndaSierra kearney MD Unavailable Unavailable LyndaSierra kearney MD Unavailable Unavailable LyndaSierra kearney MD Unavailable Unavailable LyndaSierra kearney MD Unavailable Unavailable Lyndaker, Sierra Calderon MD Unavailable Unavailable Lyndaker, Sierra Calderon MD Unavailable Unavailable Lyndaker, Sierra Calderon MD Unavailable Unavailable Lyndaker, Sierra Calderon MD Unavailable Unavailable Lyndaker, Sierra Calderon MD Unavailable Unavailable Lyndaker, Sierra Calderon MD Unavailable Unavailable Lyndaker, Sierra Calderon MD Unavailable Unavailable Lyndaker, Sierra Calderon MD Unavailable Unavailable Lyndaker, L Kvng TOBAR Unavailable Unavailable Lyndaker, Sierra Calderon MD Unavailable Unavailable Lyndaker, L Kvng TOBAR Unavailable Unavailable Lyndaker, Sierra Calderon MD Unavailable Unavailable Lyndaker, Sierra Calderon MD Unavailable Unavailable Lyndaker, Sierra Calderon MD Unavailable Unavailable Lyndaker, L Kvng TOBAR Unavailable Unavailable Lyndaker, Sierra Calderon MD Unavailable Unavailable Lyndaker, Sierra Calderon MD Unavailable Unavailable Lyndaker, Sierra Calderon MD Unavailable Unavailable Lyndaker, Sierra Calderon MD Unavailable Unavailable Lyndaker, Sierra Calderon MD Unavailable Unavailable MEDENT_23, NA Unavailable [phone] Hegard, Zuleima AMERICAN SIGN LANGUAGE TEACHER Unavailable Unavailable Hegard, Zuleima AMERICAN SIGN LANGUAGE TEACHER Unavailable Unavailable Hegard, Zuleima AMERICAN SIGN LANGUAGE TEACHER Unavailable Unavailable Hegard, Zuleima AMERICAN SIGN LANGUAGE TEACHER Unavailable Unavailable Hegard, Zuleima AMERICAN SIGN LANGUAGE TEACHER Unavailable Unavailable Hegard, Zuleima AMERICAN SIGN LANGUAGE TEACHER Unavailable Unavailable Hegard, Zuleima AMERICAN SIGN LANGUAGE TEACHER Unavailable Unavailable Hegard, Zuleima AMERICAN SIGN LANGUAGE TEACHER Unavailable Unavailable Hegard, Zuleima AMERICAN SIGN LANGUAGE TEACHER Unavailable Unavailable Hegard, Zuleima AMERICAN SIGN LANGUAGE TEACHER Unavailable Unavailable Hegard, Zuleima AMERICAN SIGN LANGUAGE TEACHER Unavailable Unavailable Hegard, Zuleima AMERICAN SIGN LANGUAGE TEACHER Unavailable Unavailable Hegard, Zuleima AMERICAN SIGN LANGUAGE TEACHER Unavailable Unavailable Hegard, Zuleima AMERICAN SIGN LANGUAGE TEACHER Unavailable Unavailable Hegard, Zuleima AMERICAN SIGN LANGUAGE TEACHER Unavailable Unavailable Hegard, Zuleima AMERICAN SIGN LANGUAGE TEACHER Unavailable Unavailable Hegard, Zuleima AMERICAN SIGN LANGUAGE TEACHER Unavailable Unavailable Re-disclosure Warning The records that you are about to access may contain information from federally-assisted alcohol or drug abuse programs. If such information is present, then the following federally mandated warning applies: This information has been disclosed to you from records protected by federal confidentiality rules (42 CFR part 2). The federal rules prohibit you from making any further disclosure of this information unless further disclosure is expressly permitted by the written consent of the person to whom it pertains or as otherwise permitted by 42 CFR part 2. A general authorization for the release of medical or other information is NOT sufficient for this purpose. The Federal rules restrict any use of the information to criminally investigate or prosecute any alcohol or drug abuse patient.The records that you are about to access may contain highly sensitive health information, the redisclosure of which is protected by Article 27-F of the [facility] Public Health law. If you continue you may have access to information: Regarding HIV / AIDS; Provided by facilities licensed or operated by the [facility] Office of Mental Health; or Provided by the [facility] Office for People With Developmental Disabilities. If such information is present, then the following [facility] mandated warning applies: This information has been disclosed to you from confidential records which are protected by state law. State law prohibits you from making any further disclosure of this information without the specific written consent of the person to whom it pertains, or as otherwise permitted by law. Any unauthorized further disclosure in violation of state law may result in a fine or custodial sentence or both. A general authorization for the release of medical or other information is NOT sufficient authorization for further disc losure. Encounters Encounter Providers Location Date Indications Data Source(s ) Outpatient Attender: Zuleima Manzano [facility] Main Office 1 01:15:00 PM EDT [facility] Attender: Virginia Gross NP [facility] 01/15 03:15:00 PM EDT [facility] ([facility] Cardiology) <td ID="encounterTypeDescriptionID0">inc ident to previous visit-</td><td>Nancy Fox RPA</td><td>[facility]</td><td>01/10/2021</td><td>1:16PM</td><td>2:23PM</td><td><content ID="encounterDiagnosisID0-0">Polymyalgia Rheumatica</content>, <content ID="encounterDiagnosisID0-1">Osteopenia</content>, <content ID="encounterDiagnosisID0-2">Paroxysmal Atrial Tachycardia</content>, <content ID="encounterDiagnosisID0-3">Osteoarthritis Knee Left</content></td>Outpatient Attender: Nancy GUERRA [facility] 01/10/2021 01:16:00 PM EDT - 01/10/2021 02:23:00 PM EDT Osteoarthritis Knee LeftPolymyalgia RheumaticaParoxysmal Atrial TachycardiaOsteopenia [place] ([facility]) Osteoarthritis Knee Left Polymyalgia Rheumatica Paroxysmal Atrial Tachycardia Osteopenia Out[place] [address] [facility] [address] 12/26/2020 12:00:00 AM EDT eCW1 ([facility]) Unknown [address] [facility] [place] [address] 11/30/2020 12:00:00 AM EDT eCW1 ([facility]) Unknown [address] [facility] [place] [address] 11/15/2020 12:00:00 AM EDT eCW1 ([facility]) [place]patient [address] [facility] [address] 11/02/2020 12:00:00 AM EDT eCW1 ([facility]) Unknown [address] [facility] [place] [address] 11/01/2020 12:00:00 AM EDT eCW1 ([facility]) Unknown [address] [facility] [place] [address] 10/23/2020 12:00:00 AM EDT eCW1 ([facility]) Outpatient [address] [facility] [address] 10/19/2020 12:00:00 AM EDT eCW1 ([facility]) Unknown [address] [facility] [place] [address] 10/19/2020 12:00:00 AM EDT eCW1 ([facility]) Outpatient [address] [facility] [place] [address] 10/11/2020 12:00:00 AM EDT eCW1 ([facility]) [place] [address] [facility] [place] [address] 10/05/2020 12:00:00 AM EDT [facility]) [place] [address] [facility] [address] 09/05/2020 12:00:00 AM EDT [facility] ([facility]) [place] [address] [facility] [address] 08/23/2020 12:00:00 AM EDT [facility] ([facility]) [place] [address] [facility] [address] 08/14/2020 12:00:00 AM EDT eCW1 ([facility]) <td ID="encounterTypeDescriptionID1">COV ID Vaccine</td><td>Kvng Blackwell MD</td><td>[facility]</td><td>08/09/2020</td><td>1:09PM</td><td>1:43PM</td><td></td>Outpatient Attender: Kvng Blackwell MD [facility], [facility] 08/09/2020 01:09:00 PM EDT - 08/09/2020 01:43:35 PM EDT [place] ([facility]) [place] [address] [facility] [address] 07/27/2020 12:00:00 AM EDT eCW1 ([facility]) Outpatient<td ID="encounterTypeDescripti onID2">COVID Vaccine</td><td>Kvng Blackwell [facility]td[facility]td>07/12/2020</td><td>1:27PM</td><td>2:00PM</td><td></td> [facility] 01:27:00 P M EDT - 07/12/2020 02:00:55 PM EDT [place] ([facility]) <td ID="encounterTypeDescriptionID3">Amb ulatory Procedure</td><td>Kvng Blackwell MD</td><td>[facility]</td><td>07/10/2020</td><td>1:31PM</td><td>2:43PM</td><td><content ID="encounterDiagnosisID3-0">Skin Neoplasm Malignant Carcinoma Basal Cell</content></td>Outpatient Attender: Kvng Blackwell MD [facility] 07/10/2020 01:31:00 PM EDT - 07/10/2020 02:43:00 PM ED T Skin Neoplasm Malignant Carcinoma Basal CellSkin Neoplasm Malignant Carcinoma Basal CellSkin Neoplasm Malignant Carcinoma Basal CellSkin Neoplasm Malignant Carcinoma Basal Cell [place] ([facility]) Skin Neoplasm Malignant Carcinoma Basal Cell Skin Neoplasm Malignant Carcinoma Basal Cell Skin Neoplasm Malignant Carcinoma Basal Cell Skin Neoplasm Malignant Carcinoma Basal Cell Outpatient<td ID="encounterTypeDescripti onID6"> Annual Wellness SUBSEQUENT visi t(> 1yr since prev.</td><td>Kvng Blackwell MD</td><td>[facility]</td><td>06/26/2020</td><td> 1:02PM</td><td>2:02PM</td><td><content ID="encounterDiagnosisID6-0">Routine History and Physical Senior Citizen (65-80 Yrs)</content></td> Attender: Kvng Blackwell MD [facility] 06/26/2020 01:02:00 P M EST - 06/26/2020 02:02:00 PM EST Routine History and Physical Senior Citi sukh (65-80 Yrs)Routine History and Physical Senior Citizen (65-80 Yrs)Routine History and Physical Senior Citizen (65-80 Yrs)Routine History and Physical Senior Citizen (65-80 Yrs)Routine History and Physical Senior Citizen (65-80 Yrs)Routine History and Physical Senior Citizen (65-80 Yrs)Routine History and Physical Senior Citizen (65-80 Yrs) [place] ([facility]) Routine History and Physical Senior Citi sukh (65-80 Yrs) Routine History and Physical Senior Citi sukh (65-80 Yrs) Routine History and Physical Senior Citi sukh (65-80 Yrs) Routine History and Physical Senior Citi sukh (65-80 Yrs) Routine History and Physical Senior Citi sukh (65-80 Yrs) Routine History and Physical Senior Citi sukh (65-80 Yrs) Routine History and Physical Senior Citi sukh (65-80 Yrs) <td ID="encounterTypeDescriptionID5">[facility]</td><td>Kvng Blackwell MD</td><td>[facility], [facility]</td><td>06/26/2020</td><td>1:02PM</td><td>2:02PM</td><td><content ID="encounterDiagnosisID5-0">Actinic Keratosis</content>, <content ID="encounterDiagnosisID5-1">Skin Neoplasm Malignant Carcinoma Basal Cell</content>, <content ID="encounterDiagnosisID5-2">Paroxysmal Atrial Tachycardia</content>, <content ID="encounterDiagnosisID5-3">Polymyalgia Rheumatica</content>, <content ID="encounterDiagnosisID5-4">Essential Hypertension</content>, <content ID="encounterDiagnosisID5- 5">Hypercholesterolemia Essential</content></td>Outpatient Attender: Kvng Blackwell MD [facility] 06/26/2020 01:02:00 P M EST - 06/26/2020 02:02:00 PM EST Hypercholesterolemia EssentialEssential HypertensionSkin Neoplasm Malignant Carcinoma Basal CellActinic KeratosisHypercholesterolemia EssentialEssential HypertensionSkin Neoplasm Malignant Carcinoma Basal CellActinic KeratosisHypercholesterolemia EssentialEssential HypertensionSkin Neoplasm Malignant Carcinoma Basal CellActinic KeratosisHypercholesterolemia EssentialEssential HypertensionSkin Neoplasm Malignant Carcinoma Basal CellActinic KeratosisHypercholesterolemia EssentialEssential HypertensionSkin Neoplasm Malignant Carcinoma Basal CellActinic KeratosisHypercholesterolemia EssentialEssential HypertensionSkin Neoplasm Malignant Carcinoma Basal CellActinic KeratosisPolymyalgia RheumaticaPolymyalgia RheumaticaPolymyalgia RheumaticaPolymyalgia RheumaticaPolymyalgia RheumaticaPolymyalgia RheumaticaParoxysmal Atrial TachycardiaParoxysmal Atrial TachycardiaParoxysmal Atrial TachycardiaParoxysmal Atrial TachycardiaParoxysmal Atrial TachycardiaParoxysmal Atrial Tachycardia [place] ([facility]) Hypercholesterolemia Essential Essential Hypertension Skin Neoplasm Malignant Carcinoma Basal Cell Actinic Keratosis Hypercholesterolemia Essential Essential Hypertension Skin Neoplasm Malignant Carcinoma Basal Cell Actinic Keratosis Hypercholesterolemia Essential Essential Hypertension Skin Neoplasm Malignant Carcinoma Basal Cell Actinic Keratosis Hypercholesterolemia Essential Essential Hypertension Skin Neoplasm Malignant Carcinoma Basal Cell Actinic Keratosis Hypercholesterolemia Essential Essential Hypertension Skin Neoplasm Malignant Carcinoma Basal Cell Actinic Keratosis Hypercholesterolemia Essential Essential Hypertension Skin Neoplasm Malignant Carcinoma Basal Cell Actinic Keratosis Polymyalgia Rheumatica Polymyalgia Rheumatica Polymyalgia Rheumatica Polymyalgia Rheumatica Polymyalgia Rheumatica Polymyalgia Rheumatica Paroxysmal Atrial Tachycardia Paroxysmal Atrial Tachycardia Paroxysmal Atrial Tachycardia Paroxysmal Atrial Tachycardia Paroxysmal Atrial Tachycardia Paroxysmal Atrial Tachycardia Outpatient<td ID="encounterTypeDescripti onID4">ANNUAL PE-followup exam</td><td>Kvng Blackwell MD</td><td>[facility], [facility]</td><td>06/26/2020</td><td>1:02PM</td><td>2:02PM</td><td><content ID="encounterDiagnosisID4-0">Routine History and Physical Senior Citizen (65-80 Yrs)</content></td> Attender: Kvng Blackwell MD [facility], [facility] 06/26/2020 01:02:00 PM EST - 06/26/2020 02:02:00 PM ES T Routine History and Physical Senior Citizen (65-80 Yrs)Routine History and Physical Senior Citizen (65-80 Yrs)Routine History and Physical Senior Citizen (65-80 Yrs)Routine History and Physical Senior Citizen (65-80 Yrs)Routine History and Physical Senior Citizen (65-80 Yrs) [place] ([facility]) Routine History and Physical Senior Citi sukh (65-80 Yrs) Routine History and Physical Senior Citi sukh (65-80 Yrs) Routine History and Physical Senior Citi sukh (65-80 Yrs) Routine History and Physical Senior Citi sukh (65-80 Yrs) Routine History and Physical Senior Citi sukh (65-80 Yrs) Office Visit, Est Pt., Level 4 PC [address] [place] [address] 04/30/2020 12:00:00 AM EST eCW1 ([facility]) [place] [address] [facility] [address] 02/01/2020 12:00:00 AM EDT [facility] ([facility]) [place] [address] [facility] [address] 01/24/2020 12:00:00 AM EDT eCW1 ([facility]) Outpatient Attender: AYDEN BO_23 [facility] 01/12/2020 0 2:00:00 PM EDT [facility] ([facility]) <td ID="encounterTypeDescriptionID6">inc ident to previous visit-</td><td>Nancy Fox [facility]</td><td>[facility], [facility]</td><td>12/22/2019</td><td>9:57AM</td><td>10:44AM</td><td><content ID="encounterDiagnosisID6-0">Polymyalgia Rheumatica</content>, <content ID="encounterDiagnosisID6-1">Paroxysmal Atrial Tachycardia</content>, <content ID="encounterDiagnosisID6-2">Osteoarthritis Knee Left</content>, <content ID="encounterDiagnosisID6-3">Osteopenia</content></td>Outpatient Attender: Nancy GUERRA [facility] 12/22/2019 09:57:00 A M EDT - 12/22/2019 10:44:00 AM EDT Osteoarthritis Knee LeftPolymyalgia RheumaticaOsteoarthritis Knee LeftPolymyalgia RheumaticaOsteoarthritis Knee LeftPolymyalgia RheumaticaOsteoarthritis Knee LeftPolymyalgia RheumaticaOsteoarthritis Knee LeftPolymyalgia RheumaticaOsteoarthritis Knee LeftPolymyalgia RheumaticaOsteoarthritis Knee LeftPolymyalgia RheumaticaOsteopeniaParoxysmal Atrial TachycardiaOsteopeniaParoxysmal Atrial TachycardiaOsteopeniaParoxysmal Atrial TachycardiaOsteopeniaParoxysmal Atrial TachycardiaOsteopeniaParoxysmal Atrial TachycardiaOsteopeniaParoxysmal Atrial TachycardiaOsteopeniaParoxysmal Atrial Tachycardia [place] ([facility]) Osteoarthritis Knee Left Polymyalgia Rheumatica Osteoarthritis Knee Left Polymyalgia Rheumatica Osteoarthritis Knee Left Polymyalgia Rheumatica Osteoarthritis Knee Left Polymyalgia Rheumatica Osteoarthritis Knee Left Polymyalgia Rheumatica Osteoarthritis Knee Left Polymyalgia Rheumatica Osteoarthritis Knee Left Polymyalgia Rheumatica Osteopenia Paroxysmal Atrial Tachycardia Osteopenia Paroxysmal Atrial Tachycardia Osteopenia Paroxysmal Atrial Tachycardia Osteopenia Paroxysmal Atrial Tachycardia Osteopenia Paroxysmal Atrial Tachycardia Osteopenia Paroxysmal Atrial Tachycardia Osteopenia Paroxysmal Atrial Tachycardia Immunizations Vaccine Date Status Description Data Source(s) Moderna #2 dose COVID-19(given elsewhere) SARSCOV2 VAC 100MCG/0.5ML IM 08/12/2020 09:27:00 AM EDT completed eCW1 ([facility]) Moderna #2 dose COVID-19(given elsewhere) SARSCOV2 VAC 100MCG/0.5ML IM 08/12/2020 09:27:00 AM EDT completed eCW1 ([facility]) Moderna #2 dose COVID-19(given elsewhere) SARSCOV2 VAC 100MCG/0.5ML IM 08/12/2020 09:27:00 AM EDT completed eCW1 ([facility]) Moderna #2 dose COVID-19(given elsewhere) SARSCOV2 VAC 100MCG/0.5ML IM 08/12/2020 09:27:00 AM EDT completed eCW1 ([facility]) Moderna #2 dose COVID-19(given elsewhere) SARSCOV2 VAC 100MCG/0.5ML IM 08/12/2020 09:27:00 AM EDT completed eCW1 ([facility]) Moderna #2 dose COVID-19(given elsewhere) SARSCOV2 VAC 100MCG/0.5ML IM 08/12/2020 09:27:00 AM EDT completed eCW1 ([facility]) Moderna #2 dose COVID-19(given elsewhere) SARSCOV2 VAC 100MCG/0.5ML IM 08/12/2020 09:27:00 AM EDT completed eCW1 ([facility]) Moderna #2 dose COVID-19(given elsewhere) SARSCOV2 VAC 100MCG/0.5ML IM 08/12/2020 09:27:00 AM EDT completed eCW1 ([facility]) Moderna COVID-19 vaccine 08/09/2020 02:49:00 PM EDT completed <td ID="[id number]">Moderna COVID-19 vaccine</td><td ID="ImmunizationDose-1">2</td><td>08/09/2020</td><td ID="[id number]">Left Deltoid</td><td></td><td ID="Xihdflfmcsovt-Rekwfg-SY0">Complete (Administered)</td><td>[facility]</td><td ID="Zwdddunbilvww-Xqczv-Xeis-Comment-ID1"></td> [place] ([facility]) Moderna COVID-19 vaccine 07/12/2020 04:08:00 PM EDT completed <td ID="Kpmhguxcttbwx-Mtdqzeraxwo-OJ5">Moderna COVID-19 vaccine</td><td ID="ImmunizationDose-0">1</td><td>07/12/2020</td><td ID="Zhivembezyjbr-NogsnZuvx-LC0">Left Deltoid</td><td></td><td ID="Louqbrrrjuwit-Ilguwx-IK4">Complete (Administered)</td><td>[facility]</td><td ID="Bzdbtlahiylqe-Lkcxi-Lpuk-Comment-ID0"></td> [place] ([facility]) Moderna #1 dose COVID-19(given elsewhere) SARSCOV2 VAC 100MCG/0.5ML IM 07/12/2020 09:27:00 AM EDT completed eCW1 ([facility]) Moderna #1 dose COVID-19(given elsewhere) SARSCOV2 VAC 100MCG/0.5ML IM 07/12/2020 09:27:00 AM EDT completed eCW1 ([facility]) Moderna #1 dose COVID-19(given elsewhere) SARSCOV2 VAC 100MCG/0.5ML IM 07/12/2020 09:27:00 AM EDT completed eCW1 ([facility]) Moderna #1 dose COVID-19(given elsewhere) SARSCOV2 VAC 100MCG/0.5ML IM 07/12/2020 09:27:00 AM EDT completed eCW1 ([facility]) Moderna #1 dose COVID-19(given elsewhere) SARSCOV2 VAC 100MCG/0.5ML IM 07/12/2020 09:27:00 AM EDT completed eCW1 ([facility]) Moderna #1 dose COVID-19(given elsewhere) SARSCOV2 VAC 100MCG/0.5ML IM 07/12/2020 09:27:00 AM EDT completed eCW1 ([facility]) Moderna #1 dose COVID-19(given elsewhere) SARSCOV2 VAC 100MCG/0.5ML IM 07/12/2020 09:27:00 AM EDT completed eCW1 ([facility]) Moderna #1 dose COVID-19(given elsewhere) SARSCOV2 VAC 100MCG/0.5ML IM 07/12/2020 09:27:00 AM EDT completed eCW1 ([facility]) Medications Medication Brand Name Start Date Product Form Dose Route Admi nistrative Instructions Pharmacy Instructions Status Indications Reaction Description Data Source(s) 24 HR metoprolol succinate 50 MG Extende d Release Oral Tablet Metoprolol Succinate ER 50 MG Oral Tablet Extended Release 24 Hour Metoprolol Succinate ER 50 MG Oral Tablet Extended Release 24 Hour 10/05/2020 12:00:00 AM EDT 1 active 24 HR metoprolol succinate 50 MG Extended Release Oral Tablet [place] ([facility]) Prednisone 1 MG Oral Tablet predniSONE 1 MG Oral Table t predniSONE 1 MG Oral Tablet 12/22/2019 12:00:00 AM EDT active prednisone 1 MG Oral Tablet [facility]) 24 HR metoprolol succinate 50 MG Extende d Release Oral Tablet Metoprolol Succinate ER 50 MG Oral Tablet Extended Release 24 Hour Metoprolol Succinate ER 50 MG Oral Tablet Extended Release 24 Hour 10/07/2019 12:00:00 AM EDT 1 aborted 24 HR metoprolol succinate 50 MG Extended Release Oral Tablet [place] ([facility] 0.65 ML Varicella-Zoster Virus Vaccine L roxanne (Cartavi) strain [id number] UNT/ML Injection [Zostavax] Zostavax 33595 UNT/0.65ML Suspension Reconstituted Zostavax 33949 UNT/0.65ML Suspension Reconstituted 12/09/2016 12:00:00 AM EDT aborted 0.65 ML varicella-zo ster virus vaccine live (Cartavi) strain 61513 UNT/ML Injection [Zostavax] [place] ([facility] [employer] Insurance Providers Payer name Policy type / Coverage type Policy ID Covered green party ID Covered green party's relationship to hernandez Policy Hernandez Plan Information [employer] Other 0 [id number] Self 0 [employer] Other 0 [id number] Self 0 [employer] Other 0 [id number] Self 0 [employer] Other 0 [id number] Self 0 [employer] Other 0 [id number] Self 0 UnitedHealthcare Other 0 [id number] Self 0 UnitedHealthcare Other 0 [id number] Self 0 [employer] Other 0 [id number] Self 0 [employer]Health[employer] Other 0 [id number] Self 0 [employer] Other 0 [id number] Self 0 [employer] Other 0 [id number] Self 0 [employer] Other 0 [id number] Self 0 [employer] Other 0 [id number] Self 0 [employer] Other 0 [id number] Self 0 [employer] Other 0 [id number] Self 0 [employer] Other 0 [id number] Self 0 [employer] Other 0 [id number] Self 0 [employer] Other 0 [id number] Self 0 [employer] Other 0 [id number] Self 0 [employer] Other 0 [id number] Self 0 [employer] Other 0 [id number] Self 0 [employer] Other 0 [id number] Self 0 [employer] Other 0 [id number] Self 0 [employer] Other 0 [id number] Self 0 [employer] Commercial [id number] Self MEDICARE COMPLETE [id number] SP [id number] MEDICARE [id number] SP [id number] MEDICARE COMPLETE [id number] SP [id number] MEDICARE COMPLETE [id number] SP [id number] [facility] [id number] SP [id number] [facility]([employer]) O [id number] S [id number] [facility] [id number] SP [id number] ANSI-Medicare Part B [id number] ANSI-Medicare Part B [id number] ANSI-Medicare Part B [id number] ANSI-Medicare Part B [id number] MEDICARE COMPLETE [id number] SP [id number] MEDICARE COMPLETE [id number] SP [id number] [facility] Commercial [id number] Self [id number] MEDICARE COMPLETE [id number] SP [id number] Problems, Conditions, and Diagnoses Code Display Name Description Problem Type Effective Dates Data Source(s) 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 Problem 10/11/2020 12:00:00 AM EDT eCW1 ([facility]) 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 [id number] 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 Problem 08/23/2020 12:00:00 AM EDT eCW1 ([facility]) Z79.52 [id number] senior care 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 Prob ander 08/14/2020 12:00:00 AM EDT eCW1 ([facility]) M17.0 [id number] Primary osteoarthritis of both knees Prob ander 02/01/2020 12:00:00 AM EDT eCW1 ([facility]) E11.9 Type 2 diabetes mellitus Type 2 diabetes mellitus Prob ander 01/12/2020 12:00:00 AM EDT [facility]) 725 Polymyalgia Rheumatica Polymyalgia Rheumatica Problem 12/22/2019 11:21:00 AM EDT [place] ([facility]) 725 Polymyalgia Rheumatica Polymyalgia Rheumatica Problem 12/22/2019 11:21:00 AM EDT [place] ([facility]) 725 Polymyalgia Rheumatica Polymyalgia Rheumatica Problem 12/22/2019 11:21:00 AM EDT [place] ([facility]) 725 Polymyalgia Rheumatica Polymyalgia Rheumatica Problem 12/22/2019 11:21:00 AM EDT [place] ([facility]) 725 Polymyalgia Rheumatica Polymyalgia Rheumatica Problem 12/22/2019 11:21:00 AM EDT [place] ([facility]) 725 Polymyalgia Rheumatica Polymyalgia Rheumatica Problem 12/22/2019 11:21:00 AM EDT [place] ([facility]) 725 Polymyalgia Rheumatica Polymyalgia Rheumatica Problem 12/22/2019 11:21:00 AM EDT [place] ([facility]) 725 Polymyalgia Rheumatica Polymyalgia Rheumatica Problem 12/22/2019 11:21:00 AM EDT [place] ([facility]) Surgeries/Procedures Procedure Description Date Indications Data Source(s) OFFICE OUTPATIENT VISIT 25 MINUTES 01/30/2021 12:00:00 AM EDT BETZ[place] ([facility]) OFFICE OUTPATIENT VISIT 25 MINUTES 01/15/2021 12:00:00 AM EDT [facility]iology) Med: Derm Lidocaine with Epinephrine Inj ection 1% with 2 ml sodium bicarbonate Intradermally to marked areas 08/23/2020 12:00:00 AM EDT eCW1 ([facility]) MODERNA vaccine, 1st or 2nd dose MODERNA vaccine, 1st or 2nd dose 08/09/2020 12:00:00 AM EDT [place] ([facility]) MODERNA administration, 2nd dose MODERNA administration, 2nd dose 08/09/2020 12:00:00 AM EDT [place] ([facility]) MODERNA administration, 1st dose MODERNA administration, 1st dose 07/12/2020 12:00:00 AM EDT [place] ([facility]) MODERNA vaccine, 1st or 2nd dose MODERNA vaccine, 1st or 2nd dose 07/12/2020 12:00:00 AM EDT [place] ([facility]) no charge procedure no charge procedure 07/10/2020 12:00:00 AM EDT [place] ([facility]) Annual depression screening, 15 minutes MC-Annual depr ession screening- 15 min. (Distinct Seperate service-same day) 06/26/2020 12:00:00 AM [facility] ([facility]) Annual wellness visit, includes a person alized prevention plan of service (pps), subsequent visit - subseq't annual wellness exam(1 yr after Initial) 06/26/2020 12:00:00 AM [facility]) Annual wellness visit, includes a person alized prevention plan of service (pps), subsequent visit MC- subseq't annual wellness exam(1 yr after Initial) 06/26/2020 12:00:00 AM [facility] ([facility]) Annual depression screening, 15 minutes MC-Annual depr ession screening- 15 min. (59) 06/26/2020 12:00:00 AM [facility] ([facility]) Fasting Lipid Profile Fasting Lipid Profile 06/21/2020 12:00:00 AM [facility] ([facility]) CMP-Complete Metabolic Profile CMP-Complete Metabolic Profil e 06/21/2020 12:00:00 AM [facility] ([facility]) CBC CBC 06/21/2020 12:00:00 AM EST [facility]) Venipuncture (routine) Venipuncture (routine) 06/21/2020 12:00:00 A M [facility]) Echocardiography, Tranthoracic Complete Image Documentation 01/26/2020 12:00:00 AM EDT [facility] ([facility]) Results ID Date Data Source ERYTHROCYTE SEDIMENTATION RATE 12/27/2020 12:00:00 AM EDT eC W1 ([facility]) Name Value Range Interpretation Code Description Data Nicole rce(s) Supporting Document(s) 7 0-30 ERYTHROCYTE SEDIMENTATION RATE eCW1 ([facility]) ID Date Data Source C REACTIVE PROTEIN QUANTITATIV (At [facility]) 12/27/2020 12:00 :00 AM EDT eCW1 ([facility]) Name Value Range Interpretation Code Description Data Nicole rce(s) Supporting Document(s) 0.67 0.00-0.30 C REACTIVE PROTEIN QUANTI TATIV eCW1 ([facility]) ID Date Data Source Comprehensive Metabolic Profile (CMP) 12/27/2020 12:00:00 AM EDT eCW1 ([facility]) Name Value Range Interpretation Code Description Data Nicole rce(s) Supporting Document(s) 112 70-100 GLUCOSE, FASTING eCW1 ([facility]) 0.88 0.55-1.30 CREATININE FOR GFR eCW1 ([facility]) 17 7-18 BLOOD UREA NITROGEN eCW1 ([facility]) 141 136-145 SODIUM LEVEL eCW1 ([facility]) > 60.0 >39 GLOMERULAR FILTRATION RATE eCW 1 ([facility]) 4.3 3.5-5.1 POTASSIUM SERUM eCW1 ([facility]) 105 98-107 CHLORIDE LEVEL eCW1 ([facility]) 30 21-32 CARBON DIOXIDE LEVEL eCW1 ([facility]) 9.0 8.8-10.2 CALCIUM LEVEL eCW1 ([facility]) 15 7-37 AST/SGOT eCW1 ([facility]) 21 12-78 ALT/SGPT eCW1 ([facility]) 62 45-117 ALKALINE PHOSPHATASE eCW1 ([facility]) 0.4 0.2-1.0 BILIRUBIN,TOTAL eCW1 ([facility]) 6.6 6.4-8.2 TOTAL PROTEIN eCW1 ([facility]) 3.6 3.2-5.2 ALBUMIN eCW1 ([facility]) 1.2 1.2-2.2 ALBUMIN/GLOBULIN RATIO eCW1 (S [facility]) ID Date Data Source CBC with Differential 12/27/2020 12:00:00 AM EDT eCW1 ([facility]) Name Value Range Interpretation Code Description Data Nicole rce(s) Supporting Document(s) 5.4 4.0-10.0 WHITE BLOOD COUNT eCW1 ([facility]) 4.38 4.00-5.40 RED BLOOD COUNT eCW1 ([facility]) 43.1 36.0-47.0 HEMATOCRIT eCW1 ([facility]) 13.5 12.0-15.5 HEMOGLOBIN eCW1 ([facility]) 98.4 80.0-96.0 MEAN CORPUSCULAR VOLUME e CW1 ([facility]) 31.3 32.0-36.5 MEAN CORPUSCULAR HGB CONC eCW1 ([facility]) 30.8 27.0-33.0 MEAN CORPUSCULAR HEMOGLOB IN eCW1 ([facility]) 220 150-450 PLATELET COUNT, AUTOMATED eCW1 ([facility]) 12.4 11.5-14.5 RED CELL DISTRIBUTION WID TH eCW1 ([facility]) 45.0 36.0-66.0 NEUTROPHILS % eCW1 ([facility]) 32.5 24.0-44.0 LYMPH % eCW1 ([facility]) 4.2 0.0-3.0 EOS % eCW1 ([facility]) 16.6 2.0-8.0 MONO % eCW1 ([facility]) 1.1 0.0-1.0 BASO % eCW1 ([facility]) 2.4 1.5-8.5 NEUTROPHILS # eCW1 ([facility]) 1.8 1.5-5.0 LYMPH # eCW1 ([facility]) 0.9 0.0-0.8 MONO # eCW1 ([facility]) 0.2 0.0-0.5 EOS # eCW1 ([facility]) 0.1 0.0-0.2 BASO # eCW1 ([facility]) ID Date Data Source VITAMIN D 25-HYDROXY 08/14/2020 12:00:00 AM EDT eCW1 ([facility]) Name Value Range Interpretation Code Description Data Nicole rce(s) Supporting Document(s) 30.8 30.0-100.0 TOTAL 25(OH) VITAMIN D eC W1 ([facility]) ID Date Data Source [id number] 06/21/2020 08:55:00 AM EST [place] ([facility]) Name Value Range Interpretation Code Description Data Nicole rce(s) Supporting Document(s) Dir. LDL 126 mg/dl Dir. LDL [place] ([facility]) Note: Responsible Observer: KM HDL 59 mg/dl Above high normal HDL [place] ([facility]) Note: Responsible Observer: KM Cholesterol [Moles/volume] in Pericardial fluid 234 mg/dl Above high normal Cholesterol [place] ([facility]) Note: Responsible Observer: KM Triglycerides 145 mg/dl Triglycerides [place] ([facility]) Note: Responsible Observer: KM ID Date Data Source [id number] 06/21/2020 08:55:00 AM EST [place] ([facility]) Name Value Range Interpretation Code Description Data Nicole rce(s) Supporting Document(s) Alkaline Phos 56 IU/L Alkaline Phos [place] ([facility]) Note: Responsible Observer: KM Albumin [Mass/volume] in Blood by Bromocresol purple ( BCP) dye binding method 4.2 g/dl Albumin [place] ([facility] Note: Responsible Observer: KM ALT 12 IU/L ALT [place] ([facility]) Note: Responsible Observer: KM Urea nitrogen [Moles/volume] in Blood 22 mg/dl Abo ve high normal Urea Nitrogen [place] ([facility]) Note: Responsible Observer: KM AST 13 IU/L AST [place] ([facility]) Note: Responsible Observer: KM CO2 24 mmol/L CO2 [place] ([facility]) Note: Responsible Observer: KM Chloride [Moles/volume] in Serum, Plasma or Blood 106 mmol/L Chloride [place] ([facility]) Note: Responsible Observer: KM Calcium [Moles/volume] in Urine collected for unspecified durati on 8.4 mg/dl Calcium [place] ([facility]) Note: Responsible Observer: KM Creatinine [Moles/volume] in Vitreous fluid 0.9 mg/dl Creatinine [place] ([facility]) Note: Responsible Observer: KM Glucose [Mass/volume] in Urine collected for unspecified duration 1 02 mg/dl Glucose [place] ([facility]) Note: Responsible Observer: KM Potassium [Mass/volume] in Blood 5 mmol/L Pot assium [place] ([facility]) Note: Responsible Observer: KM Sodium [Moles/volume] in Serum, Plasma or Blood 143 mmol/L Sodium [place] ([facility]) Note: Responsible Observer: KM EGFR - AfricanAm > 60 N/A EGFR - AfricanAm [facility] Note: Responsible Observer: KM EGFR - Non AF AM > 60 N/A EGFR - Non AF AM [facility] ([facility]) Note: Responsible Observer: KM Total Protein 6.5 g/dl Total Protein [place] ([facility]) Note: Responsible Observer: KM Total Bilirubin 0.5 mg/dl Total Bil[facility] ([facility]) Note: Responsible Observer: KM ID Date Data Source [id number] 06/21/2020 08:55:00 AM EST [place] ([facility]) Name Value Range Interpretation Code Description Data Nicole rce(s) Supporting Document(s) GRAN# 3.3 /mm3 GRAN# [place] ([facility]) Note: Responsible Observer: KM GRAN% 56.6 % GRAN% [place] ([facility]) Note: Responsible Observer: KM LY# 1.8 /mm3 LY# [place] ([facility]) Note: Responsible Observer: KM HCT 40.4 % HCT [place] ([facility]) Note: Responsible Observer: KM HGB 13.1 g/dl HGB [place] ([facility]) Note: Responsible Observer: KM LY% 32.0 % LY% [place] ([facility]) Note: Responsible Observer: KM MCH 31.3 pg MCH [place] ([facility]) Note: Responsible Observer: KM MCHC 32.5 G/DL MCHC [place] ([facility]) Note: Responsible Observer: KM MID# 0.7 /mm3 MID# [place] ([facility]) Note: Responsible Observer: KM MID% 11.4 % Above high normal MID% [place] ([facility]) Note: Responsible Observer: KM MCV 96.4 um3 Above high normal MCV [place] ([facility]) Note: Responsible Observer: KM RBC 4.19 /mm3 RBC [place] ([facility]) Note: Responsible Observer: KM PLT 188 /mm3 PLT [place] ([facility]) Note: Responsible Observer: KM MPV 10.0 um3 MPV [place] ([facility]) Note: Responsible Observer: KM WBC 5.8 /mm3 WBC [place] ([facility]) Note: Responsible Observer: KM RDW 15.1 % Above high normal RDW [place] ([facility]) Note: Responsible Observer: KM ID Date Data Source [id number] 01/26/2020 01:21:00 PM EDT [facility] ([facility]) Name Value Range Interpretation Code Description Data Nicole rce(s) Supporting Document(s) Echocardiogram Laboratory test result ME DENT ([facility]) Procedure Social History Code Duration Value Status Description Data Source(s ) Smoking 12/26/2020 12:00:00 AM EDT Never Smoker completed Never S moker eCW1 ([facility]) Smoking 10/19/2020 12:00:00 AM EDT Never Smoker completed Never S moker eCW1 ([facility]) Smoking 10/19/2020 12:00:00 AM EDT Never Smoker completed Never S moker eCW1 ([facility]) Smoking 10/19/2020 12:00:00 AM EDT Never Smoker completed Never S moker eCW1 ([facility]) Smoking 10/19/2020 12:00:00 AM EDT Never Smoker completed Never S moker eCW1 ([facility]) Smoking 10/19/2020 12:00:00 AM EDT Never Smoker completed Never S moker eCW1 ([facility]) Smoking 10/19/2020 12:00:00 AM EDT Never Smoker completed Never S moker eCW1 ([facility]) Smoking 10/19/2020 12:00:00 AM EDT Never Smoker completed Never S moker eCW1 ([facility]) Smoking 10/11/2020 12:00:00 AM EDT Never Smoker completed Never S moker eCW1 ([facility]) Smoking 08/23/2020 12:00:00 AM EDT Never Smoker completed Never S moker eCW1 ([facility]) Smoking 08/23/2020 12:00:00 AM EDT Never Smoker completed Never S moker eCW1 ([facility]) Smoking 08/23/2020 12:00:00 AM EDT Never Smoker completed Never S moker eCW1 ([facility]) Smoking 08/14/2020 12:00:00 AM EDT Never Smoker completed Never S moker eCW1 ([facility]) Smoking 04/30/2020 12:00:00 AM EST Never Smoker completed Never S moker eCW1 ([facility]) Smoking 04/30/2020 12:00:00 AM EST Never Smoker completed Never S moker eCW1 ([facility]) Smoking 02/01/2020 12:00:00 AM EDT Never Smoker completed Never S moker eCW1 ([facility]) Vital Signs ID Date Data Source UNK Name Value Range Interpretation Code Description Data Source(s) Systolic blood pressure 135 mm[Hg] 135 mm[Hg] M JORGE A ([facility]) Diastolic blood pressure 76 mm[Hg] 76 mm[Hg] BETZ[place] ([facility]) Heart rate 87 /min 87 /min BETZY ([facility]) Body weight 175.00 [lb_av] 175.00 [lb_av] JOEEN T ([facility]) Systolic blood pressure 142 mm[Hg] 142 mm[Hg] M EDRA ([facility]) retake Diastolic blood pressure 78 mm[Hg] 78 mm[Hg] [place] ([facility]) retake Body mass index (BMI) [Ratio] 33.1 kg/m2 33.1 k g/m2 [facility] ([facility]) Systolic blood pressure 168 mm[Hg] 168 mm[Hg] M EDENT ([facility]) x2 Diastolic blood pressure 90 mm[Hg] 90 mm[Hg] [facility] ([facility]) x2 Heart rate 72 /min 72 /min [facility] ([facility]) Body height 61 [in_i] 61 [in_i] [facility] ([facility]) 5'1" Body weight 175.00 [lb_av] 175.00 [lb_av] MEDEN T ([facility]) Systolic blood pressure 136 mm[Hg] 136 mm[Hg] G REENWAY ([facility]) Diastolic blood pressure 78 mm[Hg] 78 mm[Hg] [place] ([facility]) Heart rate 62 /min 62 /min [place] ([facility]) Respiratory rate 22 /min 22 /min [place] ([facility]) Body height 60.75 [in_i] 60.75 [in_i] [place] ([facility]) Body weight 179 [lb_av] 179 [lb_av] [place] ([facility]) Body mass index (BMI) [Ratio] 34.1 kg/m2 34.1 k g/m2 [place] ([facility]) Body surface area Derived from formula 1.80 m2 1.80 m2 [place] ([facility]) Body mass index (BMI) [Ratio] 35.38 kg/m2 35.38 kg/m2 eCW1 ([facility]) Heart rate 74 /min 74 /min eCW1 ([facility]) Body height 60 [in_i] 60 [in_i] eCW1 ([facility]) Body weight 181.2 [lb_av] 181.2 [lb_av] eCW1 ([facility]) Respiratory rate 18 /min 18 /min eCW1 ([facility]) Body weight 82.19 kg 82.19 kg eCW1 ([facility]) Body temperature 97.1 [degF] 97.1 [degF] eCW1 ( [facility]) Systolic blood pressure 124 mm[Hg] 124 mm[Hg] e CW1 ([facility]) Diastolic blood pressure 68 mm[Hg] 68 mm[Hg] eCW1 ([facility]) Body weight 188.6 [lb_av] 188.6 [lb_av] eCW1 ([facility]) Body weight 85.5 kg 85.5 kg eCW1 ([facility]) Body height 60 [in_i] 60 [in_i] eCW1 ([facility]) Body mass index (BMI) [Ratio] 36.83 kg/m2 36.83 kg/m2 eCW1 ([facility]) Heart rate 67 /min 67 /min eCW1 ([facility]) Respiratory rate 18 /min 18 /min eCW1 ([facility]) Body temperature 97.2 [degF] 97.2 [degF] eCW1 ( [facility]) Systolic blood pressure 130 mm[Hg] 130 mm[Hg] e CW1 ([facility]) Diastolic blood pressure 88 mm[Hg] 88 mm[Hg] eCW1 ([facility]) Systolic blood pressure 123 mm[Hg] 123 mm[Hg] e CW1 ([facility]) Body weight 187.6 [lb_av] 187.6 [lb_av] eCW1 ([facility]) Body height 60 [in_i] 60 [in_i] eCW1 ([facility]) Body mass index (BMI) [Ratio] 36.63 kg/m2 36.63 kg/m2 eCW1 ([facility]) Diastolic blood pressure 81 mm[Hg] 81 mm[Hg] eCW1 ([facility]) Body weight 189 [lb_av] 189 [lb_av] eCW1 ([facility]) Body height 60 [in_i] 60 [in_i] eCW1 ([facility]) Body mass index (BMI) [Ratio] 36.91 kg/m2 36.91 kg/m2 eCW1 ([facility]) Systolic blood pressure 120 mm[Hg] 120 mm[Hg] e CW1 ([facility]ly [facility]) Diastolic blood pressure 78 mm[Hg] 78 mm[Hg] eCW1 ([facility]) Body weight 189.0 [lb_av] 189.0 [lb_av] eCW1 ([facility]) Body weight 85.7 kg 85.7 kg eCW1 ([facility]) Body height 60 [in_i] 60 [in_i] eCW1 ([facility]) Body mass index (BMI) [Ratio] 36.91 kg/m2 36.91 kg/m2 eCW1 ([facility]) Heart rate 74 /min 74 /min eCW1 ([facility]) Respiratory rate 18 /min 18 /min eCW1 ([facility]) Body temperature 97.5 [degF] 97.5 [degF] eCW1 ( [facility]) Systolic blood pressure 128 mm[Hg] 128 mm[Hg] e CW1 ([facility]) Diastolic blood pressure 70 mm[Hg] 70 mm[Hg] eCW1 ([facility]) Systolic blood pressure 159 mm[Hg] 159 mm[Hg] M EDENT ([facility]) Diastolic blood pressure 71 mm[Hg] 71 mm[Hg] MEDENT ([facility]) Body weight 185.00 [lb_av] 185.00 [lb_av] MEDEN T ([facility]) Body temperature 97.8 [degF] 97.8 [degF] MEDENT ([facility]) Systolic blood pressure 146 mm[Hg] 146 mm[Hg] G COCO ([facility]) recheck Diastolic blood pressure 84 mm[Hg] 84 mm[Hg] OTT[place] ([facility]) recheck Diastolic blood pressure 92 mm[Hg] 92 mm[Hg] [place] ([facility]) Systolic blood pressure 170 mm[Hg] 170 mm[Hg] G [place] ([facility]) Heart rate 68 /min 68 /min [place] ([facility]) Body height 60.75 [in_i] 60.75 [in_i] [place] ([facility]) Body weight 185 [lb_av] 185 [lb_av] [place] ([facility]) Body mass index (BMI) [Ratio] 35.2 kg/m2 35.2 k g/m2 [place] ([facility]) Body surface area Derived from formula 1.82 m2 1.82 m2 [place] ([facility]) Systolic blood pressure 142 mm[Hg] 142 mm[Hg] [facility] MD recheck Diastolic blood pressure 82 mm[Hg] 82 mm[Hg] [place] ([facility]) MD recheck Systolic blood pressure 169 mm[Hg] 169 mm[Hg] [facility] Diastolic blood pressure 80 mm[Hg] 80 mm[Hg] [place] ([facility]) Heart rate 68 /min 68 /min [place] ([facility]) Body height 60.75 [in_i] 60.75 [in_i] [place] ([facility]) Body mass index (BMI) [Ratio] 35.2 kg/m2 35.2 k g/m2 [place] ([facility]) Body weight 185 [lb_av] 185 [lb_av] [place] ([facility]) Body surface area Derived from formula 1.82 m2 1.82 m2 [place] ([facility]) Body mass index (BMI) [Ratio] 35.2 kg/m2 35.2 k g/m2 [place] ([facility]) Systolic blood pressure 169 mm[Hg] 169 mm[Hg] G [facility] ([facility]) Diastolic blood pressure 80 mm[Hg] 80 mm[Hg] [place] ([facility]) Heart rate 68 /min 68 /min [place] ([facility]) Body height 60.75 [in_i] 60.75 [in_i] [place] ([facility]) Body weight 185 [lb_av] 185 [lb_av] [place] ([facility]) Body surface area Derived from formula 1.82 m2 1.82 m2 [place] ([facility]) Systolic blood pressure 169 mm[Hg] 169 mm[Hg] G [facility] ([facility]) Diastolic blood pressure 80 mm[Hg] 80 mm[Hg] [place] ([facility]) Heart rate 68 /min 68 /min [place] ([facility]) Body height 60.75 [in_i] 60.75 [in_i] [place] ([facility]) Body weight 185 [lb_av] 185 [lb_av] [place] ([facility]) Body mass index (BMI) [Ratio] 35.2 kg/m2 35.2 k g/m2 [place] ([facility]) Body surface area Derived from formula 1.82 m2 1.82 m2 [place] ([facility]) Body weight 83.7 kg 83.7 kg eCW1 ([facility]) Body weight 184.6 [lb_av] 184.6 [lb_av] eCW1 ([facility]) Body height 60 [in_i] 60 [in_i] eCW1 ([facility]) Respiratory rate 18 /min 18 /min eCW1 ([facility]) Body mass index (BMI) [Ratio] 36.05 kg/m2 36.05 kg/m2 eCW1 ([facility]) Heart rate 76 /min 76 /min eCW1 ([facility]) Body temperature 97.6 [degF] 97.6 [degF] eCW1 ( [facility]) Systolic blood pressure 122 mm[Hg] 122 mm[Hg] e CW1 ([facility]) Diastolic blood pressure 62 mm[Hg] 62 mm[Hg] eCW1 ([facility]) Body weight 176.6 [lb_av] 176.6 [lb_av] eCW1 ([facility]) Body weight 80.1 kg 80.1 kg eCW1 ([facility]) Body height 60 [in_i] 60 [in_i] eCW1 ([facility]) Body mass index (BMI) [Ratio] 34.49 kg/m2 34.49 kg/m2 eCW1 ([facility]) Heart rate 74 /min 74 /min eCW1 ([facility]) Respiratory rate 18 /min 18 /min eCW1 ([facility]) Body temperature 97.2 [degF] 97.2 [degF] eCW1 ( [facility]) Systolic blood pressure 128 mm[Hg] 128 mm[Hg] e CW1 ([facility]) Diastolic blood pressure 70 mm[Hg] 70 mm[Hg] eCW1 ([facility]) Heart rate 72 /min 72 /min [facility] ([facility]) irregular Body height 60 [in_i] 60 [in_i] [facility] ([facility]) 5'0" Systolic blood pressure 130 mm[Hg] 130 mm[Hg] M EDENT ([facility]) Diastolic blood pressure 82 mm[Hg] 82 mm[Hg] [place] ([facility]) Body weight 175.00 [lb_av] 175.00 [lb_av] MEDEN T ([facility]) Body mass index (BMI) [Ratio] 34.2 kg/m2 34.2 k g/m2 [place] ([facility]) Body mass index (BMI) [Ratio] 33.3 kg/m2 33.3 k g/m2 [place] ([facility]) Heart rate 56 /min 56 /min [place] ([facility]) Diastolic blood pressure 78 mm[Hg] 78 mm[Hg] [place] ([facility]) Respiratory rate 20 /min 20 /min [place] ([facility]) Body height 60.75 [in_i] 60.75 [in_i] [place] ([facility]) Body weight 175 [lb_av] 175 [lb_av] [place] ([facility]) Body surface area Derived from formula 1.78 m2 1.78 m2 [place] ([facility]) Systolic blood pressure 134 mm[Hg] 134 mm[Hg] [facility] Patient Treatment Plan of Care Planned Activity Planned Date Details Description Data Source (s) 24 HR metoprolol succinate 50 MG Extended Release Oral Tablet 10/05/2020 12:00:[address] [facility] ([facility]) 24 HR metoprolol succinate 50 MG Extended Release Oral Tablet 10/07/2019 12:00:00 AM T [place] ([facility]) 0.65 ML Varicella-Zoster Virus Vaccine L roxanne ([employer]) strain [id number] UNT/ML Injection [Zostavax] 12/09/2016 12:00:[address] [facility] ([facility])
--- OUTSIDE RECORDS SUMMARY | 2021-02-17 08:24 | CCD ---
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 C44.1 11 Active confirmed 758629377 Problem SYED positive R76.8 Active confirmed 1021265 01 Problem 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 Active confirmed 330843056 Problem Primary osteoarthritis, 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 Active confirmed 933735695959380 Problem Primary osteoarthritis, right hand M19.041 Activ e confirmed 81445193 Problem Primary osteoarthritis of both knees M17.0 Act roxanne confirmed 776974112 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 Active confirmed [id number] ALLERGIES Allergen (clinical drug ingredient) Drug/Non Drug Allergy do cumented on EMR Reaction Allergy Type Onset Date Status Eggs Unknown Non Drug Allergy Active Cefzil Unknown Drug Allergy Active Penicillin (For Allergies Use Only) Unknown Drug Allerg y Active doxycycline Doxycycline([facility] Code:[address]-84) Unknown Drug Aller gy Active ENCOUNTERS from 1940 to 2020-12-07 Encounter Location Date Provider Diagnosis [facility] Rheumatology [address] [place] [address] [place] [address] Nov, Ana Llamas IMMUNIZATIONS Vaccine Route Administration Date Status Moderna [...] REASON FOR REFERRAL No Information VITAL SIGNS No information MEDICATIONS Medication SIG (Take, Route, Frequency, Duration) Notes Start Da te End Date Status Glucosamine Chond Complex/MSM - as directed Orally Not-Taking Nitrofurantoin Monohyd Macro 100 MG 1 capsule at bedti me with food Orally Once a day for 30 day(s) FINISHED Not-Taking Calcium 600 MG 1 tablet with meals Orally Once a day Active Multi Vitamin - 1 tablet Orally Once a day for 30 day(s) Active Vitamin B12 1/2 tablet Orally Once a day Active Fluorouracil 5 % External for 30 No t-Taking Magnesium 250 MG 1 tablet with a meal Orally Once a day for 30 day(s) Not-Taking predniSONE 1 MG 3 tabs daily Orally as directed for 30 d ays 08/14/20: taking 4 mg daily Active Metoprolol Succinate ER 50 MG TAKE ONE TABLET BY MOUTH EVERY DAY Oral for 90 Active Vitamin D3 25 MCG (1000 UT) 1 capsule Orally Once a day Active PROCEDURES No Information RESULTS No Results REASON FOR VISIT Lab results MEDICAL (GENERAL) HISTORY Type Description Date Medical History hypertension Medical History polymyalgia rheumatica Medical History KIDNEY STONES Surgical History appendectomy Surgical History hysterectomy Surgical History tonsillectomy Surgical History CATRACT REMOVED FROM RIGHT EYE Surgical History Biopsy in nose by Dr. Toussaint 08/23/20 Goals Section No Information Health Concerns No Information MEDICAL EQUIPMENT No Information MENTAL STATUS No Information FUNCTIONAL STATUS No Information ASSESSMENTS No Information PLAN OF TREATMENT Medication Medication Name Sig Start Date Stop Date predniSONE 1 MG 3 tabs daily Orally as directed for 30 days Next Appt Details Provider Name:Ana Jacobsonew, 03:45:00 PM, [address] [place] [address], , [place], [place], [facility], Insurance Providers Payer Name Payer Address Payer Phone Insured Name Patient Relati onship to Insured Coverage Start Date Coverage End Date MEDICARE COMPLETE [employer] [address] [facility] [id number] DEE SARABIA MEDICARE Part A and B [address] [facility] [phone] DEE SARABIA self
--- OUTSIDE RECORDS SUMMARY | 2021-02-17 08:24 | CCD | Continuity of Care Document ---
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 Paroxysmal supraventricular tachycardia Fazal East MD Onset: 01/01/2017 Polymyalgia rheumatica Beau Chaney MD Onset: 01/05/2018 Type 2 diabetes mellitus Virginia Gross, RN, [employer]ING [employer] 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 Onset: 2019 Obesity Manas Murry MD Onset: [...] Available Procedures Date Code Description Status 01/15/2021 77702 Office/Outpatient Established Mo d MDM 30-39 Min Completed Medical Devices Description No Information Available Encounters Type Date Location Provider Dx Diagnosis Office Visit 01/15/2021 3:15p [facility] Virginia Gross RN, [employer] 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 E11.9 Type 2 diabetes mellitus without complications R94.31 Abnormal electrocardiogram [ ECG] [EKG] E66.09 Other obesity due to excess calories I47.1 Supraventricular tachycardia R00.2 Palpitations I10 Essential (primary) hyperten berenice Assessments Date Code Description Provider 01/15/2021 E11.9 Type 2 diabetes mellitus without complications Virginia Gross RN, [employer]ING [employer] 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 01/15/2021 R94.31 Abnormal electrocardiogram [ECG] [EKG] Virginia Gross RN, EREN 01/15/2021 E66.09 Other obesity due to excess [place] peter Virginia Gross RN, [employer]ING [employer] 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 01/15/2021 I47.1 Supraventricular tachycardia Cassandra Gross RN, [employer]ING [employer] 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 01/15/2021 R00.2 Palpitations Virginia Gross RN , [employer]ING [employer] 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 01/15/2021 I10 Essential (primary) hypertension Virginia Gross RN, [employer]ING [employer] 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 Plan of Treatment Future Appointment(s):* 12/24/2021 1:00 pm - [facility]ORY MANAGER/Device ([id number]) at [facility] * 11/26/2021 1:00 pm - [facility] ([id number]) at [facility] 01/15/2021 - Virginia Gross RN, REINFORCING [employer]ON 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* E11.9 Type 2 diabetes mellitus without complications [...] cholesterol diet. Patient was evaluated in our [place] office and plan of care has been reviewed with Dr. Murry. Functional Status Description No Information Available Mental Status Description No Information Available Referrals Description No Information Available
--- OUTSIDE RECORDS SUMMARY | 2021-02-17 11:31 | CCD ---
Author Author [facility] Organization [facility] Address Unknown Phone Unavailable Care Team Providers Care Safety Supervisor Name Role Phone Hamo, M [place] GROUND WATER PUMP INSTALLER Unavailable Unavailable Hamo, M [place] GROUND WATER PUMP INSTALLER Unavailable Unavailable Hamo, M [place] GROUND WATER PUMP INSTALLER Unavailable Unavailable Hamo, M [place] GROUND WATER PUMP INSTALLER Unavailable Unavailable Hamo, M [place] GROUND WATER PUMP INSTALLER Unavailable Unavailable Hamo, M [place] GROUND WATER PUMP INSTALLER Unavailable Unavailable Hamo, M [place] GROUND WATER PUMP INSTALLER Unavailable Unavailable Hamo, M [place] GROUND WATER PUMP INSTALLER Unavailable Unavailable Hamo, M [place] GROUND WATER PUMP INSTALLER Unavailable Unavailable Hamo, M [place] GROUND WATER PUMP INSTALLER Unavailable Unavailable Hamo, M [place] GROUND WATER PUMP INSTALLER Unavailable Unavailable Hamo, M [place] GROUND WATER PUMP INSTALLER Unavailable Unavailable Hamo, M [place] GROUND WATER PUMP INSTALLER Unavailable Unavailable Hamo, M [place] GROUND WATER PUMP INSTALLER Unavailable Unavailable Hamo, M [place] GROUND WATER PUMP INSTALLER Unavailable Unavailable Hamo, M [place] GROUND WATER PUMP INSTALLER Unavailable Unavailable Hamo, M [place] GROUND WATER PUMP INSTALLER Unavailable Unavailable Hamo, M [place] GROUND WATER PUMP INSTALLER Unavailable Unavailable Hamo, M [place] GROUND WATER PUMP INSTALLER Unavailable Unavailable Fox, Nancy PA Unavailable Unavailable [...] Unavailable LyndaSierra kearney MD Unavailable Unavailable LyndaSierra kaerney MD Unavailable Unavailable LyndaSierra kearney MD Unavailable [...] Calderon MD Unavailable Unavailable MEDENT_23, NA Unavailable [phone] Hegard, Zuleima FULL SERVICE SUPERVISOR Unavailable Unavailable Hegard, Zuleima FULL SERVICE SUPERVISOR Unavailable Unavailable Hegard, Zuleima FULL SERVICE SUPERVISOR Unavailable Unavailable Hegard, Zuleima FULL SERVICE SUPERVISOR Unavailable Unavailable Hegard, Zuleima FULL SERVICE SUPERVISOR Unavailable Unavailable Hegard, Zuleima FULL SERVICE SUPERVISOR Unavailable Unavailable Hegard, Zuleima FULL SERVICE SUPERVISOR Unavailable Unavailable Hegard, Zuleima FULL SERVICE SUPERVISOR Unavailable Unavailable Hegard, Zuleima FULL SERVICE SUPERVISOR Unavailable Unavailable Hegard, Zuleima FULL SERVICE SUPERVISOR Unavailable Unavailable Hegard, Zuleima FULL SERVICE SUPERVISOR Unavailable Unavailable Hegard, Zuleima FULL SERVICE SUPERVISOR Unavailable Unavailable Hegard, Zuleima FULL SERVICE SUPERVISOR Unavailable Unavailable Hegard, Zuleima FULL SERVICE SUPERVISOR Unavailable Unavailable Hegard, Zuleima FULL SERVICE SUPERVISOR Unavailable Unavailable Hegard, Zuleima FULL SERVICE SUPERVISOR Unavailable Unavailable Hegard, Zuleima FULL SERVICE SUPERVISOR Unavailable Unavailable Re-disclosure Warning The records that [...] is protected by Article 27-F of the [facility] Public Health law. If you continue you may have access to information: Regarding HIV / AIDS; Provided by facilities licensed or operated by the [facility] Office of Mental Health; or Provided by the [facility] Office for People With Developmental Disabilities. If such information is present, then the following [facility] mandated warning applies: This information has been [...] law may result in a fine or mcc sentence or both. A general authorization for the release of medical or other information is NOT sufficient authorization for further disc losure. Encounters Encounter Providers Location Date Indications Data Source(s ) Outpatient Attender: Zuleima Manzano [facility] Main Office 1 01:15:00 PM EDT [facility] Attender: Virginia Gross NP [facility] 01/15 03:15:00 PM EDT MEDENT ([facility] Cardiology) Outpatient<td ID="encounterTypeDescripti onID0">incident to previous visit- </td><td>Nancy Fox RPA</td><td>[facility]</td><td>01/10/2021</td><td>1:16PM</td><td>2:23PM</td><td><content ID="encounterDiagnosisID0-0">Polymyalgia Rheumatica</content>, <content ID="encounterDiagnosisID0-1">Osteopenia</content>, <content ID="encounterDiagnosisID0-2">Paroxysmal Atrial Tachycardia</content>, <content ID="encounterDiagnosisID0-3">Osteoarthritis Knee Left</content></td> Attender: Nancy GUERRA [facility] 01/10/2021 01:16:00 P M EDT - 01/10/2021 02:23:00 PM EDT Osteoarthritis Knee LeftPolymyalgia RheumaticaParoxysmal Atrial TachycardiaOsteopenia [place] ([facility]) Osteoarthritis Knee Left Polymyalgia Rheumatica Paroxysmal Atrial Tachycardia Osteopenia Outpatient [address] [facility] [address] 12/26/2020 12:00:00 AM EDT eCW1 ([facility]) Unknown [address] [facility] [place] [address] 11/30/2020 12:00:00 AM EDT eCW1 ([facility]) Unknown [address] [facility] [place] [address] 11/15/2020 12:00:00 AM EDT eCW1 ([facility]) Outpatient [address] [facility] [address] 11/02/2020 12:00:00 AM EDT eCW1 ([facility]) Unknown [address] [facility] [place] [address] 11/01/2020 12:00:00 AM EDT eCW1 ([facility]) Unknown [address] [facility] [place] [address] 10/23/2020 12:00:00 AM EDT eCW1 ([facility]) Outpatient [address] [facility] [address] 10/19/2020 12:00:00 AM EDT eCW1 ([facility]) Unknown [address] [facility] [place] [address] 10/19/2020 12:00:00 AM EDT eCW1 ([facility]) Outpatient [address] [facility] [place] [address] 10/11/2020 12:00:00 AM EDT eCW1 ([facility]) Unknown [address] [facility] [place] [address] 10/05/2020 12:00:00 AM EDT eCW1 ([facility]) Unknown [address] [facility] [address] 09/05/2020 12:00:00 AM EDT eCW1 ([facility]) Outpatient [address] [facility] [address] 08/23/2020 12:00:00 AM EDT eCW1 ([facility]) Outpatient [address] [facility] [address] 08/14/2020 12:00:00 AM EDT eCW1 ([facility]) <td ID="encounterTypeDescriptionID1">COV ID Vaccine</td><td>Kvng Blackwell MD</td><td>[facility]</td><td>08/09/2020</td><td>1:09PM</td><td>1:43PM</td><td></td>Outpatient Attender: Kvng Blackwell MD [facility], [facility] 08/09/2020 01:09:00 PM EDT - 08/09/2020 01:43:35 PM EDT [place] ([facility]) Unknown [address] [facility] [address] 07/27/2020 12:00:00 AM EDT eCW1 ([facility]) Outpatient<td ID="encounterTypeDescripti onID2">COVID Vaccine</td><td>K[facility]ng Blackwell MD</td><[facility]td><td>07/12/2020</td><td>1:27PM</td><td>2:00PM</td><td></td> Att[facility]: [facility]12[facility]2020 01:27:00 P M EDT - 07/12/2020 02:00:55 PM EDT [place] ([facility]) <td ID="encounterTypeDescriptionID3">Amb ulatory Procedure</td><td>Kvng Blackwell MD</td><td>[facility]</td><td>07/10/2020</td><td>1:31PM</td><td>2:43PM</td><td><content ID="encounterDiagnosisID3-0">Skin Neoplasm Malignant Carcinoma Basal Cell</content></td>Outpatient Attender: Kvng Blackwell MD [facility] 07/10/2020 01:31:00 PM EDT - 07/10/2020 02:43:00 PM ED T Skin Neoplasm Malignant Carcinoma Basal CellSkin Neoplasm Malignant Carcinoma Basal CellSkin Neoplasm Malignant Carcinoma Basal CellSkin Neoplasm Malignant Carcinoma Basal Cell [place] ([facility]) Skin Neoplasm Malignant Carcinoma Basal Cell Skin Neoplasm Malignant Carcinoma Basal Cell Skin Neoplasm Malignant Carcinoma Basal Cell Skin Neoplasm Malignant Carcinoma Basal Cell Outpatient<td ID="encounterTypeDescripti onID6"> Annual Wellness SUBSEQUENT visi t(> 1yr since prev.</td><td>Kvng Blackwell MD</td><td>[facility]</td><td>06/26/2020</td><td> 1:02PM</td><td>2:02PM</td><td><content ID="encounterDiagnosisID6-0">Routine History and Physical Senior Citizen (65-80 Yrs)</content></td> Attender: Kvng Blackwell MD [facility] 06/26/2020 01:02:00 P M EST - 06/26/2020 02:02:00 PM EST Routine History and Physical Senior Citi sukh (65-80 Yrs)Routine History and Physical Senior Citizen (65-80 Yrs)Routine History and Physical Senior Citizen (65-80 Yrs)Routine History and Physical Senior Citizen (65-80 Yrs)Routine History and Physical Senior Citizen (65-80 Yrs)Routine History and Physical Senior Citizen (65-80 Yrs)Routine History and Physical Senior Citizen (65-80 Yrs) [place] ([facility]) Routine History and Physical Senior Citi sukh (65-80 Yrs) Routine History and Physical Senior Citi sukh (65-80 Yrs) Routine History and Physical Senior Citi sukh (65-80 Yrs) Routine History and Physical Senior Citi sukh (65-80 Yrs) Routine History and Physical Senior Citi sukh (65-80 Yrs) Routine History and Physical Senior Citi sukh (65-80 Yrs) Routine History and Physical Senior Citi sukh (65-80 Yrs) Outpatient<td ID="encounterTypeDescripti onID5">followup</td><td>Kvng Blackwell MD</td><td>[facility], [facility]</td><td>06/26/2020</td><td>1:02PM</td><td>2:02PM</td><td><content ID="encounterDiagnosisID5-0">Actinic Keratosis</content>, <content ID="encounterDiagnosisID5-1">Skin Neoplasm Malignant Carcinoma Basal Cell</content>, <content ID="encounterDiagnosisID5-2">Paroxysmal Atrial Tachycardia</content>, <content ID="encounterDiagnosisID5-3">Polymyalgia Rheumatica</content>, <content ID="encounterDiagnosisID5-4">Essential Hypertension</content>, <content ID="encounterDiagnosisID5- 5">Hypercholesterolemia Essential</content></td> Attender: Kvng Blackwell MD [facility] 06/26/2020 01:02:00 PM EST - 06/26/2020 02:02:00 PM EST Hypercholesterolemia [...] TachycardiaParoxysmal Atrial TachycardiaParoxysmal Atrial TachycardiaParoxysmal Atrial Tachycardia [place] ([facility]) Hypercholesterolemia Essential Essential Hypertension Skin Neoplasm Malignant [...] Tachycardia Paroxysmal Atrial Tachycardia Paroxysmal Atrial Tachycardia <td ID="encounterTypeDescriptionID4">[facility] PE-followup exam</td><td>Kvng Blackwell MD</td><td>[facility], [facility]</td><td>06/26/2020</td><td>1:02PM</td><td>2:02PM</td><td><content ID="encounterDiagnosisID4-0">Routine History and Physical Senior Citizen (65-80 Yrs)</content></td>Outpatient Attender: Kvng Blackwell MD [facility] 06/26/2020 01:02:00 PM EST - 06/26/2020 02:02:00 PM ES T Routine History and Physical Senior Citizen (65-80 Yrs)Routine History and Physical Senior Citizen (65-80 Yrs)Routine History and Physical Senior Citizen (65-80 Yrs)Routine History and Physical Senior Citizen (65-80 Yrs)Routine History and Physical Senior Citizen (65-80 Yrs) [place] ([facility]) Routine History and Physical Senior Citi sukh (65-80 Yrs) Routine History and Physical Senior Citi sukh (65-80 Yrs) Routine History and Physical Senior Citi sukh (65-80 Yrs) Routine History and Physical Senior Citi sukh (65-80 Yrs) Routine History and Physical Senior Citi sukh (65-80 Yrs) Office Visit, Est Pt., Level 4 PC [address] [place] [address] 04/30/2020 12:00:00 AM EST eCW1 ([facility]) Outpatient [address] [facility] [address] 02/01/2020 12:00:00 AM EDT eCW1 ([facility]) Unknown [address] [facility] [address] 01/24/2020 12:00:00 AM EDT eCW1 ([facility]) Outpatient Attender: AYDEN BO_23 [facility] 01/12/2020 0 2:00:00 PM EDT BETZY ([facility]) Outpatient<td ID="encounterTypeDescripti onID6">incident to previous visit- </td><td>Nancy Fox [facility]</td><td>[facility]</td><td>12/22/2019</td><td>9:57AM</td><td>10:44AM</td><td><content ID="encounterDiagnosisID6-0">Polymyalgia Rheumatica</content>, <content ID="encounterDiagnosisID6-1">Paroxysmal Atrial Tachycardia</content>, <content ID="encounterDiagnosisID6-2">Osteoarthritis Knee Left</content>, <content ID="encounterDiagnosisID6-3">Osteopenia</content></td> Attender: Nancy GUERRA [facility], [facility] 12/22/2019 09:57:00 A M EDT - 12/22/2019 10:44:00 AM EDT Osteoarthritis Knee LeftPolymyalgia Rheu maticaOsteoarthritis Knee LeftPolymyalgia RheumaticaOsteoarthritis Knee LeftPolymyalgia RheumaticaOsteoarthritis Knee LeftPolymyalgia RheumaticaOsteoarthritis Knee LeftPolymyalgia RheumaticaOsteoarthritis Knee LeftPolymyalgia RheumaticaOsteoarthritis Knee LeftPolymyalgia RheumaticaOsteopeniaParoxysmal Atrial TachycardiaOsteopeniaParoxysmal Atrial TachycardiaOsteopeniaParoxysmal Atrial TachycardiaOsteopeniaParoxysmal Atrial TachycardiaOsteopeniaParoxysmal Atrial TachycardiaOsteopeniaParoxysmal Atrial TachycardiaOsteopeniaParoxysmal Atrial Tachycardia [place] ([facility]) Osteoarthritis Knee Left Polymyalgia Rheumatica Osteoarthritis Knee [...] IM 08/12/2020 09:27:00 AM EDT completed eCW1 ([facility]) Moderna #2 dose COVID-19(given elsewhere) SARSCOV2 VAC 100MCG/0.5ML IM 08/12/2020 09:27:00 AM EDT completed eCW1 ([facility]) Moderna #2 dose COVID-19(given elsewhere) SARSCOV2 VAC 100MCG/0.5ML IM 08/12/2020 09:27:00 AM EDT completed eCW1 ([facility]) Moderna #2 dose COVID-19(given elsewhere) SARSCOV2 VAC 100MCG/0.5ML IM 08/12/2020 09:27:00 AM EDT completed eCW1 ([facility]) Moderna #2 dose COVID-19(given elsewhere) SARSCOV2 VAC 100MCG/0.5ML IM 08/12/2020 09:27:00 AM EDT completed eCW1 ([facility]) Moderna #2 dose COVID-19(given elsewhere) SARSCOV2 VAC 100MCG/0.5ML IM 08/12/2020 09:27:00 AM EDT completed eCW1 ([facility]) Moderna #2 dose COVID-19(given elsewhere) SARSCOV2 VAC 100MCG/0.5ML IM 08/12/2020 09:27:00 AM EDT completed eCW1 ([facility]) Moderna #2 dose COVID-19(given elsewhere) SARSCOV2 VAC 100MCG/0.5ML IM 08/12/2020 09:27:00 AM EDT completed eCW1 ([facility]) Moderna COVID-19 vaccine 08/09/2020 02:49:00 PM EDT completed <td ID="Gxbwytalcfuel-Nmzfgpczvux-GK8">Moderna COVID-19 vaccine</td><td ID="ImmunizationDose-1">2</td><td>08/09/2020</td><td ID="Pyewaquljsctf-JbcghAdoy-SY7">Left Deltoid</td><td></td><td ID="Njzjhlyfrycqq-Sglqnf-AM5">Complete (Administered)</td><td>[facility]</td><td ID="Yfecqhchnputn-Sfccr-Udrb-Comment-ID1"></td> [facility]) Moderna COVID-19 vaccine 07/12/2020 04:08:00 PM EDT completed <td ID="Kgwbyvpvydmqi-Hkavgyzjokm-AB9">Moderna COVID-19 vaccine</td><td ID="ImmunizationDose-0">1</td><td>07/12/2020</td><td ID="Uofhmlkhcdxvf-XnofxVjzh-AG2">Left Deltoid</td><td></td><td ID="Xqqrfncbkbvja-Nmeyid-CD2">Complete (Administered)</td><td>[facility]</td><td ID="Kmanaoapijhlz-Ribta-Rhwk-Comment-ID0"></td> [place] ([facility]) Moderna #1 dose COVID-19(given elsewhere) SARSCOV2 VAC 100MCG/0.5ML IM 07/12/2020 09:27:00 AM EDT completed eCW1 ([facility]) Moderna #1 dose COVID-19(given elsewhere) SARSCOV2 VAC 100MCG/0.5ML IM 07/12/2020 09:27:00 AM EDT completed eCW1 ([facility]) Moderna #1 dose COVID-19(given elsewhere) SARSCOV2 VAC 100MCG/0.5ML IM 07/12/2020 09:27:00 AM EDT completed eCW1 ([facility]) Moderna #1 dose COVID-19(given elsewhere) SARSCOV2 VAC 100MCG/0.5ML IM 07/12/2020 09:27:00 AM EDT completed eCW1 ([facility]) Moderna #1 dose COVID-19(given elsewhere) SARSCOV2 VAC 100MCG/0.5ML IM 07/12/2020 09:27:00 AM EDT completed eCW1 ([facility]) Moderna #1 dose COVID-19(given elsewhere) SARSCOV2 VAC 100MCG/0.5ML IM 07/12/2020 09:27:00 AM EDT completed eCW1 ([facility]) Moderna #1 dose COVID-19(given elsewhere) SARSCOV2 VAC 100MCG/0.5ML IM 07/12/2020 09:27:00 AM EDT completed eCW1 ([facility]) Moderna #1 dose COVID-19(given elsewhere) SARSCOV2 VAC 100MCG/0.5ML IM 07/12/2020 09:27:00 AM EDT completed eCW1 ([facility]) Medications Medication Brand Name Start Date Product [...] succinate 50 MG Extended Release Oral Tablet [place] ([facility]) Prednisone 1 MG Oral Tablet predniSONE 1 MG Oral Table t predniSONE 1 MG Oral Tablet 12/22/2019 12:00:00 AM EDT active prednisone 1 MG Oral Tablet [place] ([facility]) 24 HR metoprolol succinate 50 MG Extende d Release Oral Tablet Metoprolol Succinate ER 50 MG Oral Tablet Extended Release 24 Hour Metoprolol Succinate ER 50 MG Oral Tablet Extended Release 24 Hour 10/07/2019 12:00:00 AM EDT 1 aborted 24 HR metoprolol succinate 50 MG Extended Release Oral Tablet [place] ([facility]) 0.65 ML Varicella-Zoster Virus Vaccine L roxanne ([employer]) strain [id number] UNT/ML Injection [Zostavax] Zostavax 24567 UNT/0.65ML Suspension Reconstituted Zostavax 05619 UNT/0.65ML Suspension Reconstituted 12/09/2016 12:00:00 AM EDT aborted 0.65 ML varicella-zo ster virus vaccine live ([employer]) strain 39491 UNT/ML Injection [Zostavax] [place] ([facility]) Insurance Providers Payer name Policy type / Coverage type Policy ID Covered green party ID Covered green party's relationship to hernandez Policy Hernandez Plan Information [employer] Other 0 [id number] Self 0 UnitedHealth[employer] Other 0 [id number] Self 0 UnitedHealth[employer] Other 0 [id number] Self 0 UnitedHealth[employer] Other 0 [id number] Self 0 UnitedHealthcare Other 0 [id number] Self 0 UnitedHealthcare Other 0 [id number] Self 0 UnitedHealthcare Other 0 [id number] Self 0 UnitedHealthcare Other 0 [id number] Self 0 UnitedHealthcare Other 0 [id number] Self 0 UnitedHealthcare Other 0 [id number] Self 0 UnitedHealthcare Other 0 [id number] Self 0 UnitedHealthcare Other 0 [id number] Self 0 UnitedHealthcare Other 0 [id number] Self 0 [employer] Other 0 [id number] Self 0 [employer] Other 0 [id number] Self 0 [employer]Health[employer] Other 0 [id number] Self 0 [employer]Health[employer] Other 0 [id number] Self 0 [employer]Health[employer] Other 0 [id number] Self 0 [employer]Health[employer] Other 0 [id number] Self 0 [employer]Health[employer] Other 0 [id number] Self 0 [employer]Health[employer] Other 0 [id number] Self 0 [employer]Health[employer] Other 0 [id number] Self 0 [employer] Other 0 [id number] Self 0 [employer] Other 0 [id number] Self 0 [employer] Medic[employer] Commercial [id number] Self MEDICARE COMPLETE [id number] SP [id number] MEDICARE [id number] SP [id number] MEDICARE COMPLETE [id number] SP [id number] MEDICARE COMPLETE [id number] SP [id number] [facility] [id number] SP [id number] [facility] O [id number] S [id number] [facility] [id number] SP [id number] ANSI-Medicare Part B [id number] ANSI-Medicare Part B [id number] ANSI-Medicare Part B [id number] ANSI-Medicare Part B [id number] MEDICARE COMPLETE [id number] SP [id number] MEDICARE COMPLETE [id number] SP [id number] [facility] Commercial [id number] Self [id number] MEDICARE COMPLETE [id number] SP [id number] Problems, Conditions, and Diagnoses Code Display Name Description Problem Type Effective Dates Data Source(s) 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 Problem 10/11/2020 12:00:00 AM EDT eCW1 ([facility]) C44.111 [id number] 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 Problem 08/23/2020 12:00:00 AM EDT eCW1 ([facility]) Z79.52 [id number] [facility] 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 Prob ander 08/14/2020 12:00:00 AM EDT eCW1 ([facility]) M17.0 [id number] Primary osteoarthritis of both knees Prob ander 02/01/2020 12:00:00 AM EDT eCW1 ([facility]) E11.9 Type 2 diabetes mellitus Type 2 diabetes mellitus Prob ander 01/12/2020 12:00:00 AM EDT [facility] Cardiology) 725 Polymyalgia Rheumatica Polymyalgia Rheumatica Problem 12/22/2019 11:21:00 AM EDT [place] ([facility]) 725 Polymyalgia Rheumatica Polymyalgia Rheumatica Problem 12/22/2019 11:21:00 AM EDT [place] ([facility]) 725 Polymyalgia Rheumatica Polymyalgia Rheumatica Problem 12/22/2019 11:21:00 AM EDT [place] ([facility]) 725 Polymyalgia Rheumatica Polymyalgia Rheumatica Problem 12/22/2019 11:21:00 AM EDT [place] ([facility]) 725 Polymyalgia Rheumatica Polymyalgia Rheumatica Problem 12/22/2019 11:21:00 AM EDT [place] ([facility]) 725 Polymyalgia Rheumatica Polymyalgia Rheumatica Problem 12/22/2019 11:21:00 AM EDT [place] ([facility]) 725 Polymyalgia Rheumatica Polymyalgia Rheumatica Problem 12/22/2019 11:21:00 AM EDT [place] ([facility]) 725 Polymyalgia Rheumatica Polymyalgia Rheumatica Problem 12/22/2019 11:21:00 AM EDT [place] ([facility]) Surgeries/Procedures Procedure Description Date Indications Data Source(s) OFFICE OUTPATIENT VISIT 25 MINUTES 01/30/2021 12:00:00 AM EDT BETZY ([facility]) OFFICE OUTPATIENT VISIT 25 MINUTES 01/15/2021 12:00:00 AM EDT [facility] Cardiology) Med: Derm Lidocaine with Epinephrine Inj ection 1% with 2 ml sodium bicarbonate Intradermally to marked areas 08/23/2020 12:00:00 AM EDT eCW1 ([facility]) MODERNA vaccine, 1st or 2nd dose MODERNA vaccine, 1st or 2nd dose 08/09/2020 12:00:00 AM EDT [place] ([facility]) MODERNA administration, 2nd dose MODERNA administration, 2nd dose 08/09/2020 12:00:00 AM EDT [place] ([facility]) MODERNA administration, 1st dose MODERNA administration, 1st dose 07/12/2020 12:00:00 AM EDT [place] ([facility]) MODERNA vaccine, 1st or 2nd dose MODERNA vaccine, 1st or 2nd dose 07/12/2020 12:00:00 AM EDT [place] ([facility]) no charge procedure no charge procedure 07/10/2020 12:00:00 AM EDT [place] ([facility]) Annual depression screening, 15 minutes MC-Annual depr ession screening- 15 min. (Distinct Seperate service-same day) 06/26/2020 12:00:00 AM [facility] ([facility]) Annual wellness visit, includes a person alized prevention plan of service (pps), subsequent visit - subseq't annual wellness exam(1 yr after Initial) 06/26/2020 12:00:00 AM [facility] ([facility]) Annual wellness visit, includes a person alized prevention plan of service (pps), subsequent visit MC- subseq't annual wellness exam(1 yr after Initial) 06/26/2020 12:00:00 AM [facility] ([facility]) Annual depression screening, 15 minutes MC-Annual depr ession screening- 15 min. (59) 06/26/2020 12:00:00 AM [facility] ([facility]) Fasting Lipid Profile Fasting Lipid Profile 06/21/2020 12:00:00 AM [facility] ([facility]) CMP-Complete Metabolic Profile CMP-Complete Metabolic Profil e 06/21/2020 12:00:00 AM [facility] ([facility]) CBC CBC 06/21/2020 12:00:00 AM EST [facility] ([facility]) Venipuncture (routine) Venipuncture (routine) 06/21/2020 12:00:00 A M [facility] ([facility]) Echocardiography, Tranthoracic Complete Image Documentation 01/26/2020 12:00:00 AM EDT MEDRA ([facility]) Results ID Date Data Source ERYTHROCYTE SEDIMENTATION RATE 12/27/2020 12:00:00 AM EDT eC W1 ([facility]) Name Value Range Interpretation Code Description Data Nicole rce(s) Supporting Document(s) 7 0-30 ERYTHROCYTE SEDIMENTATION RATE eCW1 ([facility]) ID Date Data Source C REACTIVE PROTEIN QUANTITATIV (At [facility]) 12/27/2020 12:00 :00 AM EDT eCW1 ([facility]) Name Value Range Interpretation Code Description Data Nicole rce(s) Supporting Document(s) 0.67 0.00-0.30 C REACTIVE PROTEIN QUANTI TATIV eCW1 ([facility]) ID Date Data Source Comprehensive Metabolic Profile (CMP) 12/27/2020 12:00:00 AM EDT eCW1 ([facility]) Name Value Range Interpretation Code Description Data Nicole rce(s) Supporting Document(s) 112 70-100 GLUCOSE, FASTING eCW1 ([facility]) 0.88 0.55-1.30 CREATININE FOR GFR eCW1 ([facility]) 17 7-18 BLOOD UREA NITROGEN eCW1 ([facility]) 141 136-145 SODIUM LEVEL eCW1 ([facility]) > 60.0 >39 GLOMERULAR FILTRATION RATE eCW 1 ([facility]) 4.3 3.5-5.1 POTASSIUM SERUM eCW1 ([facility]) 105 98-107 CHLORIDE LEVEL eCW1 ([facility]) 30 21-32 CARBON DIOXIDE LEVEL eCW1 ([facility]) 9.0 8.8-10.2 CALCIUM LEVEL eCW1 ([facility]) 15 7-37 AST/SGOT eCW1 ([facility]) 21 12-78 ALT/SGPT eCW1 ([facility]) 62 45-117 ALKALINE PHOSPHATASE eCW1 ([facility]) 0.4 0.2-1.0 BILIRUBIN,TOTAL eCW1 ([facility]) 6.6 6.4-8.2 TOTAL PROTEIN eCW1 ([facility]) 3.6 3.2-5.2 ALBUMIN eCW1 ([facility]) 1.2 1.2-2.2 ALBUMIN/GLOBULIN RATIO eCW1 ([facility]) ID Date Data Source CBC with Differential 12/27/2020 12:00:00 AM EDT eCW1 ([facility]) Name Value Range Interpretation Code Description Data Nicole rce(s) Supporting Document(s) 5.4 4.0-10.0 WHITE BLOOD COUNT eCW1 ([facility]) 4.38 4.00-5.40 RED BLOOD COUNT eCW1 ([facility]) 43.1 36.0-47.0 HEMATOCRIT eCW1 ([facility]) 13.5 12.0-15.5 HEMOGLOBIN eCW1 ([facility]) 98.4 80.0-96.0 MEAN CORPUSCULAR VOLUME e CW1 ([facility]) 31.3 32.0-36.5 MEAN CORPUSCULAR HGB CONC eCW1 ([facility]) 30.8 27.0-33.0 MEAN CORPUSCULAR HEMOGLOB IN eCW1 ([facility]) 220 150-450 PLATELET COUNT, AUTOMATED eCW1 ([facility]) 12.4 11.5-14.5 RED CELL DISTRIBUTION WID TH eCW1 ([facility]) 45.0 36.0-66.0 NEUTROPHILS % eCW1 ([facility]) 32.5 24.0-44.0 LYMPH % eCW1 ([facility]) 4.2 0.0-3.0 EOS % eCW1 ([facility]) 16.6 2.0-8.0 MONO % eCW1 ([facility]) 1.1 0.0-1.0 BASO % eCW1 ([facility]) 2.4 1.5-8.5 NEUTROPHILS # eCW1 ([facility]) 1.8 1.5-5.0 LYMPH # eCW1 ([facility]) 0.9 0.0-0.8 MONO # eCW1 ([facility]) 0.2 0.0-0.5 EOS # eCW1 ([facility]) 0.1 0.0-0.2 BASO # eCW1 ([facility]) ID Date Data Source VITAMIN D 25-HYDROXY 08/14/2020 12:00:00 AM EDT eCW1 ([facility]) Name Value Range Interpretation Code Description Data Nicole rce(s) Supporting Document(s) 30.8 30.0-100.0 TOTAL 25(OH) VITAMIN D eC W1 ([facility]) ID Date Data Source [id number] 06/21/2020 08:55:00 AM EST OTTO ([facility]) Name Value Range Interpretation Code Description Data Nicole rce(s) Supporting Document(s) Dir. LDL 126 mg/dl Dir. LDL [place] ([facility]) Note: Responsible Observer: KM HDL 59 mg/dl Above high normal HDL [place] ([facility]) Note: Responsible Observer: KM Cholesterol [Moles/volume] in Pericardial fluid 234 mg/dl Above high normal Cholesterol [place] ([facility]) Note: Responsible Observer: KM Triglycerides 145 mg/dl Triglycerides [place] ([facility]) Note: Responsible Observer: KM ID Date Data Source [id number] 06/21/2020 08:55:00 AM EST [place] ([facility]) Name Value Range Interpretation Code Description Data Nicole rce(s) Supporting Document(s) Alkaline Phos 56 IU/L Alkaline Phos [place] ([facility]) Note: Responsible Observer: KM Albumin [Mass/volume] in Blood by Bromocresol purple ( BCP) dye binding method 4.2 g/dl Albumin [place] ([facility]) Note: Responsible Observer: KM ALT 12 IU/L ALT [place] ([facility]) Note: Responsible Observer: KM Urea nitrogen [Moles/volume] in Blood 22 mg/dl Abo ve high normal Urea Nitrogen [place] ([facility]) Note: Responsible Observer: KM AST 13 IU/L AST [place] ([facility]) Note: Responsible Observer: KM CO2 24 mmol/L CO2 [place] ([facility]) Note: Responsible Observer: KM Chloride [Moles/volume] in Serum, Plasma or Blood 106 mmol/L Chloride [place] ([facility]) Note: Responsible Observer: KM Calcium [Moles/volume] in Urine collected for unspecified durati on 8.4 mg/dl Calcium [place] ([facility]) Note: Responsible Observer: KM Creatinine [Moles/volume] in Vitreous fluid 0.9 mg/dl Creatinine [place] ([facility]) Note: Responsible Observer: KM Glucose [Mass/volume] in Urine collected for unspecified duration 1 02 mg/dl Glucose [place] ([facility]) Note: Responsible Observer: KM Potassium [Mass/volume] in Blood 5 mmol/L Pot assium [place] ([facility]) Note: Responsible Observer: KM Sodium [Moles/volume] in Serum, Plasma or Blood 143 mmol/L Sodium [place] ([facility]) Note: Responsible Observer: KM EGFR - AfricanAm > 60 N/A [facility] - AfricanAm [facility] Note: Responsible Observer: KM EGFR - Non AF AM > 60 N/A EGFR - Non AF AM [facility] Note: Responsible Observer: KM Total Protein 6.5 g/dl Total Protein [place] ([facility]) Note: Responsible Observer: KM Total Bilirubin 0.5 mg/dl Total Bilirubin [facility] ([facility]) Note: Responsible Observer: KM ID Date Data Source [id number] 06/21/2020 08:55:00 AM EST [place] ([facility]) Name Value Range Interpretation Code Description Data Nicole rce(s) Supporting Document(s) GRAN# 3.3 /mm3 GRAN# [place] ([facility]) Note: Responsible Observer: KM GRAN% 56.6 % GRAN% [place] ([facility]) Note: Responsible Observer: KM LY# 1.8 /mm3 LY# [place] ([facility]) Note: Responsible Observer: KM HCT 40.4 % HCT [place] ([facility]) Note: Responsible Observer: KM HGB 13.1 g/dl HGB [place] ([facility]) Note: Responsible Observer: KM LY% 32.0 % LY% [place] ([facility]) Note: Responsible Observer: KM MCH 31.3 pg MCH [place] ([facility]) Note: Responsible Observer: KM MCHC 32.5 G/DL MCHC [place] ([facility]) Note: Responsible Observer: KM MID# 0.7 /mm3 MID# [place] ([facility]) Note: Responsible Observer: KM MID% 11.4 % Above high normal MID% [place] ([facility]) Note: Responsible Observer: KM MCV 96.4 um3 Above high normal MCV [place] ([facility]) Note: Responsible Observer: KM RBC 4.19 /mm3 RBC [place] ([facility]) Note: Responsible Observer: KM PLT 188 /mm3 PLT [place] ([facility]) Note: Responsible Observer: KM MPV 10.0 um3 MPV [place] ([facility]) Note: Responsible Observer: KM WBC 5.8 /mm3 WBC [place] ([facility]) Note: Responsible Observer: KM RDW 15.1 % Above high normal RDW [place] ([facility]) Note: Responsible Observer: KM ID Date Data Source [id number] 01/26/2020 01:21:00 PM EDT MEDENT ([facility]) Name Value Range Interpretation Code Description Data Nicole rce(s) Supporting Document(s) Echocardiogram Laboratory test result ME DENT ([facility]) Procedure Social History Code Duration Value Status Description Data Source(s ) Smoking 12/26/2020 12:00:00 AM EDT Never Smoker completed Never S moker eCW1 ([facility]) Smoking 10/19/2020 12:00:00 AM EDT Never Smoker completed Never S moker eCW1 ([facility]) Smoking 10/19/2020 12:00:00 AM EDT Never Smoker completed Never S moker eCW1 ([facility]) Smoking 10/19/2020 12:00:00 AM EDT Never Smoker completed Never S moker eCW1 ([facility]) Smoking 10/19/2020 12:00:00 AM EDT Never Smoker completed Never S moker eCW1 ([facility]) Smoking 10/19/2020 12:00:00 AM EDT Never Smoker completed Never S moker eCW1 ([facility]) Smoking 10/19/2020 12:00:00 AM EDT Never Smoker completed Never S moker eCW1 ([facility]) Smoking 10/19/2020 12:00:00 AM EDT Never Smoker completed Never S moker eCW1 ([facility]) Smoking 10/11/2020 12:00:00 AM EDT Never Smoker completed Never S moker eCW1 ([facility]) Smoking 08/23/2020 12:00:00 AM EDT Never Smoker completed Never S moker eCW1 ([facility]) Smoking 08/23/2020 12:00:00 AM EDT Never Smoker completed Never S moker eCW1 ([facility]) Smoking 08/23/2020 12:00:00 AM EDT Never Smoker completed Never S moker eCW1 ([facility]) Smoking 08/14/2020 12:00:00 AM EDT Never Smoker completed Never S moker eCW1 ([facility]) Smoking 04/30/2020 12:00:00 AM EST Never Smoker completed Never S moker eCW1 ([facility]) Smoking 04/30/2020 12:00:00 AM EST Never Smoker completed Never S moker eCW1 ([facility]) Smoking 02/01/2020 12:00:00 AM EDT Never Smoker completed Never S moker eCW1 ([facility]) Vital Signs ID Date Data Source UNK Name Value Range Interpretation Code Description Data Source(s) Systolic blood pressure 135 mm[Hg] 135 mm[Hg] JORGE A ([facility]) Diastolic blood pressure 76 mm[Hg] 76 mm[Hg] BETZY ([facility]) Heart rate 87 /min 87 /min BETZY ([facility]) Body weight 175.00 [lb_av] 175.00 [lb_av] DANILO Weems ([facility]) Systolic blood pressure 142 mm[Hg] 142 mm[Hg] M JORGE A ([facility]) retake Body mass index (BMI) [Ratio] 33.1 kg/m2 33.1 k g/m2 BETZY ([facility]) Diastolic blood pressure 78 mm[Hg] 78 mm[Hg] BETZY ([facility]) retake Systolic blood pressure 168 mm[Hg] 168 mm[Hg] M EDENT ([facility]) x2 Diastolic blood pressure 90 mm[Hg] 90 mm[Hg] MEDENT ([facility]) x2 Heart rate 72 /min 72 /min MEDENT ([facility]) Body height 61 [in_i] 61 [in_i] MEDENT ([facility]) 5'1" Body weight 175.00 [lb_av] 175.00 [lb_av] MEDEN T ([facility]) Systolic blood pressure 136 mm[Hg] 136 mm[Hg] G REENWAY ([facility]) Body surface area Derived from formula 1.80 m2 1.80 m2 [place] ([facility]) Diastolic blood pressure 78 mm[Hg] 78 mm[Hg] [place] ([facility]) Heart rate 62 /min 62 /min [place] ([facility]) Respiratory rate 22 /min 22 /min [place] ([facility]) Body height 60.75 [in_i] 60.75 [in_i] [place] ([facility]) Body weight 179 [lb_av] 179 [lb_av] [place] ([facility]) Body mass index (BMI) [Ratio] 34.1 kg/m2 34.1 k g/m2 [place] ([facility]) Body height 60 [in_i] 60 [in_i] eCW1 ([facility]) Body mass index (BMI) [Ratio] 35.38 kg/m2 35.38 kg/m2 eCW1 ([facility]) Body weight 181.2 [lb_av] 181.2 [lb_av] eCW1 ([facility]) Body weight 82.19 kg 82.19 kg eCW1 ([facility]) Heart rate 74 /min 74 /min eCW1 ([facility]) Respiratory rate 18 /min 18 /min eCW1 ([facility]) Body temperature 97.1 [degF] 97.1 [degF] eCW1 ( [facility]) Systolic blood pressure 124 mm[Hg] 124 mm[Hg] e CW1 ([facility]) Diastolic blood pressure 68 mm[Hg] 68 mm[Hg] eCW1 ([facility]) Body weight 188.6 [lb_av] 188.6 [lb_av] eCW1 ([facility]) Body weight 85.5 kg 85.5 kg eCW1 ([facility]) Body height 60 [in_i] 60 [in_i] eCW1 ([facility]) Body mass index (BMI) [Ratio] 36.83 kg/m2 36.83 kg/m2 eCW1 ([facility]) Heart rate 67 /min 67 /min eCW1 ([facility]) Respiratory rate 18 /min 18 /min eCW1 ([facility]) Body temperature 97.2 [degF] 97.2 [degF] eCW1 ( [facility]) Systolic blood pressure 130 mm[Hg] 130 mm[Hg] e CW1 ([facility]) Diastolic blood pressure 88 mm[Hg] 88 mm[Hg] eCW1 ([facility]) Body weight 187.6 [lb_av] 187.6 [lb_av] eCW1 ([facility]) Systolic blood pressure 123 mm[Hg] 123 mm[Hg] e CW1 ([facility]) Body height 60 [in_i] 60 [in_i] eCW1 ([facility]) Diastolic blood pressure 81 mm[Hg] 81 mm[Hg] eCW1 ([facility]) Body mass index (BMI) [Ratio] 36.63 kg/m2 36.63 kg/m2 eCW1 ([facility]) Body weight 189 [lb_av] 189 [lb_av] eCW1 ([facility]) Body height 60 [in_i] 60 [in_i] eCW1 ([facility]) Body mass index (BMI) [Ratio] 36.91 kg/m2 36.91 kg/m2 eCW1 ([facility]) Systolic blood pressure 120 mm[Hg] 120 mm[Hg] e CW1 ([facility]) Diastolic blood pressure 78 mm[Hg] 78 mm[Hg] eCW1 ([facility]) Body weight 189.0 [lb_av] 189.0 [lb_av] eCW1 ([facility]) Body weight 85.7 kg 85.7 kg eCW1 ([facility]) Body height 60 [in_i] 60 [in_i] eCW1 ([facility]) Body mass index (BMI) [Ratio] 36.91 kg/m2 36.91 kg/m2 eCW1 ([facility]) Heart rate 74 /min 74 /min eCW1 ([facility]) Respiratory rate 18 /min 18 /min eCW1 ([facility]) Body temperature 97.5 [degF] 97.5 [degF] eCW1 ( [facility]) Systolic blood pressure 128 mm[Hg] 128 mm[Hg] e CW1 ([facility]) Diastolic blood pressure 70 mm[Hg] 70 mm[Hg] eCW1 ([facility]) Systolic blood pressure 159 mm[Hg] 159 mm[Hg] M EDENT ([facility]) Diastolic blood pressure 71 mm[Hg] 71 mm[Hg] MEDENT ([facility]) Body weight 185.00 [lb_av] 185.00 [lb_av] MEDEN T ([facility]) Body temperature 97.8 [degF] 97.8 [degF] MEDENT ([facility]) Systolic blood pressure 146 mm[Hg] 146 mm[Hg] G COCO ([facility]) recheck Diastolic blood pressure 84 mm[Hg] 84 mm[Hg] OTTO ([facility]) recheck Diastolic blood pressure 92 mm[Hg] 92 mm[Hg] OTTO ([facility]) Systolic blood pressure 170 mm[Hg] 170 mm[Hg] G COCO ([facility]) Heart rate 68 /min 68 /min OTTO ([facility]) Body height 60.75 [in_i] 60.75 [in_i] [place] ([facility]) Body weight 185 [lb_av] 185 [lb_av] [place] ([facility]) Body mass index (BMI) [Ratio] 35.2 kg/m2 35.2 k g/m2 [place] ([facility]) Body surface area Derived from formula 1.82 m2 1.82 m2 [place] ([facility]) Systolic blood pressure 142 mm[Hg] 142 mm[Hg] [facility] MD recheck Diastolic blood pressure 82 mm[Hg] 82 mm[Hg] [place] ([facility]) MD recheck Systolic blood pressure 169 mm[Hg] 169 mm[Hg] [facility] Diastolic blood pressure 80 mm[Hg] 80 mm[Hg] [place] ([facility]) Heart rate 68 /min 68 /min [place] ([facility]) Body mass index (BMI) [Ratio] 35.2 kg/m2 35.2 k g/m2 [place] ([facility]) Body height 60.75 [in_i] 60.75 [in_i] [place] ([facility]) Body surface area Derived from formula 1.82 m2 1.82 m2 [place] ([facility]) Body weight 185 [lb_av] 185 [lb_av] [place] ([facility]) Body mass index (BMI) [Ratio] 35.2 kg/m2 35.2 k g/m2 [place] ([facility]) Systolic blood pressure 169 mm[Hg] 169 mm[Hg] [facility] Diastolic blood pressure 80 mm[Hg] 80 mm[Hg] [place] ([facility]) Heart rate 68 /min 68 /min [place] ([facility]) Body height 60.75 [in_i] 60.75 [in_i] [place] ([facility]) Body weight 185 [lb_av] 185 [lb_av] [place] ([facility]) Body surface area Derived from formula 1.82 m2 1.82 m2 [place] ([facility]) Systolic blood pressure 169 mm[Hg] 169 mm[Hg] [facility] Diastolic blood pressure 80 mm[Hg] 80 mm[Hg] [place] ([facility]) Heart rate 68 /min 68 /min [place] ([facility]) Body height 60.75 [in_i] 60.75 [in_i] [place] ([facility]) Body weight 185 [lb_av] 185 [lb_av] [place] ([facility]) Body mass index (BMI) [Ratio] 35.2 kg/m2 35.2 k g/m2 [place] ([facility]) Body surface area Derived from formula 1.82 m2 1.82 m2 [place] ([facility]) Body weight 83.7 kg 83.7 kg eCW1 ([facility]) Body weight 184.6 [lb_av] 184.6 [lb_av] eCW1 ([facility]) Body height 60 [in_i] 60 [in_i] eCW1 ([facility]) Respiratory rate 18 /min 18 /min eCW1 ([facility]) Body mass index (BMI) [Ratio] 36.05 kg/m2 36.05 kg/m2 eCW1 ([facility]) Heart rate 76 /min 76 /min eCW1 ([facility]) Body temperature 97.6 [degF] 97.6 [degF] eCW1 ( [facility]) Systolic blood pressure 122 mm[Hg] 122 mm[Hg] e CW1 ([facility]) Diastolic blood pressure 62 mm[Hg] 62 mm[Hg] eCW1 ([facility]) Body weight 176.6 [lb_av] 176.6 [lb_av] eCW1 ([facility]) Body weight 80.1 kg 80.1 kg eCW1 ([facility]) Body height 60 [in_i] 60 [in_i] eCW1 ([facility]) Body mass index (BMI) [Ratio] 34.49 kg/m2 34.49 kg/m2 eCW1 ([facility]) Heart rate 74 /min 74 /min eCW1 ([facility]) Respiratory rate 18 /min 18 /min eCW1 ([facility]) Body temperature 97.2 [degF] 97.2 [degF] eCW1 ( [facility]) Systolic blood pressure 128 mm[Hg] 128 mm[Hg] e CW1 ([facility]) Diastolic blood pressure 70 mm[Hg] 70 mm[Hg] eCW1 ([facility]) Heart rate 72 /min 72 /min MEDENT ([facility]) irregular Body height 60 [in_i] 60 [in_i] MEDENT ([facility]) 5'0" Systolic blood pressure 130 mm[Hg] 130 mm[Hg] M EDENT ([facility]) Diastolic blood pressure 82 mm[Hg] 82 mm[Hg] MEDENT ([facility]) Body weight 175.00 [lb_av] 175.00 [lb_av] MEDEN T ([facility]) Body mass index (BMI) [Ratio] 34.2 kg/m2 34.2 k g/m2 [facility]) Heart rate 56 /min 56 /min [place] ([facility]) Body mass index (BMI) [Ratio] 33.3 kg/m2 33.3 k g/m2 [place] ([facility]) Diastolic blood pressure 78 mm[Hg] 78 mm[Hg] [place] ([facility]) Respiratory rate 20 /min 20 /min [place] ([facility]) Body height 60.75 [in_i] 60.75 [in_i] [place] ([facility]) Body weight 175 [lb_av] 175 [lb_av] [place] ([facility]) Body surface area Derived from formula 1.78 m2 1.78 m2 [place] ([facility]) Systolic blood pressure 134 mm[Hg] 134 mm[Hg] [facility] Patient Treatment Plan of Care Planned Activity Planned Date Details Description Data Source (s) 24 HR metoprolol succinate 50 MG Extended Release Oral Tablet 10/05/2020 12:00:00 AM [facility] ([facility]) 24 HR metoprolol succinate 50 MG Extended Release Oral Tablet 10/07/2019 12:00:00 AM [facility] ([facility]) 0.65 ML Varicella-Zoster Virus Vaccine L roxanne ([employer]) strain 13091 UNT/ML Injection [Zostavax] 12/09/2016 12:00:00 AM [facility] ([facility])
[2021-02-17 13:50] LABS: BASO % 0.7 % (0.0-1.0); EOS # 0.1 10^3/uL (0.0-0.5); EOS % 0.9 % (0.0-3.0); HEMATOCRIT 39.7 % (36.0-47.0); HEMOGLOBIN 12.8 g/dl (12.0-15.5); LYMPH % 18.1 % (24.0-44.0); MEAN CORPUSCULAR HGB CONC 32.2 g/dl (32.0-36.5); MEAN CORPUSCULAR VOLUME 96.1 fl (80.0-96.0); MONO # 0.9 10^3/uL (0.0-0.8); NEUTROPHILS # 3.7 10^3/uL (1.5-8.5); NEUTROPHILS % 65.1 % (36.0-66.0); PLATELET COUNT, AUTOMATED 191 10^3/uL (150-450); RED BLOOD COUNT 4.13 10^6/uL (4.00-5.40); WHITE BLOOD COUNT 5.7 10^3/uL (4.0-10.0)
[2021-02-17] MEDS ORDERED: ISOVUE-370 76% 100ML VIAL As Ordered ONE (13:53)
[2021-02-17 14:16] LABS: ERYTHROCYTE SEDIMENTATION RATE 19 mm/hr (0-30)
--- NOTE | 2021-02-17 15:13 | REPVR ---
PROCEDURE INFORMATION: Exam: CT Neck With Contrast Exam date and time: 02/17/2021 2:18 PM Age: 81 years old Clinical indication: Other: L ear redness/swelling, redness into neck TECHNIQUE: Imaging protocol: Computed tomography images of the neck with contrast. Radiation optimization: All CT scans at this facility use at least one of these dose optimization techniques: automated exposure control; mA and/or kV adjustment per patient size (includes targeted exams where dose is matched to clinical indication); or iterative reconstruction. Contrast material: ISOVUE 370; Contrast volume: 75 ml; Contrast route: INTRAVENOUS (IV); COMPARISON: No relevant prior studies available. FINDINGS: Paranasal sinuses: There is mild mucosal thickening in inferior maxillary sinuses. Nasopharynx: Unremarkable. Oropharynx: Unremarkable. No significant tonsillar enlargement. Hypopharynx: Unremarkable. Larynx: Unremarkable. Normal epiglottis. Retropharyngeal space: Unremarkable. Submandibular/Parotid glands: No mass. Thyroid: Normal. No enlarged or calcified nodules. Lymph nodes: Unremarkable. No lymphadenopathy. Trachea: Visualized trachea is unremarkable. Lungs: Unremarkable as visualized. Bones/joints: Degenerative changes are noted in spine with neural foraminal narrowing mainly at C5-C6 where there is also small disc osteophyte complex. Vasculature: Bilateral cervical carotid and vertebral arteries are widely patent. Soft tissues: There is swelling of the ear / auricle consistent with cellulitis. There is inflammation in the adjacent periauricular soft tissues lateral to the parotid gland with minimal secondary inflammation in the lateral superficial aspect of the parotid gland. There is no drainable abscess. IMPRESSION: Cellulitis involving left ear and periauricular region with mild secondary inflammation lateral superficial aspect of parotid gland. No drainable abscess.. Electronically signed by: Eda Thornton On 02/17/2021 15:12:42 PM
[2021-02-17] MEDS ORDERED: CLINDAMYCIN 600 MG in IV 1 EA IV ONE (15:30)
--- NOTE | 2021-02-17 15:50 | HPEPDOC ---
[facility] Medical History & Physical Date of Admission Feb 17, 2021 Date of Service: Feb 17, 2021 History and Physical CHIEF COMPLAINT: outer ear pain HISTORY OF PRESENT ILLNESS: 81 year old female with past medical history in cluding HTN and PMR, follows with rheumatology, presents for 3 day history of worsening outer ear pain, erythema. She denies any trauma to her ear. She denies any hearing loss, dysphagia or drooling. She denies chest pain, shortness of breath, headaches, abdominal pain, N/V/D. PAST MEDICAL HISTORY: #HTN #PMR SOCIAL HISTORY: Reviewed and non-contributory. Denies nicotine or alcohol use. FAMILY HISTORY: Reviewed and non-contributory. ALLERGIES: Please see below. REVIEW OF SYSTEMS: Negative except as per HPI. HOME MEDICATIONS: Please see below. PHYSICAL EXAMINATION: Vital Signs: reviewed General: NAD, lying comfortably in bed HEENT: left ear erythematous, swollen, no discharge noted, no hearing deficits, mild tenderness Neck: some extension of erythema to left lateral neck, minimal tenderness Chest: lungs CTA B/L Heart: +S1S2, RRR Abd: soft, NT, ND, +BS Ext: no edema Skin: no rashes MSK: full ROM at large joints Neuro: no gross focal deficits Psych: AAOx3 LABORATORY DATA: See below. MICROBIOLOGY: Please see below. A/P: 81 year old female admitted for 3 day history worsening outer ear cellulitis. #cellulitis - drug allergies to PCN, cephalosporin and doxy - clindamycin for now - acidophilus q meals #HTN - continue home meds - metoprolol #PMR - continue home meds - prednisone #DVT prophylaxis - mechanical Vital Signs Vital Signs Date Time Temp Pulse Resp B/P (MAP) Pulse Ox O2 Delivery O2 Flow Rate FiO2 02/17/21 13:10 18 02/17/21 08:17 96.6 72 96 Room Air Laboratory Data Labs 24H Laboratory Tests 2 02/17/21 13:33: Immature Granulocyte % (Auto) 0.2, Neutrophils (%) (Auto) 65.1, Lymphocytes (%) (Auto) 18.1L, Monocytes (%) (Auto) 15.0H, Eosinophils (%) (Auto) 0.9, Basophils (%) (Auto) 0.7, Neutrophils # (Auto) 3.7, Lymphocytes # (Auto) 1.0L, Monocytes # (Auto) 0.9H, Eosinophils # (Auto) 0.1, Basophils # (Auto) 0.0, Nucleated Red Blood Cells % (auto) 0.0, Erythrocyte Sedimentation Rate 19, C-Reactive Protein, Quantitative 4.47H 02/17/21 13:41: POC Glucose (Misc Panel) 108H, POC Sodium (Misc Panel) 138, POC Potassium (Misc Panel) 3.8, POC Chloride (Misc Panel) 101, POC Total CO2 (Misc Panel) 24.0, POC Blood Urea Nitrogen (Misc Panel 11, POC Ionized Calcium (Misc Panel) 4.5, POC Creatinine (Misc Panel) 0.7, POC Hematocrit (Misc Panel) 40.0 CBC/BMP Laboratory Tests 02/17/21 13:33 Microbiology Microbiology 02/17/21 Blood Culture, Received Pending 02/17/21 Blood Culture, Received Pending Home Medications Scheduled Calcium Carbonate (Calcium) 600 Mg Tablet, 600 MG PO DAILY Cholecalciferol (Vitamin D3) (Vitamin D3) 1,000 Unit Tablet, 1,000 UNITS PO DAILY Metoprolol Succinate (Metoprolol Succinate) 50 Mg Tab.er.24h, 50 MG PO DAILY Prednisone (Prednisone) 1 Mg Tablet, 1.5 MG PO DAILY Allergies Coded Allergies: Penicillins (Verified Allergy, Unknown, 03/20/19) hives cefadroxil (Verified Allergy, Unknown, 03/20/19) doxycycline (Verified Allergy, Unknown, 03/20/19) hives egg (Verified Allergy, Unknown, 02/17/21) A-FIB/CHADSVASC A-FIB History Current/History of A-Fib/PAF?: No ANTHONY OROZCO MD Feb 17, 2021 15:50
--- OUTSIDE RECORDS SUMMARY | 2021-02-17 16:01 | CCD ---
Author Author [facility] Organization [facility] Address Unknown Phone Unavailable Care Team Providers Care Theatre Instructor Name Role Phone Hamo, M Virginia CONTINUOUS IMPROVEMENT BLACK BELT Unavailable Unavailable Hamo, M Virginia CONTINUOUS IMPROVEMENT BLACK BELT Unavailable Unavailable Hamo, M Virginia CONTINUOUS IMPROVEMENT BLACK BELT Unavailable Unavailable Hamo, M [place] CONTINUOUS IMPROVEMENT BLACK BELT Unavailable Unavailable Hamo, M [place] CONTINUOUS IMPROVEMENT BLACK BELT Unavailable Unavailable Hamo, M [place] CONTINUOUS IMPROVEMENT BLACK BELT Unavailable Unavailable Hamo, M [place] CONTINUOUS IMPROVEMENT BLACK BELT Unavailable Unavailable Hamo, M [place] CONTINUOUS IMPROVEMENT BLACK BELT Unavailable Unavailable Hamo, M [place] CONTINUOUS IMPROVEMENT BLACK BELT Unavailable Unavailable Hamo, M [place] CONTINUOUS IMPROVEMENT BLACK BELT Unavailable Unavailable Hamo, M [place] CONTINUOUS IMPROVEMENT BLACK BELT Unavailable Unavailable Hamo, M [place] CONTINUOUS IMPROVEMENT BLACK BELT Unavailable Unavailable Hamo, M [place] CONTINUOUS IMPROVEMENT BLACK BELT Unavailable Unavailable Hamo, M [place] CONTINUOUS IMPROVEMENT BLACK BELT Unavailable Unavailable Hamo, M [place] CONTINUOUS IMPROVEMENT BLACK BELT Unavailable Unavailable Hamo, M [place] CONTINUOUS IMPROVEMENT BLACK BELT Unavailable Unavailable Hamo, M [place] CONTINUOUS IMPROVEMENT BLACK BELT Unavailable Unavailable Hamo, M [place] CONTINUOUS IMPROVEMENT BLACK BELT Unavailable Unavailable Hamo, M [place] CONTINUOUS IMPROVEMENT BLACK BELT Unavailable Unavailable Fox, Nancy PA Unavailable Unavailable [...] Unavailable LyndaSierra kearney MD Unavailable Unavailable LyndaSierra keanrey MD Unavailable Unavailable LyndaSierra kearney MD Unavailable [...] Calderon MD Unavailable Unavailable MEDENT_23, NA Unavailable [phone] Hegard, Zuleima VENDOR REPRESENTATIVES Unavailable Unavailable Hegard, Zuleima VENDOR REPRESENTATIVES Unavailable Unavailable Hegard, Zuleima VENDOR REPRESENTATIVES Unavailable Unavailable Hegard, Zuleima VENDOR REPRESENTATIVES Unavailable Unavailable Hegard, Zuleima VENDOR REPRESENTATIVES Unavailable Unavailable Hegard, Zuleima VENDOR REPRESENTATIVES Unavailable Unavailable Hegard, Zuleima VENDOR REPRESENTATIVES Unavailable Unavailable Hegard, Zuleima VENDOR REPRESENTATIVES Unavailable Unavailable Hegard, Zuleima VENDOR REPRESENTATIVES Unavailable Unavailable Hegard, Zuleima VENDOR REPRESENTATIVES Unavailable Unavailable Hegard, Zuleima VENDOR REPRESENTATIVES Unavailable Unavailable Hegard, Zuleima VENDOR REPRESENTATIVES Unavailable Unavailable Hegard, Zuleima VENDOR REPRESENTATIVES Unavailable Unavailable Hegard, Zuleima VENDOR REPRESENTATIVES Unavailable Unavailable Hegard, Zuleima VENDOR REPRESENTATIVES Unavailable Unavailable Hegard, Zuleima VENDOR REPRESENTATIVES Unavailable Unavailable Hegard, Zuleima VENDOR REPRESENTATIVES Unavailable Unavailable Re-disclosure Warning The records that [...] is protected by Article 27-F of the [facility] Public Health law. If you continue you may have access to information: Regarding HIV / AIDS; Provided by facilities licensed or operated by the [facility] Office of Mental Health; or Provided by the [facility] Office for People With Developmental Disabilities. If such information is present, then the following [facility] mandated warning applies: This information has been [...] Data Source(s ) Outpatient Attender: Zuleima Manzano [facility] Main Office 1 01:15:00 PM EDT MEDENT ([facility]) Outpatient Attender: Virginia Gross NP [facility] 01/15 03:15:00 PM EDT MEDENT ([facility] Cardiology) Outpatient<td ID="encounterTypeDescripti onID0">incident to previous visit- </td><td>Nancy Fox RPA</td><td>[facility]</td><td>01/10/2021</td><td>1:16PM</td><td>2:23PM</td><td><content ID="encounterDiagnosisID0-0">Polymyalgia Rheumatica</content>, <content ID="encounterDiagnosisID0-1">Osteopenia</content>, <content ID="encounterDiagnosisID0-2">Paroxysmal Atrial Tachycardia</content>, <content ID="encounterDiagnosisID0-3">Osteoarthritis Knee Left</content></td> Attender: Nancy GUERRA [facility] 01/10/2021 01:16:00 P M EDT - 01/10/2021 02:23:00 PM EDT Osteoarthritis Knee LeftPolymyalgia RheumaticaParoxysmal Atrial TachycardiaOsteopenia [place] ([facility]) Osteoarthritis Knee Left Polymyalgia Rheumatica Paroxysmal Atrial Tachycardia Osteopenia Outpatient [address] [facility] [address] 12/26/2020 12:00:00 AM EDT eCW1 ([facility]) Unknown [address] [facility] [place] [address] 11/30/2020 12:00:00 AM EDT eCW1 ([facility]) Unknown [address] [facility] [place] [address] 11/15/2020 12:00:00 AM EDT eCW1 ([facility]) [place] [address] [facility] [address] 11/02/2020 12:00:00 AM EDT eCW1 ([facility]) Unknown [address] [facility] [place] [address] 11/01/2020 12:00:00 AM EDT eCW1 ([facility]) Unknown [address] [facility] [place] [address] 10/23/2020 12:00:00 AM EDT eCW1 ([facility]) Outpatient [address] [facility] [address] 10/19/2020 12:00:00 AM EDT eCW1 ([facility]) Unknown [address] [facility] [place] [address] 10/19/2020 12:00:00 AM EDT eCW1 ([facility]) Outpatient [address] [facility] [place] [address] 10/11/2020 12:00:00 AM EDT eCW1 ([facility]) Unknown [address] [facility] [place] [address] 10/05/2020 12:00:00 AM EDT eCW1 ([facility]) [place] [address] [facility] [address] 09/05/2020 12:00:00 AM EDT eCW1 ([facility]) [place] [address] [facility] [address] 08/23/2020 12:00:00 AM EDT eCW1 ([facility]) [place] [address] [facility] [address] 08/14/2020 12:00:00 AM EDT eCW1 ([facility]) Outpatient<td ID="encounterTypeDescripti onID1">COVID Vaccine</td><td>Kvng Blackwell MD</td><td>[facility]</td><td>08/09/2020</td><td>1:09PM</td><td>1:43PM</td><td></td> Attender: Kvng Blackwell MD [facility] 08/09/2020 01:09:00 P M EDT - 08/09/2020 01:43:35 PM EDT [place] ([facility]) [place] [address] [facility] [address] 07/27/2020 12:00:00 AM EDT eCW1 ([facility]) Outpatient<td ID="encounterTypeDescripti onID2">COVID Vaccine</td><td>Kvng Blackwell MD</td><td>[facility]</td><td>07/12/2020</td><td>1:27PM</td><td>2:00PM</td><td></td> Attender: Kvng Blackwell MD [facility] 07/12/2020 01:27:00 P M EDT - 07/12/2020 02:00:55 PM EDT SAR[place] ([facility]) Outpatient<td ID="encounterTypeDescripti onID3">Ambulatory Procedure</td><td>Kvng Blackwell MD</td><td>[facility]</td><td>07/10/2020</td><td>1:31PM</td><td>2:43PM</td><td><content ID="encounterDiagnosisID3-0">Skin Neoplasm Malignant Carcinoma Basal Cell</content></td> Attender: Kvng Blackwell MD [facility] 07/10/2020 01:31:00 PM EDT - 07/10/2020 02:43:00 PM ED T Skin Neoplasm Malignant Carcinoma Basal CellSkin Neoplasm Malignant Carcinoma Basal CellSkin Neoplasm Malignant Carcinoma Basal CellSkin Neoplasm Malignant Carcinoma Basal Cell [place] ([facility]) Skin Neoplasm Malignant Carcinoma Basal Cell Skin Neoplasm Malignant Carcinoma Basal Cell Skin Neoplasm Malignant Carcinoma Basal Cell Skin Neoplasm Malignant Carcinoma Basal Cell <td ID="encounterTypeDescriptionID6"> Annual Wellness SUBSEQUENT visi t(> 1yr since prev.</td><td>Kvng Blackwell MD</td><td>[facility]</td><td>06/26/2020</td><td>1:02PM</td> <td>2:02PM</td><td><content ID="encounterDiagnosisID6-0">Routine History and Physical Senior Citizen (65-80 Yrs)</content></td>Outpatient Attender: Kvng Blackwell MD [facility] 06/26/2020 01:02:00 P M EST - 06/26/2020 02:02:00 PM EST Routine History and Physical Senior Citi sukh (65-80 Yrs)Routine History and Physical Senior Citizen (65-80 Yrs)Routine History and Physical Senior Citizen (65-80 Yrs)Routine History and Physical Senior Citizen (65-80 Yrs)Routine History and Physical Senior Citizen (65-80 Yrs)Routine History and Physical Senior Citizen (65-80 Yrs)Routine History and Physical Senior Citizen (65-80 Yrs) [place] ([facility]) Routine History and Physical Senior Citi [...] Physical Senior Citi sukh (65-80 Yrs) <td ID="encounterTypeDescriptionID5">[facility]</td><td>Kvng Blackwell MD</td><td>[facility]</td><td>06/26/2020</td><td>1:02PM</td><td>2:02PM</td><td><content ID="encounterDiagnosisID5-0">Actinic Keratosis</content>, <content ID="encounterDiagnosisID5-1">Skin Neoplasm Malignant Carcinoma Basal Cell</content>, <content ID="encounterDiagnosisID5-2">Paroxysmal Atrial Tachycardia</content>, <content ID="encounterDiagnosisID5-3">Polymyalgia Rheumatica</content>, <content ID="encounterDiagnosisID5-4">Essential Hypertension</content>, <content ID="encounterDiagnosisID5- 5">Hypercholesterolemia Essential</content></td>Outpatient Attender: Kvng Blackwell MD [facility] 06/26/2020 01:02:00 P M EST [...] TachycardiaParoxysmal Atrial TachycardiaParoxysmal Atrial TachycardiaParoxysmal Atrial Tachycardia [place] ([facility]) Hypercholesterolemia Essential Essential Hypertension Skin Neoplasm [...] Tachycardia Outpatient<td ID="encounterTypeDescripti onID4">ANNUAL PE-followup exam</td><td>Kvng Blackwell MD</td><td>[facility]</td><td>06/26/2020</td><td>1:02PM</td><td>2:02PM</td><td><content ID="encounterDiagnosisID4-0">Routine History and Physical Senior Citizen (65-80 Yrs)</content></td> Attender: Kvng Blackwell MD [facility] 06/26/2020 01:02:00 PM EST - 06/26/2020 02:02:00 PM T Routine History and Physical Senior Citizen (65-80 Yrs)Routine History and Physical Senior Citizen (65-80 Yrs)Routine History and Physical Senior Citizen (65-80 Yrs)Routine History and Physical Senior Citizen (65-80 Yrs)Routine History and Physical Senior Citizen (65-80 Yrs) [place] ([facility]) Routine History and Physical Senior Citi sukh (65-80 Yrs) Routine History and Physical Senior Citi sukh (65-80 Yrs) Routine History and Physical Senior Citi sukh (65-80 Yrs) Routine History and Physical Senior Citi suhk (65-80 Yrs) Routine History and Physical Senior Citi sukh (65-80 Yrs) Office Visit, Est Pt., Level 4 PC [address] [place] [address] 04/30/2020 12:00:00 AM EST eCW1 ([facility]) [place] [address] [facility] [address] 02/01/2020 12:00:00 AM EDT eCW1 ([facility]) Unknown [address] [facility] [address] 01/24/2020 12:00:00 AM EDT eCW1 ([facility]) Outpatient Attender: AYDEN BO_23 [facility] 01/12/2020 0 2:00:00 PM EDT MEDRA ([facility]) <td ID="encounterTypeDescriptionID6">inc ident to previous visit-</td><td>Nancy Fox [facility]</td><td>[facility]</td><td>12/22/2019</td><td>9:57AM</td><td>10:44AM</td><td><content ID="encounterDiagnosisID6-0">Polymyalgia Rheumatica</content>, <content ID="encounterDiagnosisID6-1">Paroxysmal Atrial Tachycardia</content>, <content ID="encounterDiagnosisID6-2">Osteoarthritis Knee Left</content>, <content ID="encounterDiagnosisID6-3">Osteopenia</content></td>Outpatient Attender: Nancy GUERRA [facility] 12/22/2019 09:57:00 A M EDT - 12/22/2019 10:44:00 AM EDT Osteoarthritis Knee LeftPolymyalgia RheumaticaOsteoarthritis Knee LeftPolymyalgia RheumaticaOsteoarthritis Knee LeftPolymyalgia RheumaticaOsteoarthritis Knee LeftPolymyalgia RheumaticaOsteoarthritis Knee LeftPolymyalgia RheumaticaOsteoarthritis Knee LeftPolymyalgia RheumaticaOsteoarthritis Knee LeftPolymyalgia RheumaticaOsteopeniaParoxysmal Atrial TachycardiaOsteopeniaParoxysmal Atrial TachycardiaOsteopeniaParoxysmal Atrial TachycardiaOsteopeniaParoxysmal Atrial TachycardiaOsteopeniaParoxysmal Atrial TachycardiaOsteopeniaParoxysmal Atrial TachycardiaOsteopeniaParoxysmal Atrial Tachycardia OTTO ([facility]) Osteoarthritis Knee Left Polymyalgia Rheumatica Osteoarthritis [...] IM 08/12/2020 09:27:00 AM EDT completed eCW1 ([facility]) Moderna #2 dose COVID-19(given elsewhere) SARSCOV2 VAC 100MCG/0.5ML IM 08/12/2020 09:27:00 AM EDT completed eCW1 ([facility]) Moderna #2 dose COVID-19(given elsewhere) SARSCOV2 VAC 100MCG/0.5ML IM 08/12/2020 09:27:00 AM EDT completed eCW1 ([facility]) Moderna #2 dose COVID-19(given elsewhere) SARSCOV2 VAC 100MCG/0.5ML IM 08/12/2020 09:27:00 AM EDT completed eCW1 ([facility]) Moderna #2 dose COVID-19(given elsewhere) SARSCOV2 VAC 100MCG/0.5ML IM 08/12/2020 09:27:00 AM EDT completed eCW1 ([facility]) Moderna #2 dose COVID-19(given elsewhere) SARSCOV2 VAC 100MCG/0.5ML IM 08/12/2020 09:27:00 AM EDT completed eCW1 ([facility]) Moderna #2 dose COVID-19(given elsewhere) SARSCOV2 VAC 100MCG/0.5ML IM 08/12/2020 09:27:00 AM EDT completed eCW1 ([facility]) Moderna #2 dose COVID-19(given elsewhere) SARSCOV2 VAC 100MCG/0.5ML IM 08/12/2020 09:27:00 AM EDT completed eCW1 ([facility]) Moderna COVID-19 vaccine 08/09/2020 02:49:00 PM EDT completed <td ID="Bxrnbckhzuwxq-Mnrdsxfmspe-BW8">Moderna COVID-19 vaccine</td><td ID="ImmunizationDose-1">2</td><td>08/09/2020</td><td ID="Xabllwmcayton-JejgfUvld-YE7">Left Deltoid</td><td></td><td ID="Mtfoznmbgewau-Rtsyrl-TK2">Complete (Administered)</td><td>[facility]</td><td ID="Mxrutnbtxmahv-Cycrj-Okei-Comment-ID1"></td> [place] ([facility]) Moderna COVID-19 vaccine 07/12/2020 04:08:00 PM EDT completed <td ID="Skxyyhmbtqogm-Rbmwiglcqmx-LE4">Moderna COVID-19 vaccine</td><td ID="ImmunizationDose-0">1</td><td>07/12/2020</td><td ID="Ksqornwjjuoeg-AfiwuOikj-TQ3">Left Deltoid</td><td></td><td ID="Phwzswjggzdrx-Vqdtrw-SZ4">Complete (Administered)</td><td>[facility]</td><td ID="Rjpxcgukfsysf-Sxfjf-Kesd-Comment-ID0"></td> [facility]) Moderna #1 dose COVID-19(given elsewhere) SARSCOV2 VAC 100MCG/0.5ML IM 07/12/2020 09:27:00 AM EDT completed eCW1 ([facility]) Moderna #1 dose COVID-19(given elsewhere) SARSCOV2 VAC 100MCG/0.5ML IM 07/12/2020 09:27:00 AM EDT completed eCW1 ([facility]) Moderna #1 dose COVID-19(given elsewhere) SARSCOV2 VAC 100MCG/0.5ML IM 07/12/2020 09:27:00 AM EDT completed eCW1 ([facility]) Moderna #1 dose COVID-19(given elsewhere) SARSCOV2 VAC 100MCG/0.5ML IM 07/12/2020 09:27:00 AM EDT completed eCW1 ([facility]) Moderna #1 dose COVID-19(given elsewhere) SARSCOV2 VAC 100MCG/0.5ML IM 07/12/2020 09:27:00 AM EDT completed eCW1 ([facility]) Moderna #1 dose COVID-19(given elsewhere) SARSCOV2 VAC 100MCG/0.5ML IM 07/12/2020 09:27:00 AM EDT completed eCW1 ([facility]) Moderna #1 dose COVID-19(given elsewhere) SARSCOV2 VAC 100MCG/0.5ML IM 07/12/2020 09:27:00 AM EDT completed eCW1 ([facility]) Moderna #1 dose COVID-19(given elsewhere) SARSCOV2 VAC 100MCG/0.5ML IM 07/12/2020 09:27:00 AM EDT completed eCW1 ([facility]) Medications Medication Brand Name Start Date Product [...] succinate 50 MG Extended Release Oral Tablet OTTO ([facility]) Prednisone 1 MG Oral Tablet predniSONE 1 MG Oral Table t predniSONE 1 MG Oral Tablet 12/22/2019 12:00:00 AM EDT active prednisone 1 MG Oral Tablet [facility]) 24 HR metoprolol succinate 50 MG Extende d Release Oral Tablet Metoprolol Succinate ER 50 MG Oral Tablet Extended Release 24 Hour Metoprolol Succinate ER 50 MG Oral Tablet Extended Release 24 Hour 10/07/2019 12:00:00 AM EDT 1 aborted 24 HR metoprolol succinate 50 MG Extended Release Oral Tablet SAR[place]OGA ([facility] [facility]) 0.65 ML Varicella-Zoster Virus Vaccine L roxanne (Contract Live) strain 91919 UNT/ML Injection [Zostavax] Zostavax 30217 UNT/0.65ML Suspension Reconstituted Zostavax 28025 UNT/0.65ML Suspension Reconstituted 12/09/2016 12:00:00 AM EDT aborted 0.65 ML varicella-zo ster virus vaccine live (Contract Live) strain 15195 UNT/ML Injection [Zostavax] [place] ([facility] [employer] [facility]) Insurance Providers Payer name Policy type / Coverage type Policy ID Covered green party ID Covered green party's relationship to hernandez Policy Hernandez Plan Information [employer] Other 0 [id number] Self 0 [employer] Other 0 [id number] Self 0 United[employer] Other 0 [id number] Self 0 [employer] Other 0 [id number] Self 0 [employer] Other 0 [id number] Self 0 [employer] Other 0 [id number] Self 0 [employer]Health[employer] Other 0 [id number] Self 0 [employer]Health[employer] Other 0 [id number] Self 0 [employer]Health[employer] Other 0 [id number] Self 0 [employer]Health[employer] Other 0 [id number] Self 0 [employer]Health[employer] Other 0 [id number] Self 0 [employer] Other 0 [id number] Self 0 [employer] Other 0 [id number] Self 0 [employer] Other 0 [id number] Self 0 [employer] Other 0 [id number] Self 0 [employer] Other 0 [id number] Self 0 [employer] Other 0 [id number] Self 0 [employer]Health[employer] Other 0 [id number] Self 0 [employer] Other 0 [id number] Self 0 [employer] Other 0 [id number] Self 0 [employer] Other 0 [id number] Self 0 [employer] Other 0 [id number] Self 0 [employer] Other 0 [id number] Self 0 [employer] Other 0 [id number] Self 0 [employer] Medicar Commercial [id number] Self MEDICARE COMPLETE [id number] SP [id number] MEDICARE [id number] SP [id number] MEDICARE COMPLETE [id number] SP [id number] MEDICARE COMPLETE [id number] SP [id number] [facility] [id number] SP [id number] [facility] O [id number] S [id number] [facility] [id number] SP [id number] ANSI-Medicare Part B [id number] ANSI-Medicare Part B [id number] ANSI-Medicare Part B [id number] ANSI-Medicare Part B [id number] MEDICARE COMPLETE [id number] SP [id number] MEDICARE COMPLETE [id number] SP [id number] [facility] Commercial [id number] Self [id number] MEDICARE COMPLETE [id number] SP [id number] Problems, Conditions, and Diagnoses Code Display Name Description Problem Type Effective Dates Data Source(s) 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 Problem 10/11/2020 12:00:00 AM EDT eCW1 ([facility]) C44.111 [id number] 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 Problem 08/23/2020 12:00:00 AM EDT eCW1 ([facility]) Z79.52 [id number] jail 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 Prob ander 08/14/2020 12:00:00 AM EDT eCW1 ([facility]) M17.0 [id number] Primary osteoarthritis of both knees Prob ander 02/01/2020 12:00:00 AM EDT eC1 ([facility]) E11.9 Type 2 diabetes mellitus Type 2 diabetes mellitus Prob ander 01/12/2020 12:00:00 AM [facility]iology) 725 Polymyalgia Rheumatica Polymyalgia Rheumatica Problem 12/22/2019 11:21:00 AM EDT OTTO ([facility]) 725 Polymyalgia Rheumatica Polymyalgia Rheumatica Problem 12/22/2019 11:21:00 AM EDT OTTO ([facility]) 725 Polymyalgia Rheumatica Polymyalgia Rheumatica Problem 12/22/2019 11:21:00 AM EDT [place] ([facility]) 725 Polymyalgia Rheumatica Polymyalgia Rheumatica Problem 12/22/2019 11:21:00 AM EDT [place] ([facility]) 725 Polymyalgia Rheumatica Polymyalgia Rheumatica Problem 12/22/2019 11:21:00 AM EDT [place] ([facility]) 725 Polymyalgia Rheumatica Polymyalgia Rheumatica Problem 12/22/2019 11:21:00 AM EDT [place] ([facility]) 725 Polymyalgia Rheumatica Polymyalgia Rheumatica Problem 12/22/2019 11:21:00 AM EDT [place] ([facility]) 725 Polymyalgia Rheumatica Polymyalgia Rheumatica Problem 12/22/2019 11:21:00 AM EDT [place] ([facility]) Surgeries/Procedures Procedure Description Date Indications Data Source(s) OFFICE OUTPATIENT VISIT 25 MINUTES 01/30/2021 12:00:00 AM EDT BETZY ([facility]) OFFICE OUTPATIENT VISIT 25 MINUTES 01/15/2021 12:00:00 AM EDT [facility] Cardiology) Med: Derm Lidocaine with Epinephrine Inj ection 1% with 2 ml sodium bicarbonate Intradermally to marked areas 08/23/2020 12:00:00 AM EDT eCW1 ([facility]) MODERNA vaccine, 1st or 2nd dose MODERNA vaccine, 1st or 2nd dose 08/09/2020 12:00:00 AM EDT [place] ([facility]) MODERNA administration, 2nd dose MODERNA administration, 2nd dose 08/09/2020 12:00:00 AM EDT [place] ([facility]) MODERNA administration, 1st dose MODERNA administration, 1st dose 07/12/2020 12:00:00 AM EDT [place] ([facility]) MODERNA vaccine, 1st or 2nd dose MODERNA vaccine, 1st or 2nd dose 07/12/2020 12:00:00 AM EDT [place] ([facility]) no charge procedure no charge procedure 07/10/2020 12:00:00 AM EDT [place] ([facility]) Annual depression screening, 15 minutes -Annual depr ession screening- 15 min. (Distinct Seperate service-same day) 06/26/2020 12:00:00 AM [facility] ([facility]) Annual wellness visit, includes a person alized prevention plan of service (pps), subsequent visit - subseq't annual wellness exam(1 yr after Initial) 06/26/2020 12:00:00 AM [facility]) Annual wellness visit, includes a person alized prevention plan of service (pps), subsequent visit MC- subseq't annual wellness exam(1 yr after Initial) 06/26/2020 12:00:00 AM [facility] ([facility]) Annual depression screening, 15 minutes MC-Annual depr ession screening- 15 min. (59) 06/26/2020 12:00:00 AM [facility] ([facility]) Fasting Lipid Profile Fasting Lipid Profile 06/21/2020 12:00:00 AM [facility] ([facility]) CMP-Complete Metabolic Profile CMP-Complete Metabolic Profil e 06/21/2020 12:00:00 AM [facility] ([facility]) CBC CBC 06/21/2020 12:00:00 AM EST G [facility] ([facility]) Venipuncture (routine) Venipuncture (routine) 06/21/2020 12:00:00 A M [facility]) Echocardiography, Tranthoracic Complete Image Documentation 01/26/2020 12:00:00 AM EDT MEDRA ([facility]) Results ID Date Data Source ERYTHROCYTE SEDIMENTATION RATE 12/27/2020 12:00:00 AM EDT eC W1 ([facility]) Name Value Range Interpretation Code Description Data Nicole rce(s) Supporting Document(s) 7 0-30 ERYTHROCYTE SEDIMENTATION RATE eCW1 ([facility]) ID Date Data Source C REACTIVE PROTEIN QUANTITATIV (At [facility]) 12/27/2020 12:00 :00 AM EDT eCW1 ([facility]) Name Value Range Interpretation Code Description Data Nicole rce(s) Supporting Document(s) 0.67 0.00-0.30 C REACTIVE PROTEIN QUANTI TATIV eCW1 ([facility]) ID Date Data Source Comprehensive Metabolic Profile (CMP) 12/27/2020 12:00:00 AM EDT eCW1 ([facility]) Name Value Range Interpretation Code Description Data Nicole rce(s) Supporting Document(s) 112 70-100 GLUCOSE, FASTING eCW1 ([facility]) 0.88 0.55-1.30 CREATININE FOR GFR eCW1 ([facility]) 17 7-18 BLOOD UREA NITROGEN eCW1 ([facility]) 141 136-145 SODIUM LEVEL eCW1 ([facility]) > 60.0 >39 GLOMERULAR FILTRATION RATE eCW 1 ([facility]) 4.3 3.5-5.1 POTASSIUM SERUM eCW1 ([facility]) 105 98-107 CHLORIDE LEVEL eCW1 ([facility]) 30 21-32 CARBON DIOXIDE LEVEL eCW1 ([facility]) 9.0 8.8-10.2 CALCIUM LEVEL eCW1 ([facility]) 15 7-37 AST/SGOT eCW1 ([facility]) 21 12-78 ALT/SGPT eCW1 ([facility]) 62 45-117 ALKALINE PHOSPHATASE eCW1 ([facility]) 0.4 0.2-1.0 BILIRUBIN,TOTAL eCW1 ([facility]) 6.6 6.4-8.2 TOTAL PROTEIN eCW1 ([facility]) 3.6 3.2-5.2 ALBUMIN eCW1 ([facility]) 1.2 1.2-2.2 ALBUMIN/GLOBULIN RATIO eCW1 ([facility]) ID Date Data Source CBC with Differential 12/27/2020 12:00:00 AM EDT eCW1 ([facility]) Name Value Range Interpretation Code Description Data Nicole rce(s) Supporting Document(s) 5.4 4.0-10.0 WHITE BLOOD COUNT eCW1 ([facility]) 4.38 4.00-5.40 RED BLOOD COUNT eCW1 ([facility]) 43.1 36.0-47.0 HEMATOCRIT eCW1 ([facility]) 13.5 12.0-15.5 HEMOGLOBIN eCW1 ([facility]) 98.4 80.0-96.0 MEAN CORPUSCULAR VOLUME e CW1 ([facility]) 31.3 32.0-36.5 MEAN CORPUSCULAR HGB CONC eCW1 ([facility]) 30.8 27.0-33.0 MEAN CORPUSCULAR HEMOGLOB IN eCW1 ([facility]) 220 150-450 PLATELET COUNT, AUTOMATED eCW1 ([facility]) 12.4 11.5-14.5 RED CELL DISTRIBUTION WID TH eCW1 ([facility]) 45.0 36.0-66.0 NEUTROPHILS % eCW1 ([facility]) 32.5 24.0-44.0 LYMPH % eCW1 ([facility]) 4.2 0.0-3.0 EOS % eCW1 ([facility]) 16.6 2.0-8.0 MONO % eCW1 ([facility]) 1.1 0.0-1.0 BASO % eCW1 ([facility]) 2.4 1.5-8.5 NEUTROPHILS # eCW1 ([facility]) 1.8 1.5-5.0 LYMPH # eCW1 ([facility]) 0.9 0.0-0.8 MONO # eCW1 ([facility]) 0.2 0.0-0.5 EOS # eCW1 ([facility]) 0.1 0.0-0.2 BASO # eCW1 ([facility]) ID Date Data Source VITAMIN D 25-HYDROXY 08/14/2020 12:00:00 AM EDT eCW1 ([facility]) Name Value Range Interpretation Code Description Data Nicole rce(s) Supporting Document(s) 30.8 30.0-100.0 TOTAL 25(OH) VITAMIN D eC W1 ([facility]) ID Date Data Source [id number] 06/21/2020 08:55:00 AM EST SARATOGA ([facility]) Name Value Range Interpretation Code Description Data Nicole rce(s) Supporting Document(s) Dir. LDL 126 mg/dl Dir. LDL SARATOGA ([facility]) Note: Responsible Observer: KM HDL 59 mg/dl Above high normal HDL SARATOGA ([facility]) Note: Responsible Observer: KM Cholesterol [Moles/volume] in Pericardial fluid 234 mg/dl Above high normal Cholesterol SARATOGA ([facility]) Note: Responsible Observer: KM Triglycerides 145 mg/dl Triglycerides SARATOGA ([facility]) Note: Responsible Observer: KM ID Date Data Source [id number] 06/21/2020 08:55:00 AM EST SARATOGA ([facility]) Name Value Range Interpretation Code Description Data Nicole rce(s) Supporting Document(s) Alkaline Phos 56 IU/L Alkaline Phos SARATOGA ([facility]) Note: Responsible Observer: KM Albumin [Mass/volume] in Blood by Bromocresol purple ( BCP) dye binding method 4.2 g/dl Albumin SARATOGA ([facility]) Note: Responsible Observer: KM ALT 12 IU/L ALT OTTO ([facility]) Note: Responsible Observer: KM Urea nitrogen [Moles/volume] in Blood 22 mg/dl Abo ve high normal Urea Nitrogen SARATOGA ([facility]) Note: Responsible Observer: KM AST 13 IU/L AST SARATOGA ([facility]) Note: Responsible Observer: KM CO2 24 mmol/L CO2 SARATOGA ([facility]) Note: Responsible Observer: KM Chloride [Moles/volume] in Serum, Plasma or Blood 106 mmol/L Chloride SARATOGA ([facility]) Note: Responsible Observer: KM Calcium [Moles/volume] in Urine collected for unspecified durati on 8.4 mg/dl Calcium SARATOGA ([facility]) Note: Responsible Observer: KM Creatinine [Moles/volume] in Vitreous fluid 0.9 mg/dl Creatinine SARATOGA ([facility]) Note: Responsible Observer: KM Glucose [Mass/volume] in Urine collected for unspecified duration 1 02 mg/dl Glucose SARATOGA ([facility]) Note: Responsible Observer: KM Potassium [Mass/volume] in Blood 5 mmol/L Pot assium SARATOGA ([facility]) Note: Responsible Observer: KM Sodium [Moles/volume] in Serum, Plasma or Blood 143 mmol/L Sodium SARATOGA ([facility]) Note: Responsible Observer: KM EGFR - AfricanAm > 60 N/A EGFR - AfricanAm [facility] ([facility]) Note: Responsible Observer: KM EGFR - Non AF AM > 60 N/A EGFR - Non AF AM GR [facility] ([facility]) Note: Responsible Observer: KM Total Protein 6.5 g/dl Total Protein SARATOGA ([facility]) Note: Responsible Observer: KM Total Bilirubin 0.5 mg/dl [facility]) Note: Responsible Observer: KM ID Date Data Source [id number] 06/21/2020 08:55:00 AM EST SARATOGA ([facility]) Name Value Range Interpretation Code Description Data Nicole rce(s) Supporting Document(s) GRAN# 3.3 /mm3 GRAN# SARATOGA ([facility]) Note: Responsible Observer: KM GRAN% 56.6 % GRAN% SARATOGA ([facility]) Note: Responsible Observer: KM LY# 1.8 /mm3 LY# SARATOGA ([facility]) Note: Responsible Observer: KM HCT 40.4 % HCT SARATOGA ([facility]) Note: Responsible Observer: KM HGB 13.1 g/dl HGB SAR[place]GA ([facility]) Note: Responsible Observer: KM LY% 32.0 % LY% OTTO ([facility]) Note: Responsible Observer: KM MCH 31.3 pg MCH SARATOGA ([facility]) Note: Responsible Observer: KM MCHC 32.5 G/DL MCHC OTTO ([facility]) Note: Responsible Observer: KM MID# 0.7 /mm3 MID# OTTO ([facility]) Note: Responsible Observer: KM MID% 11.4 % Above high normal MID% OTTO ([facility]) Note: Responsible Observer: KM MCV 96.4 um3 Above high normal MCV OTTO ([facility]) Note: Responsible Observer: KM RBC 4.19 /mm3 RBC OTTO ([facility]) Note: Responsible Observer: KM PLT 188 /mm3 PLT OTTO ([facility]) Note: Responsible Observer: KM MPV 10.0 um3 MPV OTTO ([facility]) Note: Responsible Observer: KM WBC 5.8 /mm3 WBC OTTO ([facility]) Note: Responsible Observer: KM RDW 15.1 % Above high normal RDW OTTO ([facility]) Note: Responsible Observer: KM ID Date Data Source [id number] 01/26/2020 01:21:00 PM EDT MEDENT ([facility]) Name Value Range Interpretation Code Description Data Nicole rce(s) Supporting Document(s) Echocardiogram Laboratory test result ME DENT ([facility]) Procedure Social History Code Duration Value Status Description Data Source(s ) Smoking 12/26/2020 12:00:00 AM EDT Never Smoker completed Never S moker eCW1 ([facility]) Smoking 10/19/2020 12:00:00 AM EDT Never Smoker completed Never S moker eCW1 ([facility]) Smoking 10/19/2020 12:00:00 AM EDT Never Smoker completed Never S moker eCW1 ([facility]) Smoking 10/19/2020 12:00:00 AM EDT Never Smoker completed Never S moker eCW1 ([facility]) Smoking 10/19/2020 12:00:00 AM EDT Never Smoker completed Never S moker eCW1 ([facility]) Smoking 10/19/2020 12:00:00 AM EDT Never Smoker completed Never S moker eCW1 ([facility]) Smoking 10/19/2020 12:00:00 AM EDT Never Smoker completed Never S moker eCW1 ([facility]) Smoking 10/19/2020 12:00:00 AM EDT Never Smoker completed Never S moker eCW1 ([facility]) Smoking 10/11/2020 12:00:00 AM EDT Never Smoker completed Never S moker eCW1 ([facility]) Smoking 08/23/2020 12:00:00 AM EDT Never Smoker completed Never S moker eCW1 ([facility]) Smoking 08/23/2020 12:00:00 AM EDT Never Smoker completed Never S moker eCW1 ([facility]) Smoking 08/23/2020 12:00:00 AM EDT Never Smoker completed Never S moker eCW1 ([facility]) Smoking 08/14/2020 12:00:00 AM EDT Never Smoker completed Never S moker eCW1 ([facility]) Smoking 04/30/2020 12:00:00 AM EST Never Smoker completed Never S moker eCW1 ([facility]) Smoking 04/30/2020 12:00:00 AM EST Never Smoker completed Never S moker eCW1 ([facility]) Smoking 02/01/2020 12:00:00 AM EDT Never Smoker completed Never S moker eCW1 ([facility]) Vital Signs ID Date Data Source UNK Name Value Range Interpretation Code Description Data Source(s) Systolic blood pressure 135 mm[Hg] 135 mm[Hg] M JORGE A ([facility]) Diastolic blood pressure 76 mm[Hg] 76 mm[Hg] BETZY ([facility]) Heart rate 87 /min 87 /min BETZY ([facility]) Body weight 175.00 [lb_av] 175.00 [lb_av] DANILO T ([facility]) Body mass index (BMI) [Ratio] 33.1 kg/m2 33.1 k g/m2 BETZY ([facility]) Systolic blood pressure 142 mm[Hg] 142 mm[Hg] M EDRA ([facility]) retake Diastolic blood pressure 78 mm[Hg] 78 mm[Hg] MEDRA ([facility]) retake Systolic blood pressure 168 mm[Hg] 168 mm[Hg] M EDENT ([facility]) x2 Diastolic blood pressure 90 mm[Hg] 90 mm[Hg] MEDENT ([facility]) x2 Heart rate 72 /min 72 /min MEDENT ([facility]) Body height 61 [in_i] 61 [in_i] MEDENT ([facility]) 5'1" Body weight 175.00 [lb_av] 175.00 [lb_av] MEDEN T ([facility]) Body surface area Derived from formula 1.80 m2 1.80 m2 SARATOGA ([facility]) Systolic blood pressure 136 mm[Hg] 136 mm[Hg] G REENWAY ([facility]) Diastolic blood pressure 78 mm[Hg] 78 mm[Hg] SARATOGA ([facility]) Heart rate 62 /min 62 /min SARATOGA ([facility]) Respiratory rate 22 /min 22 /min SARATOGA ([facility]) Body height 60.75 [in_i] 60.75 [in_i] SARATOGA ([facility]) Body weight 179 [lb_av] 179 [lb_av] SARATOGA ([facility]) Body mass index (BMI) [Ratio] 34.1 kg/m2 34.1 k g/m2 SARATOGA ([facility]) Body weight 181.2 [lb_av] 181.2 [lb_av] eCW1 ([facility]) Body mass index (BMI) [Ratio] 35.38 kg/m2 35.38 kg/m2 eCW1 ([facility]) Heart rate 74 /min 74 /min eCW1 ([facility]) Respiratory rate 18 /min 18 /min eCW1 ([facility]) Body temperature 97.1 [degF] 97.1 [degF] eCW1 ( [facility]) Systolic blood pressure 124 mm[Hg] 124 mm[Hg] e CW1 ([facility]) Diastolic blood pressure 68 mm[Hg] 68 mm[Hg] eCW1 ([facility]) Body height 60 [in_i] 60 [in_i] eCW1 ([facility]) Body weight 82.19 kg 82.19 kg eCW1 ([facility]) Body weight 188.6 [lb_av] 188.6 [lb_av] eCW1 ([facility]) Body weight 85.5 kg 85.5 kg eCW1 ([facility]) Body height 60 [in_i] 60 [in_i] eCW1 ([facility]) Body mass index (BMI) [Ratio] 36.83 kg/m2 36.83 kg/m2 eCW1 ([facility]) Heart rate 67 /min 67 /min eCW1 ([facility]) Respiratory rate 18 /min 18 /min eCW1 ([facility]) Body temperature 97.2 [degF] 97.2 [degF] eCW1 ( [facility]) Systolic blood pressure 130 mm[Hg] 130 mm[Hg] e CW1 ([facility]) Diastolic blood pressure 88 mm[Hg] 88 mm[Hg] eCW1 ([facility]) Systolic blood pressure 123 mm[Hg] 123 mm[Hg] e CW1 ([facility]) Diastolic blood pressure 81 mm[Hg] 81 mm[Hg] eCW1 ([facility]) Body weight 187.6 [lb_av] 187.6 [lb_av] eCW1 ([facility]) Body height 60 [in_i] 60 [in_i] eCW1 ([facility]) Body mass index (BMI) [Ratio] 36.63 kg/m2 36.63 kg/m2 eCW1 ([facility]) Body weight 189 [lb_av] 189 [lb_av] eCW1 ([facility]) Body height 60 [in_i] 60 [in_i] eCW1 ([facility]) Body mass index (BMI) [Ratio] 36.91 kg/m2 36.91 kg/m2 W1 ([facility]) Systolic blood pressure 120 mm[Hg] 120 mm[Hg] e CW1 ([facility]) Diastolic blood pressure 78 mm[Hg] 78 mm[Hg] eCW1 ([facility]) Body weight 189.0 [lb_av] 189.0 [lb_av] eCW1 ([facility]) Body weight 85.7 kg 85.7 kg eCW1 ([facility]) Body height 60 [in_i] 60 [in_i] eCW1 ([facility]) Body mass index (BMI) [Ratio] 36.91 kg/m2 36.91 kg/m2 eCW1 ([facility]) Heart rate 74 /min 74 /min eCW1 ([facility]) Respiratory rate 18 /min 18 /min eCW1 ([facility]) Body temperature 97.5 [degF] 97.5 [degF] eCW1 ( [facility]) Systolic blood pressure 128 mm[Hg] 128 mm[Hg] e CW1 ([facility]) Diastolic blood pressure 70 mm[Hg] 70 mm[Hg] eCW1 ([facility]) Systolic blood pressure 159 mm[Hg] 159 mm[Hg] M EDENT ([facility]) Diastolic blood pressure 71 mm[Hg] 71 mm[Hg] MEDENT ([facility]) Body weight 185.00 [lb_av] 185.00 [lb_av] MEDEN T ([facility]) Body temperature 97.8 [degF] 97.8 [degF] MEDENT ([facility]) Systolic blood pressure 146 mm[Hg] 146 mm[Hg] G COCO ([facility]) recheck Diastolic blood pressure 84 mm[Hg] 84 mm[Hg] OTTO ([facility]) recheck Diastolic blood pressure 92 mm[Hg] 92 mm[Hg] OTTO ([facility]) Systolic blood pressure 170 mm[Hg] 170 mm[Hg] G COCO ([facility]) Heart rate 68 /min 68 /min OTTO ([facility]) Body height 60.75 [in_i] 60.75 [in_i] SARATOGA ([facility]) Body weight 185 [lb_av] 185 [lb_av] OTTO ([facility]) Body mass index (BMI) [Ratio] 35.2 kg/m2 35.2 k g/m2 SARATOGA ([facility]) Body surface area Derived from formula 1.82 m2 1.82 m2 SARATOGA ([facility]) Systolic blood pressure 142 mm[Hg] 142 mm[Hg] [facility] MD recheck Diastolic blood pressure 82 mm[Hg] 82 mm[Hg] SARATOGA ([facility]) MD recheck Systolic blood pressure 169 mm[Hg] 169 mm[Hg] [facility] Diastolic blood pressure 80 mm[Hg] 80 mm[Hg] SARATOGA ([facility]) Heart rate 68 /min 68 /min SARATOGA ([facility]) Body height 60.75 [in_i] 60.75 [in_i] SARATOGA ([facility]) Body mass index (BMI) [Ratio] 35.2 kg/m2 35.2 k g/m2 SARATOGA ([facility]) Body surface area Derived from formula 1.82 m2 1.82 m2 SARATOGA ([facility]) Body weight 185 [lb_av] 185 [lb_av] SARATOGA ([facility]) Body mass index (BMI) [Ratio] 35.2 kg/m2 35.2 k g/m2 SARATOGA ([facility]) Systolic blood pressure 169 mm[Hg] 169 mm[Hg] G [facility] ([facility]) Diastolic blood pressure 80 mm[Hg] 80 mm[Hg] SARATOGA ([facility]) Heart rate 68 /min 68 /min SARATOGA ([facility]) Body height 60.75 [in_i] 60.75 [in_i] SARATOGA ([facility]) Body weight 185 [lb_av] 185 [lb_av] SARATOGA ([facility]) Body surface area Derived from formula 1.82 m2 1.82 m2 SARATOGA ([facility]) Systolic blood pressure 169 mm[Hg] 169 mm[Hg] G [facility] ([facility]) Diastolic blood pressure 80 mm[Hg] 80 mm[Hg] SARATOGA ([facility]) Heart rate 68 /min 68 /min SARATOGA ([facility]) Body height 60.75 [in_i] 60.75 [in_i] SARATOGA ([facility]) Body weight 185 [lb_av] 185 [lb_av] SARATOGA ([facility]) Body mass index (BMI) [Ratio] 35.2 kg/m2 35.2 k g/m2 SARATOGA ([facility]) Body surface area Derived from formula 1.82 m2 1.82 m2 SAR[place]OGA ([facility]) Body weight 83.7 kg 83.7 kg eCW1 ([facility]) Body weight 184.6 [lb_av] 184.6 [lb_av] eCW1 ([facility]) Body height 60 [in_i] 60 [in_i] eCW1 ([facility]) Respiratory rate 18 /min 18 /min eCW1 ([facility]) Body mass index (BMI) [Ratio] 36.05 kg/m2 36.05 kg/m2 eCW1 ([facility]) Heart rate 76 /min 76 /min eCW1 ([facility]) Body temperature 97.6 [degF] 97.6 [degF] eCW1 ( [facility]) Systolic blood pressure 122 mm[Hg] 122 mm[Hg] e CW1 ([facility]) Diastolic blood pressure 62 mm[Hg] 62 mm[Hg] eCW1 ([facility]) Body weight 176.6 [lb_av] 176.6 [lb_av] eCW1 ([facility]) Body weight 80.1 kg 80.1 kg eCW1 ([facility]) Body height 60 [in_i] 60 [in_i] eCW1 ([facility]) Body mass index (BMI) [Ratio] 34.49 kg/m2 34.49 kg/m2 eCW1 ([facility]) Heart rate 74 /min 74 /min eCW1 ([facility]) Respiratory rate 18 /min 18 /min eCW1 ([facility]) Body temperature 97.2 [degF] 97.2 [degF] eCW1 ( [facility]) Systolic blood pressure 128 mm[Hg] 128 mm[Hg] e CW1 ([facility]) Diastolic blood pressure 70 mm[Hg] 70 mm[Hg] eCW1 ([facility]) Heart rate 72 /min 72 /min MEDENT [...] [Ratio] 34.2 kg/m2 34.2 k g/m2 MEDENT ([facility]) Body mass index (BMI) [Ratio] 33.3 kg/m2 33.3 k g/m2 SARATOGA ([facility]) Heart rate 56 /min 56 /min SARATOGA ([facility]) Diastolic blood pressure 78 mm[Hg] 78 mm[Hg] SARATOGA ([facility]) Respiratory rate 20 /min 20 /min SARATOGA ([facility]) Body height 60.75 [in_i] 60.75 [in_i] SARATOGA ([facility]) Body weight 175 [lb_av] 175 [lb_av] SARATOGA ([facility]) Systolic blood pressure 134 mm[Hg] 134 mm[Hg] [facility] Body surface area Derived from formula 1.78 m2 1.78 m2 SARATOGA ([facility]) Patient Treatment Plan of Care Planned Activity Planned Date Details Description Data Source (s) 24 HR metoprolol succinate 50 MG Extended Release Oral Tablet 10/05/2020 12:00:00 AM EDT SARATOGA ([facility]) 24 HR metoprolol succinate 50 MG Extended Release Oral Tablet 10/07/2019 12:00:00 AM [facility] ([facility]) 0.65 ML Varicella-Zoster Virus Vaccine L roxanne ([employer]) strain [id number] UNT/ML Injection [Zostavax] 12/09/2016 12:00:00 AM [facility] ([facility])
[2021-02-17] MEDS ORDERED: CALC600T60 PO (16:31)
[2021-02-17] MEDS ORDERED: D31000TA2 PO (16:31)
[2021-02-17] MEDS ORDERED: HOME MED LIST COMPLETE! XX SCH (16:35)
[2021-02-17 18:10] LABS: RSV AMPLIFICATION NEGATIVE (NEGATIVE)
[2021-02-17] MEDS ORDERED: PILL CUTTER 1 EACH XX PRN (18:10)
[2021-02-18 07:19] LABS: HEMATOCRIT 38.1 % (36.0-47.0); HEMOGLOBIN 12.3 g/dl (12.0-15.5); MEAN CORPUSCULAR HEMOGLOBIN 30.7 pg (27.0-33.0); MEAN CORPUSCULAR HGB CONC 32.3 g/dl (32.0-36.5); PLATELET COUNT, AUTOMATED 191 10^3/uL (150-450); RED BLOOD COUNT 4.01 10^6/uL (4.00-5.40)
[2021-02-18 07:39] LABS: BLOOD UREA NITROGEN 12 MG/DL (7-18); CALCIUM LEVEL 8.6 MG/DL (8.8-10.2); CARBON DIOXIDE LEVEL 29 MEQ/L (21-32); CHLORIDE LEVEL 103 MEQ/L (98-107); CREATININE FOR GFR 0.91 MG/DL (0.55-1.30); GLOMERULAR FILTRATION RATE > 60.0 (>32); GLUCOSE, FASTING 108 MG/DL (70-100); POTASSIUM SERUM 4.7 MEQ/L (3.5-5.1); SODIUM LEVEL 136 MEQ/L (136-145)
[2021-02-18 08:30] VITALS: BP 136/89
--- NOTE | 2021-02-18 10:29 | IPNPDOC ---
Text Note Date of Service The patient was seen on 02/18/21. NOTE Subjective: Patient seen and examined at bedside. No acute overnight events reported. This morning her O2 sats were noted to be lower on transportation to her room on the floor, but is maintaining adequate O2 sats on room air. Patient voices no new medical complaints this morning. Objective: Vital Signs: reviewed General: NAD, lying comfortably in bed HEENT: left ear erythematous, swollen, no discharge noted, no hearing deficits, mild tenderness Neck: some extension of erythema to left lateral neck, minimal tenderness Chest: lungs CTA B/L Heart: +S1S2, RRR Abd: soft, NT, ND, +BS Ext: no edema Skin: no rashes MSK: full ROM at large joints Neuro: no gross focal deficits Psych: AAOx3 A/P: 81 year old female admitted for 3 day history worsening outer ear cellulitis. #cellulitis - drug allergies to PCN, cephalosporin and doxy -Continue IV clindamycin for now - discussed concern for diarrhea/CDiff with clindamycin, and EVAN with bactrim. Decided on clindamycin. Patient denied any history of CDiff in the past. - acidophilus q meals #HTN - continue home meds - metoprolol #PMR - continue home meds - prednisone #DVT prophylaxis - mechanical Disposition: Pending clinical improvement, anticipating discharge in 24 hours. VS,Fishbone, I+O VS, Fishbone, I+O Laboratory Tests 02/17/21 13:33 02/18/21 06:38 Vital Signs Date Time Temp Pulse Resp B/P (MAP) Pulse Ox O2 Delivery O2 Flow Rate FiO2 02/18/21 08:30 97.2 72 17 136/89 (105) 95 Room Air I&O- Last 24 Hours up to 6 AM 02/18/21 06:00 Intake Total 50 ml Balance 50 ml ANTHONY OROZCO MD Feb 18, 2021 10:29
[2021-02-18] MEDS: LACTOBACILLUS ACIDOPHILUS CAP (BACID) PO SCH ×2 (11:53→19:58)
[2021-02-18] MEDS: METOPROLOL SUCC (TopROL XL) 50MG **XL** TAB PO SCH (11:54)
[2021-02-18] MEDS: CLINDAMYCIN 300 MG in IV 1 EA IV SCH ×2 (11:54→20:41)
[2021-02-18] MEDS: predniSONE 1 MG TAB PO SCH (11:55)
[2021-02-18 14:00] VITALS: BP 126/62
[2021-02-18] MEDS ORDERED: ACETAMINOPHEN TAB 650MG DOSE (2X325MG) PO PRN (20:50)
[2021-02-18 22:00] VITALS: BP 132/68
[2021-02-19] MEDS: CLINDAMYCIN 300 MG in IV 1 EA IV SCH (05:27)
[2021-02-19 06:00] VITALS: BP 130/60
[2021-02-19 06:42] LABS: HEMATOCRIT 40.9 % (36.0-47.0); MEAN CORPUSCULAR HEMOGLOBIN 30.7 pg (27.0-33.0); MEAN CORPUSCULAR HGB CONC 31.8 g/dl (32.0-36.5); MEAN CORPUSCULAR VOLUME 96.7 fl (80.0-96.0); PLATELET COUNT, AUTOMATED 179 10^3/uL (150-450); RED BLOOD COUNT 4.23 10^6/uL (4.00-5.40); WHITE BLOOD COUNT 4.1 10^3/uL (4.0-10.0)
[2021-02-19 07:08] LABS: BLOOD UREA NITROGEN 16 MG/DL (7-18); CALCIUM LEVEL 8.8 MG/DL (8.8-10.2); CARBON DIOXIDE LEVEL 30 MEQ/L (21-32); CHLORIDE LEVEL 106 MEQ/L (98-107); CREATININE FOR GFR 0.81 MG/DL (0.55-1.30); GLOMERULAR FILTRATION RATE > 60.0 (>32); GLUCOSE, FASTING 105 MG/DL (70-100); POTASSIUM SERUM 4.9 MEQ/L (3.5-5.1); SODIUM LEVEL 140 MEQ/L (136-145)
[2021-02-19] MEDS: LACTOBACILLUS ACIDOPHILUS CAP (BACID) PO SCH (08:26)
--- NOTE | 2021-02-19 08:26 | REP ---
INDICATION: SOB. COMPARISON: Bilateral shoulder series 08/12/2018. TECHNIQUE: AP portable seated FINDINGS: The lungs are well inflated. CP angles are sharply defined with no gross effusion. There is no dense consolidation or parenchymal mass. There is a 5.6 mm nodular density overlying the left upper lung zone that is seen as a densely calcified nodule in the left upper lobe on the left shoulder series 08/12/2018. No pleural thickening or pneumothorax. No apical scarring. Heart size not enlarged for AP portable lordotic technique. There is no vascular redistribution or pulmonary edema. The aorta is normal for age and there is no widening of the mediastinum. Some mild subglottic tracheal airway narrowing. There is some degenerative changes in the spine and shoulders. IMPRESSION: 1. Calcified granuloma in the left upper lobe as seen on shoulder series 08/12/2018, stable. No further evaluation needed for this. 2. No acute cardiopulmonary disease. Heart size normal for AP lordotic portable technique and there is no vascular redistribution or edema. 3. No acute infiltrate or other significant parenchymal finding. <Electronically signed by Vish Baker > 02/19/21 [id number]
[2021-02-19 08:50] LABS: C REACTIVE PROTEIN QUANTITATIV 9.12 MG/DL (0.00-0.30)
[2021-02-19 09:00] VITALS: BP 137/65
[2021-02-19] MEDS: METOPROLOL SUCC (TopROL XL) 50MG **XL** TAB PO SCH (09:00)
[2021-02-19] MEDS ORDERED: CLIN-250 PO (09:01)
[2021-02-19] MEDS ORDERED: RISATAB3 PO (09:01)
--- NOTE | 2021-02-19 09:52 | REPVR ---
PROCEDURE INFORMATION: Exam: CT Neck Without Contrast Exam date and time: 02/19/2021 9:28 AM Age: 81 years old Clinical indication: Neck pain; Additional info: Evaluate for L ear cellulitis TECHNIQUE: Imaging protocol: Computed tomography images of the neck without contrast. Radiation optimization: All CT scans at this facility use at least one of these dose optimization techniques: automated exposure control; mA and/or kV adjustment per patient size (includes targeted exams where dose is matched to clinical indication); or iterative reconstruction. COMPARISON: CT Neck with contrast 02/17/2021 2:11 PM FINDINGS: Nasopharynx: Unremarkable. Oropharynx: Unremarkable. No significant tonsillar enlargement. Hypopharynx: Unremarkable. Larynx: Unremarkable. Normal epiglottis. Retropharyngeal space: Unremarkable. Submandibular/Parotid glands: Inflammatory changes involve the superficial aspect of the left parotid gland. Thyroid: Normal. No enlarged or calcified nodules. Lymph nodes: Unremarkable. No lymphadenopathy. Trachea: Visualized trachea is unremarkable. Lungs: There is a calcified left upper lobe granuloma. Bones/joints: Unremarkable. No acute fracture. Soft tissues: As before, there is soft tissue swelling and induration involving the left ear/auricle, compatible with cellulitis. IMPRESSION: Changes of left ear cellulitis, similar in the interval. Electronically signed by: Joanna Hale On 02/19/2021 09:52:02 AM
[2021-02-19] MEDS: predniSONE 1 MG TAB PO SCH (09:57)
--- NOTE | 2021-02-19 10:08 | REP ---
INDICATION: Evaluate for L ear cellulitis. COMPARISON: None. TECHNIQUE: CT BRAIN PERFORMED IN THE AXIAL PLANE. CORONAL RECONSTRUCTION IMAGES ARE PERFORMED. FINDINGS: Lateral ventricles are midline symmetric and mildly prominent proportionate to diffuse cerebral atrophy. Atrophy is greatest in the temporal and frontal lobes. Third and 4th ventricles also proportionate. Basal ganglia show a small whole lacunar infarct on the left but are otherwise symmetric. There are some heterogeneous low-attenuation white matter changes representing chronic small vessel ischemic disease. These are periventricular and subcortical. There is no intra or extra-axial hemorrhage, mass, mass effect nor evidence of any acute infarct. Brainstem and cerebellum show no acute finding. Basal cisterns were intact. Visualized sinuses and mastoid air grossly intact. Edema of the soft tissues of the left ear as on CT neck. Calvarium and skull base are without fracture or focal lesion. IMPRESSION: 1. Chronic age-related changes with ventricular size and mild atrophy proportionate, small-vessel ischemic disease and no evidence of acute infarct, intracranial hemorrhage, mass or mass effect. 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 2. Skull base and calvarium, visualized sinuses and mastoids intact. 3. Soft tissue swelling about the left air as seen on CT neck and consistent with cellulitis. No adjacent bony abnormality <Electronically signed by Vish Baker > 02/19/21 [id number]
--- NOTE | 2021-02-19 14:29 | DS.PDOC ---
Discharge Summary General Date of Admission Feb 17, 2021 at 08:18 Date of Discharge 02/19/2021 Discharge Summary PROCEDURES PERFORMED DURING STAY: [None]. ADMITTING DIAGNOSES / DISCHARGE DIAGNOSES: L ear cellulitis HTN PMR DVT prophylaxis COMPLICATIONS/CHIEF COMPLAINT: Cellulitis Of Left Ear Lobe. HISTORY OF PRESENT ILLNESS: Patient is an 81-year-old female with a PMHx of HTN, PMR , who pre sented to the ER with 3 history of worsening of her ear pain and redness. Patient denies any trauma to her ear. She was admitted to the hospital service for further evaluation and treatment of cellulitis. Patient was seen and examined at the bedside. Patient reported that her left ear pain has had improvement and surrounding redness has had improvement. She denies any nausea, vomiting, abdominal pain, diarrhea, or urinary discomfort. Denies chest pain, short of breath, palpitations. HOSPITAL COURSE: L ear cellulitis - Clinically patient has had improvement of her left ear redness and pain - No leukocytosis - Blood cultures 02/17: No growth at 48 hours - Imaging noted above - c/w Clindamycin; c/w Probiotics - Will have outpatient follow-up with primary care provider within the next 7 days HTN - BP well controlled - c/w Metoprolol PMR - c/w prednisone DVT prophylaxis - c/w TEDs/Sequentials DISCHARGE MEDICATIONS: Please see below. ALLERGIES: Please see below. PHYSICAL EXAMINATION ON DISCHARGE: Vitals (See below) General: Lying in bed, no acute distress, comfortable, AAOx3 HEENT: Left ear redness has had improvement, no significant erythema CVS: +S1S2 Lungs: Fair air entry b/l, no wheezing, rales or rhonchi Abdomen: Soft, ND, NT Extremities: - Edema, - Calf tenderness LABORATORY DATA: Please see below. IMAGING: CT neck 02/17: Cellulitis involving left ear and periauricular region with mild secondary inflammation lateral superficial aspect of parotid gland. No drainable abscess.. CXR 02/19: 1. Calcified granuloma in the left upper lobe as seen on shoulder series 08/12/2018, stable. No further evaluation needed for this. 2. No acute cardiopulmonary disease. Heart size normal for AP lordotic portable technique and there is no vascular redistribution or edema. 3. No acute infiltrate or other significant parenchymal finding. CT head 02/19: 1. Chronic age-related changes with ventricular size and mild atrophy proportionate, small-vessel ischemic disease and no evidence of acute infarct, intracranial hemorrhage, mass or mass effect. 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 2. Skull base and calvarium, visualized sinuses and mastoids intact. 3. Soft tissue swelling about the left air as seen on CT neck and consistent with cellulitis. No adjacent bony abnormality CT neck 02/19: Changes of left ear cellulitis, similar in the interval. ACTIVITY: [As tolerated]. DISCHARGE PLAN: Follow-up with primary care provider within the next 7 days Remain compliant with treatment plan and medications Return to the ER if you experience any problems DISPOSITION: Home Health Service. DISCHARGE CONDITION: [Stable]. TIME SPENT ON DISCHARGE: 35 minutes. Vital Signs/I&Os Vital Signs Date Time Temp Pulse Resp B/P (MAP) Pulse Ox O2 Delivery O2 Flow Rate FiO2 02/19/21 09:00 54 137/65 02/19/21 06:00 98.2 17 91 Room Air I&O- Last 24 Hours up to 6 AM 02/19/21 06:00 Intake Total 320 ml Balance 320 ml Laboratory Data Labs 24H Laboratory Tests 2 02/19/21 06:26: Nucleated Red Blood Cells % (auto) 0.0, Anion Gap 4L, Glomerular Filtration Rate > 60.0, Calcium Level 8.8, C-Reactive Protein, Quantitative 9.12H CBC/BMP Laboratory Tests 02/19/21 06:26 Microbiology Microbiology 02/17/21 Blood Culture - Preliminary, Resulted No Growth after 48 hours. All Specime... 02/17/21 Blood Culture - Preliminary, Resulted No Growth after 48 hours. All Specime... Discharge Medications Scheduled Calcium Carbonate (Calcium) 600 Mg Tablet, 600 MG PO DAILY, (Reported) Cholecalciferol (Vitamin D3) (Vitamin D3) 1,000 Unit Tablet, 1,000 UNITS PO DAILY, (Reported) Clindamycin HCl (Clindamycin HCl) 300 Mg Capsule, 300 MG PO TID L.acidoph/L.bulg/B.bif/S.therm (Priya-Bid Caplet) 1 Each Tablet, 1 EA PO WM Metoprolol Succinate (Metoprolol Succinate) 50 Mg Tab.er.24h, 50 MG PO DAILY, (Reported) Prednisone (Prednisone) 1 Mg Tablet, 1.5 MG PO DAILY, (Reported) Allergies Coded Allergies: Penicillins (Verified Allergy, Unknown, 03/20/19) hives cefadroxil (Verified Allergy, Unknown, 03/20/19) doxycycline (Verified Allergy, Unknown, 03/20/19) hives egg (Verified Allergy, Unknown, 02/17/21) ROOSEVELT WETZEL MD Feb 19, 2021 14:29
== END 2021-02-19 11:20 | disposition home health service (06) ==
LOC: M ED 08:17 → M ED INP 08:18 → ENRESERV 02-18 06:50 → M MSPAV 02-18 08:20
PROVIDERS: ADMIT Internal Medicine; ATTEND Internal Medicine
DX: H60.12 Cellulitis of left external ear (principal); I10 Essential (primary) hypertension; M35.3 Polymyalgia rheumatica; G31.1 Senile degeneration of brain, not elsewhere classified; I67.82 Cerebral ischemia; Z79.899 Other long term (current) drug therapy; Z79.2 Long term (current) use of antibiotics; Z79.52 Long term (current) use of systemic steroids; Z88.0 Allergy status to penicillin; Z88.1 Allergy status to other antibiotic agents; Z91.012 Allergy to eggs
CPT/HCPCS: 36415; 70450; 70490; 70491; 71045; 80047; 80048; 85025; 85027; 85652; 86140; 87040; 87631; 96365; 96376; 99285; G0378; J7512; Q9967

== ENCOUNTER → 2021-02-25 | Outpatient (REF) | payer MEDICARE ==
[~2021-02-25] MED LIST changes: +CALC600T60 PO; +CLIN-250 PO; +D31000TA2 PO; +RISATAB3 PO
[2021-02-25 12:38] LABS: BASO # 0.1 10^3/uL (0.0-0.2); BASO % 0.9 % (0.0-1.0); EOS # 0.2 10^3/uL (0.0-0.5); EOS % 3.6 % (0.0-3.0); HEMATOCRIT 39.1 % (36.0-47.0); HEMOGLOBIN 12.6 g/dl (12.0-15.5); LYMPH # 1.9 10^3/uL (1.5-5.0); LYMPH % 28.6 % (24.0-44.0); MEAN CORPUSCULAR HEMOGLOBIN 31.1 pg (27.0-33.0); MEAN CORPUSCULAR HGB CONC 32.2 g/dl (32.0-36.5); MEAN CORPUSCULAR VOLUME 96.5 fl (80.0-96.0); MONO # 0.9 10^3/uL (0.0-0.8); MONO % 13.9 % (2.0-8.0); NEUTROPHILS # 3.6 10^3/uL (1.5-8.5); NEUTROPHILS % 52.4 % (36.0-66.0); PLATELET COUNT, AUTOMATED 248 10^3/uL (150-450); RED BLOOD COUNT 4.05 10^6/uL (4.00-5.40); WHITE BLOOD COUNT 6.8 10^3/uL (4.0-10.0)
[2021-02-25 13:38] LABS: ERYTHROCYTE SEDIMENTATION RATE 18 mm/hr (0-30)
[2021-02-25 13:47] LABS: ALBUMIN 3.4 GM/DL (3.2-5.2); BILIRUBIN,TOTAL 0.4 MG/DL (0.2-1.0); C REACTIVE PROTEIN QUANTITATIV 1.09 MG/DL (0.00-0.30); CALCIUM LEVEL 9.1 MG/DL (8.8-10.2); CREATININE FOR GFR 0.96 MG/DL (0.55-1.30); GLOMERULAR FILTRATION RATE 59.5 (>32); POTASSIUM SERUM 4.6 MEQ/L (3.5-5.1); TOTAL PROTEIN 6.6 GM/DL (6.4-8.2)
== END ==
LOC: M SFHCADAM 09:08
PROVIDERS: ATTEND Internal Medicine Rheumatology
DX: M35.3 Polymyalgia rheumatica (principal)

== ENCOUNTER → 2021-03-25 | Outpatient (REF) | payer MEDICARE ==
[2021-03-25 13:42] LABS: BASO # 0.1 10^3/uL (0.0-0.2); BASO % 0.8 % (0.0-1.0); EOS # 0.3 10^3/uL (0.0-0.5); EOS % 4.6 % (0.0-3.0); HEMATOCRIT 40.7 % (36.0-47.0); HEMOGLOBIN 12.9 g/dl (12.0-15.5); LYMPH # 1.8 10^3/uL (1.5-5.0); LYMPH % 29.7 % (24.0-44.0); MEAN CORPUSCULAR HEMOGLOBIN 30.7 pg (27.0-33.0); MEAN CORPUSCULAR HGB CONC 31.7 g/dl (32.0-36.5); MEAN CORPUSCULAR VOLUME 96.9 fl (80.0-96.0); MONO # 0.9 10^3/uL (0.0-0.8); MONO % 14.7 % (2.0-8.0); NEUTROPHILS % 49.7 % (36.0-66.0); PLATELET COUNT, AUTOMATED 190 10^3/uL (150-450); WHITE BLOOD COUNT 6.1 10^3/uL (4.0-10.0)
[2021-03-25 14:07] LABS: ERYTHROCYTE SEDIMENTATION RATE 14 mm/hr (0-30)
[2021-03-25 14:21] LABS: ALBUMIN 3.5 GM/DL (3.2-5.2); ALT/SGPT 23 U/L (12-78); BILIRUBIN,TOTAL 0.8 MG/DL (0.2-1.0); BLOOD UREA NITROGEN 17 MG/DL (7-18); C REACTIVE PROTEIN QUANTITATIV 0.73 MG/DL (0.00-0.30); CALCIUM LEVEL 8.8 MG/DL (8.8-10.2); CARBON DIOXIDE LEVEL 28 MEQ/L (21-32); CHLORIDE LEVEL 107 MEQ/L (98-107); CREATININE FOR GFR 0.83 MG/DL (0.55-1.30); GLOMERULAR FILTRATION RATE > 60.0 (>32); GLUCOSE, FASTING 91 MG/DL (70-100); SODIUM LEVEL 141 MEQ/L (136-145); TOTAL PROTEIN 6.5 GM/DL (6.4-8.2)
== END ==
LOC: M SFHCADAM 08:57
PROVIDERS: ATTEND Internal Medicine Rheumatology
DX: M35.3 Polymyalgia rheumatica (principal)

== ENCOUNTER → 2021-05-21 | Outpatient (REF) | payer MEDICARE | LOC: M SFHCADAM 12:15 | PROVIDERS: ATTEND Internal Medicine Rheumatology | DX: M35.3 Polymyalgia rheumatica (principal) ==

== ENCOUNTER → 2021-07-16 | Outpatient (REF) | payer MEDICARE ==
[~2021-07-16] MED LIST changes: -D31000TA2 PO; +VITA100093 PO
[2021-07-16 12:49] LABS: BASO % 0.8 % (0.0-1.0); EOS # 0.2 10^3/uL (0.0-0.5); EOS % 3.1 % (0.0-3.0); HEMATOCRIT 39.6 % (36.0-47.0); HEMOGLOBIN 12.9 g/dl (12.0-15.5); LYMPH # 1.2 10^3/uL (1.5-5.0); LYMPH % 24.6 % (24.0-44.0); MEAN CORPUSCULAR HEMOGLOBIN 29.7 pg (27.0-33.0); MEAN CORPUSCULAR HGB CONC 32.6 g/dl (32.0-36.5); MEAN CORPUSCULAR VOLUME 91.2 fl (80.0-96.0); MONO # 0.9 10^3/uL (0.0-0.8); MONO % 19.5 % (2.0-8.0); NEUTROPHILS # 2.5 10^3/uL (1.5-8.5); NEUTROPHILS % 51.6 % (36.0-66.0); PLATELET COUNT, AUTOMATED 225 10^3/uL (150-450); RED BLOOD COUNT 4.34 10^6/uL (4.00-5.40); WHITE BLOOD COUNT 4.8 10^3/uL (4.0-10.0)
[2021-07-16 13:28] LABS: ALBUMIN 3.7 GM/DL (3.2-5.2); BILIRUBIN,TOTAL 0.6 MG/DL (0.2-1.0); C REACTIVE PROTEIN QUANTITATIV 0.87 MG/DL (0.00-0.30); CALCIUM LEVEL 8.9 MG/DL (8.8-10.2); CREATININE FOR GFR 1.21 MG/DL (0.55-1.30); GLOMERULAR FILTRATION RATE 45.6 (>32); POTASSIUM SERUM 4.5 MEQ/L (3.5-5.1); TOTAL PROTEIN 6.7 GM/DL (6.4-8.2)
[2021-07-16 13:36] LABS: ERYTHROCYTE SEDIMENTATION RATE 13 mm/hr (0-30)
== END ==
LOC: M LABDRWAD 12:20
PROVIDERS: ATTEND Internal Medicine Rheumatology
DX: M35.3 Polymyalgia rheumatica (principal); Z79.52 Long term (current) use of systemic steroids; M17.0 Bilateral primary osteoarthritis of knee

== ENCOUNTER → 2021-08-19 | Outpatient (CLI) | payer MEDICARE ==
[2021-08-19 13:02] LABS: BASO # 0.1 10^3/uL (0.0-0.2); BASO % 0.9 % (0.0-1.0); EOS # 0.2 10^3/uL (0.0-0.5); EOS % 4.3 % (0.0-3.0); HEMATOCRIT 39.6 % (36.0-47.0); HEMOGLOBIN 12.5 g/dl (12.0-15.5); LYMPH # 1.4 10^3/uL (1.5-5.0); LYMPH % 26.2 % (24.0-44.0); MEAN CORPUSCULAR HEMOGLOBIN 29.6 pg (27.0-33.0); MEAN CORPUSCULAR HGB CONC 31.6 g/dl (32.0-36.5); MEAN CORPUSCULAR VOLUME 93.6 fl (80.0-96.0); MONO # 0.8 10^3/uL (0.0-0.8); MONO % 14.3 % (2.0-8.0); NEUTROPHILS # 2.9 10^3/uL (1.5-8.5); NEUTROPHILS % 54.1 % (36.0-66.0); PLATELET COUNT, AUTOMATED 221 10^3/uL (150-450); RED BLOOD COUNT 4.23 10^6/uL (4.00-5.40); WHITE BLOOD COUNT 5.4 10^3/uL (4.0-10.0)
[2021-08-19 13:46] LABS: ALBUMIN 3.5 GM/DL (3.2-5.2); ALT/SGPT 20 U/L (12-78); BILIRUBIN,TOTAL 0.6 MG/DL (0.2-1.0); BLOOD UREA NITROGEN 25 MG/DL (7-18); CALCIUM LEVEL 9.2 MG/DL (8.8-10.2); CARBON DIOXIDE LEVEL 30 MEQ/L (21-32); CHLORIDE LEVEL 106 MEQ/L (98-107); CREATININE FOR GFR 0.93 MG/DL (0.55-1.30); GLOMERULAR FILTRATION RATE > 60.0 (>32); GLUCOSE, FASTING 110 MG/DL (70-100); POTASSIUM SERUM 4.3 MEQ/L (3.5-5.1); SODIUM LEVEL 142 MEQ/L (136-145); TOTAL PROTEIN 6.5 GM/DL (6.4-8.2)
[2021-08-19 13:58] LABS: ERYTHROCYTE SEDIMENTATION RATE 24 mm/hr (0-30)
== END ==
LOC: M ADAMS 08:59
PROVIDERS: ATTEND Internal Medicine Rheumatology
DX: M35.3 Polymyalgia rheumatica (principal); M17.0 Bilateral primary osteoarthritis of knee; Z79.52 Long term (current) use of systemic steroids

== ENCOUNTER → 2021-09-04 | Outpatient (REF) | payer MEDICARE | LOC: M LAB REF 16:34 | PROVIDERS: ATTEND Physician Assistant | DX: R30.0 Dysuria (principal) ==

== ENCOUNTER 2021-11-03 22:14 | Emergency (ER) | payer MEDICARE ==
[~2021-11-03] VITALS: Ht 154.9 cm; Wt 78.8 kg
[2021-11-03] MEDS ORDERED: HYDR12CA (22:32)
[2021-11-04 00:32] VITALS: BP 189/88
[2021-11-04] MEDS ORDERED: CETI-24 PO (02:55)
[2021-11-04] MEDS ORDERED: CETIRIZINE (ZyrTEC) 10 MG TAB PO ONE (02:55)
== END 2021-11-04 03:15 | disposition home or self-care (01) ==
LOC: M ED 22:14
DX: L56.2 Photocontact dermatitis [berloque dermatitis] (principal); L50.9 Urticaria, unspecified; I10 Essential (primary) hypertension; E55.9 Vitamin D deficiency, unspecified; Z88.0 Allergy status to penicillin; Z88.1 Allergy status to other antibiotic agents; Z91.012 Allergy to eggs; Z79.899 Other long term (current) drug therapy

== ENCOUNTER → 2021-11-25 | Outpatient (REF) | payer MEDICARE ==
[~2021-11-25] MED LIST changes: +CETI-24 PO; +HYDR12CA
[2021-11-25 13:31] LABS: BASO % 0.7 % (0.0-1.0); EOS # 0.2 10^3/uL (0.0-0.5); EOS % 3.9 % (0.0-3.0); HEMATOCRIT 39.4 % (36.0-47.0); HEMOGLOBIN 12.4 g/dl (12.0-15.5); LYMPH # 1.5 10^3/uL (1.5-5.0); MEAN CORPUSCULAR HEMOGLOBIN 30.1 pg (27.0-33.0); MEAN CORPUSCULAR HGB CONC 31.5 g/dl (32.0-36.5); MEAN CORPUSCULAR VOLUME 95.6 fl (80.0-96.0); MONO # 0.8 10^3/uL (0.0-0.8); MONO % 14.6 % (2.0-8.0); NEUTROPHILS % 53.6 % (36.0-66.0); PLATELET COUNT, AUTOMATED 208 10^3/uL (150-450); RED BLOOD COUNT 4.12 10^6/uL (4.00-5.40); WHITE BLOOD COUNT 5.6 10^3/uL (4.0-10.0)
[2021-11-25 14:11] LABS: ERYTHROCYTE SEDIMENTATION RATE 8 mm/hr (0-30)
[2021-11-25 15:23] LABS: ALBUMIN 3.6 GM/DL (3.2-5.2); ALT/SGPT 18 U/L (12-78); BILIRUBIN,TOTAL 0.5 MG/DL (0.2-1.0); BLOOD UREA NITROGEN 23 MG/DL (7-18); C REACTIVE PROTEIN QUANTITATIV 0.71 MG/DL (0.00-0.30); CARBON DIOXIDE LEVEL 26 MEQ/L (21-32); CHLORIDE LEVEL 107 MEQ/L (98-107); CREATININE FOR GFR 0.88 MG/DL (0.55-1.30); GLOMERULAR FILTRATION RATE > 60.0 (>32); GLUCOSE, FASTING 100 MG/DL (70-100); POTASSIUM SERUM 4.5 MEQ/L (3.5-5.1); SODIUM LEVEL 140 MEQ/L (136-145); TOTAL PROTEIN 6.6 GM/DL (6.4-8.2)
== END ==
LOC: M SFHCADAM 08:30
PROVIDERS: ATTEND Internal Medicine Rheumatology
DX: M35.3 Polymyalgia rheumatica (principal); M17.0 Bilateral primary osteoarthritis of knee; Z79.52 Long term (current) use of systemic steroids

== ENCOUNTER → 2022-03-03 | Outpatient (REF) | payer MEDICARE ==
[2022-03-03 14:51] LABS: BLOOD UREA NITROGEN 18 MG/DL (7-18); CALCIUM LEVEL 8.7 MG/DL (8.8-10.2); CARBON DIOXIDE LEVEL 26 MEQ/L (21-32); CHLORIDE LEVEL 106 MEQ/L (98-107); CREATININE FOR GFR 0.84 MG/DL (0.55-1.30); GLOMERULAR FILTRATION RATE > 60.0 (>32); GLUCOSE, FASTING 96 MG/DL (70-100); POTASSIUM SERUM 4.7 MEQ/L (3.5-5.1); SODIUM LEVEL 140 MEQ/L (136-145)
== END ==
LOC: M SFHCADAM 08:26
PROVIDERS: ATTEND Physician Assistant
DX: R31.21 Asymptomatic microscopic hematuria (principal)

== ENCOUNTER → 2022-03-04 | Outpatient (REF) | payer MEDICARE ==
[2022-03-04 16:43] LABS: APPEARANCE, URINE MANUAL CLEAR (CLEAR); COLOR, URINE MANUAL YELLOW (YELLOW)
[2022-03-04 16:44] LABS: BILIRUBIN, URINE MANUAL NEGATIVE (NEGATIVE); BLOOD URINE MANUAL TRACE (NEGATIVE); GLUCOSE, URINE (UA) MANUAL NEGATIVE (NEGATIVE); KETONE, URINE MANUAL NEGATIVE (NEGATIVE); LEUKOCYTE ESTERASE, URINE MAN TRACE (NEGATIVE); NITRITE, URINE MANUAL NEGATIVE (NEGATIVE); PROTEIN, URINE MANUAL NEGATIVE (NEGATIVE); UROBILINOGEN, URINE MANUAL NORMAL (NORMAL)
[2022-03-04 17:41] LABS: BACTERIA, URINE SMALL AMOUNT; HYALINE CAST, URINE 0-1 /lpf (0-1); MUCUS, URINE SMALL AMOUNT (NEGATIVE); RBC, URINE 0-1 /hpf (0-3); SQUAMOUS EPITHELIAL CELL URINE SMALL AMOUNT /hpf (SMALL AMT)
== END ==
LOC: M SMT 13:10
PROVIDERS: ATTEND Urology
DX: R31.29 Other microscopic hematuria (principal)
CPT/HCPCS: 52000; 81000; 81015; 88108; G0463

== ENCOUNTER → 2022-03-17 | Outpatient (CLI) | payer MEDICARE ==
[~2022-03-17] MED LIST changes: +ISOVUE-370 76% 100ML VIAL As Ordered ONE
== END ==
LOC: M RAD 14:21
PROVIDERS: ATTEND Physician Assistant
DX: R31.21 Asymptomatic microscopic hematuria (principal); N28.1 Cyst of kidney, acquired; N32.3 Diverticulum of bladder
CPT/HCPCS: 74178; Q9967

== ENCOUNTER → 2022-06-27 | Outpatient (REF) | payer MEDICARE ==
[~2022-06-27] MED LIST changes: -ISOVUE-370 76% 100ML VIAL As Ordered ONE
[2022-06-27 17:29] LABS: HEMATOCRIT 40.3 % (36.0-47.0); HEMOGLOBIN 12.8 g/dl (12.0-15.5); MEAN CORPUSCULAR HEMOGLOBIN 30.5 pg (27.0-33.0); MEAN CORPUSCULAR HGB CONC 31.8 g/dl (32.0-36.5); MEAN CORPUSCULAR VOLUME 96.2 fl (80.0-96.0); PLATELET COUNT, AUTOMATED 174 10^3/uL (150-450); RED BLOOD COUNT 4.19 10^6/uL (4.00-5.40); WHITE BLOOD COUNT 5.3 10^3/uL (4.0-10.0)
[2022-06-27 17:45] LABS: ERYTHROCYTE SEDIMENTATION RATE 9 mm/hr (0-30)
[2022-06-27 17:58] LABS: ALBUMIN 3.6 G/DL (3.2-5.2); ALKALINE PHOSPHATASE 63 U/L (46-116); ALT/SGPT 14 U/L (7.0-40); AST/SGOT 15 U/L (<34); BILIRUBIN,TOTAL 0.5 MG/DL (0.3-1.2); BLOOD UREA NITROGEN 18 MG/DL (9-23); CALCIUM LEVEL 8.6 MG/DL (8.3-10.6); CARBON DIOXIDE LEVEL 29 MMOL/L (20-31); CHLORIDE LEVEL 107 MMOL/L (98-107); CHOLESTEROL LEVEL 199 MG/DL (<200); CHOLESTEROL RISK RATIO 3.61 (<5); CREATININE FOR GFR 0.71 MG/DL (0.55-1.30); GLOMERULAR FILTRATION RATE > 60.0 (>32); GLUCOSE, FASTING 86 MG/DL (74-106); HDL CHOLESTEROL 55.1 MG/DL (>40); LDL CHOLESTEROL 107.3 MG/DL (<100); NON-HDL-C 143.9 MG/DL; POTASSIUM SERUM 4.6 MMOL/L (3.5-5.1); SODIUM LEVEL 141 MMOL/L (136-145); TOTAL PROTEIN 6.2 G/DL (5.7-8.2); TRIGLYCERIDES LEVEL 183 MG/DL (<150)
== END ==
LOC: M LABDRWAD 17:02
PROVIDERS: ATTEND Internal Medicine
DX: I10 Essential (primary) hypertension (principal)

== ENCOUNTER → 2022-09-16 | Outpatient (REF) | payer MEDICARE ==
[2022-09-16 18:18] LABS: APPEARANCE, URINE CLEAR (CLEAR); BACTERIA, URINE AUTO NEGATIVE (NEGATIVE); BILIRUBIN, URINE AUTO NEGATIVE (NEGATIVE); BLOOD, URINE BLOOD NEGATIVE (NEGATIVE); COLOR, URINE YELLOW (YELLOW); GLUCOSE, URINE (UA) AUTO NEGATIVE (NEGATIVE); KETONE, URINE AUTO NEGATIVE (NEGATIVE); LEUKOCYTE ESTERASE, URINE AUTO 1+ (NEGATIVE); MUCUS, URINE SMALL (NEGATIVE); NITRITE, URINE AUTO NEGATIVE (NEGATIVE); PROTEIN, URINE AUTO NEGATIVE (NEGATIVE); RBC, URINE AUTO 0 /HPF (0-3); SPECIFIC GRAVITY URINE AUTO 1.014 (1.002-1.035); SQUAMOUS EPITHELIAL CELL UR AU 0 /HPF (0-6); UROBILINOGEN, URINE AUTO 0.2 mg/dL (0.0-2.0); WBC, URINE AUTO 6 /HPF (0-3)
== END ==
LOC: M SMT 16:57
PROVIDERS: ATTEND Physician Assistant
DX: R31.29 Other microscopic hematuria (principal)

== ENCOUNTER → 2022-11-18 | Outpatient (CLI) | payer MEDICARE ==
[2022-11-18 10:13] LABS: HEMATOCRIT 41.2 % (36.0-47.0); HEMOGLOBIN 13.1 g/dl (12.0-15.5); MEAN CORPUSCULAR HEMOGLOBIN 30.3 pg (27.0-33.0); MEAN CORPUSCULAR HGB CONC 31.8 g/dl (32.0-36.5); MEAN CORPUSCULAR VOLUME 95.4 fl (80.0-96.0); PLATELET COUNT, AUTOMATED 181 10^3/uL (150-450); RED BLOOD COUNT 4.32 10^6/uL (4.00-5.40); WHITE BLOOD COUNT 5.8 10^3/uL (4.0-10.0)
[2022-11-18 10:26] LABS: HEMOGLOBIN A1c 5.6 % (4.0-6.0)
[2022-11-18 10:41] LABS: THYROID STIMULATING HORMONE 3.563 uIU/ML (0.55-4.78)
[2022-11-18 10:42] LABS: ALBUMIN 3.7 G/DL (3.2-5.2); ALKALINE PHOSPHATASE 66 U/L (46-116); ALT/SGPT < 9 U/L (7.0-40); AST/SGOT 10 U/L (<34); BILIRUBIN,TOTAL 0.6 MG/DL (0.3-1.2); BLOOD UREA NITROGEN 17 MG/DL (9-23); CALCIUM LEVEL 8.9 MG/DL (8.3-10.6); CARBON DIOXIDE LEVEL 29 MMOL/L (20-31); CHLORIDE LEVEL 104 MMOL/L (98-107); CHOLESTEROL LEVEL 205 MG/DL (<200); CHOLESTEROL RISK RATIO 3.73 (<5); CREATININE FOR GFR 0.76 MG/DL (0.55-1.30); GLOMERULAR FILTRATION RATE > 60.0 (>32); GLUCOSE, FASTING 107 MG/DL (74-106); HDL CHOLESTEROL 54.9 MG/DL (>40); LDL CHOLESTEROL 105.5 MG/DL (<100); NON-HDL-C 150.1 MG/DL; POTASSIUM SERUM 4.3 MMOL/L (3.5-5.1); SODIUM LEVEL 141 MMOL/L (136-145); TOTAL 25(OH) VITAMIN D 35.7 NG/ML (20.0-100.0); TOTAL PROTEIN 6.6 G/DL (5.7-8.2); TRIGLYCERIDES LEVEL 223 MG/DL (<150)
== END ==
LOC: M RAD 09:05
PROVIDERS: ATTEND Family Medicine
DX: I10 Essential (primary) hypertension (principal); R53.83 Other fatigue; E03.9 Hypothyroidism, unspecified; M47.816 Spondylosis without myelopathy or radiculopathy, lumbar region; R93.7 Abnormal findings on diagnostic imaging of other parts of musculoskeletal system; M16.0 Bilateral primary osteoarthritis of hip

== ENCOUNTER 2022-12-28 21:25 | Emergency (ER) | payer MEDICARE ==
[~2022-12-28] VITALS: Ht 152.4 cm; Wt 72.3 kg
[2022-12-28 21:26] VITALS: TEMP 99
[2022-12-28] MEDS ORDERED: MUCI1TAB18 PO (21:38)
[2022-12-28] MEDS ORDERED: CEFU1TAB22 (21:38)
[2022-12-28 22:25] LABS: BASO % 0.3 % (0.0-1.0); EOS # 0.1 10^3/uL (0.0-0.5); EOS % 0.8 % (0.0-3.0); HEMATOCRIT 41.1 % (36.0-47.0); HEMOGLOBIN 13.3 g/dl (12.0-15.5); LYMPH # 0.9 10^3/uL (1.5-5.0); LYMPH % 8.9 % (24.0-44.0); MEAN CORPUSCULAR HEMOGLOBIN 30.1 pg (27.0-33.0); MEAN CORPUSCULAR HGB CONC 32.4 g/dl (32.0-36.5); MONO # 0.9 10^3/uL (0.0-0.8); NEUTROPHILS # 8.2 10^3/uL (1.5-8.5); NEUTROPHILS % 80.6 % (36.0-66.0); PLATELET COUNT, AUTOMATED 158 10^3/uL (150-450); RED BLOOD COUNT 4.42 10^6/uL (4.00-5.40); WHITE BLOOD COUNT 10.2 10^3/uL (4.0-10.0)
[2022-12-28 22:55] LABS: ALBUMIN 3.6 G/DL (3.2-5.2); ALKALINE PHOSPHATASE 61 U/L (46-116); ALT/SGPT 15 U/L (7.0-40); AST/SGOT 14 U/L (<34); BILIRUBIN,DIRECT 0.2 MG/DL (<0.4); BILIRUBIN,TOTAL 0.6 MG/DL (0.3-1.2); BLOOD UREA NITROGEN 16 MG/DL (9-23); CALCIUM LEVEL 8.5 MG/DL (8.3-10.6); CARBON DIOXIDE LEVEL 30 MMOL/L (20-31); CHLORIDE LEVEL 102 MMOL/L (98-107); CREATININE FOR GFR 0.68 MG/DL (0.55-1.30); GLOMERULAR FILTRATION RATE > 60.0 (>32); GLUCOSE, FASTING 122 MG/DL (74-106); POTASSIUM SERUM 4.6 MMOL/L (3.5-5.1); SODIUM LEVEL 138 MMOL/L (136-145); TOTAL PROTEIN 6.6 G/DL (5.7-8.2)
[2022-12-29 01:15] VITALS: O2SAT 98
[2022-12-29 03:00] VITALS: BP 171/77
[2022-12-29] MEDS ORDERED: NIRMATRELVIR/RITONAVIR CO-PACK (EMERGENCY USE AUTH) PO SCH ×2 (03:45→09:00)
== END 2022-12-29 04:42 | disposition home or self-care (01) ==
LOC: M ED 21:25
DX: U07.1 COVID-19 (principal); I45.10 Unspecified right bundle-branch block; I10 Essential (primary) hypertension; Z88.0 Allergy status to penicillin; Z88.1 Allergy status to other antibiotic agents; Z91.012 Allergy to eggs; Z79.899 Other long term (current) drug therapy

== ENCOUNTER → 2023-09-17 | Outpatient (REF) | payer MEDICARE ==
[~2023-09-17] MED LIST changes: +CEFU1TAB22; +MUCI1TAB18 PO; +ONDA-282 PO; -ONDA4TAB6 PO
[2023-09-17 17:28] LABS: APPEARANCE, URINE HAZY (CLEAR); BACTERIA, URINE AUTO NEGATIVE (NEGATIVE); BILIRUBIN, URINE AUTO NEGATIVE (NEGATIVE); BLOOD, URINE BLOOD NEGATIVE (NEGATIVE); COLOR, URINE YELLOW (YELLOW); GLUCOSE, URINE (UA) AUTO NEGATIVE (NEGATIVE); KETONE, URINE AUTO NEGATIVE (NEGATIVE); LEUKOCYTE ESTERASE, URINE AUTO 1+ (NEGATIVE); MUCUS, URINE SMALL (NEGATIVE); NITRITE, URINE AUTO NEGATIVE (NEGATIVE); PROTEIN, URINE AUTO NEGATIVE (NEGATIVE); RBC, URINE AUTO 4 /HPF (0-3); SPECIFIC GRAVITY URINE AUTO 1.014 (1.002-1.035); SQUAMOUS EPITHELIAL CELL UR AU 1 /HPF (0-6); UROBILINOGEN, URINE AUTO 0.2 mg/dL (0.0-2.0); WBC, URINE AUTO 3 /HPF (0-3)
== END ==
LOC: M SMT 17:02
PROVIDERS: ATTEND Physician Assistant
DX: R31.21 Asymptomatic microscopic hematuria (principal)

== ENCOUNTER → 2023-09-21 | Outpatient (CLI) | payer MEDICARE ==
[~2023-09-21] MED LIST changes: -ONDA-282 PO; +ONDA4TAB6 PO
== END ==
LOC: M ADAMS 09:30
PROVIDERS: ATTEND Physician Assistant
DX: Z87.442 Personal history of urinary calculi (principal)

== ENCOUNTER 2023-12-18 15:24 | Emergency (ER) | payer MEDICAID, MEDICARE ==
[~2023-12-18] VITALS: Ht 152.4 cm; Wt 74.7 kg
[2023-12-18 15:24] VITALS: TEMP 97.5
[~2023-12-18 15:24] MED LIST changes: +ONDA-282 PO; -ONDA4TAB6 PO
[2023-12-18 16:16] LABS: VENOUS BASE EXCESS 1.2 (-2.0-2.0); VENOUS HCO3 26.6 MMOL/L (23.0-27.0); VENOUS O2 SATURATION 56.3 % (60.0-80.0); VENOUS PARTIAL PRESSURE O2 28.9 mmHg (30.0-50.0); VENOUS STANDARD HCO3 24.5 MMOL/L
[2023-12-18 16:34] LABS: BASO % 0.4 % (0.0-1.0); EOS % 0.4 % (0.0-3.0); HEMATOCRIT 42.8 % (36.0-47.0); HEMOGLOBIN 14.2 g/dl (12.0-15.5); LYMPH # 1.1 10^3/uL (1.5-5.0); LYMPH % 9.6 % (24.0-44.0); MEAN CORPUSCULAR HEMOGLOBIN 31.1 pg (27.0-33.0); MEAN CORPUSCULAR HGB CONC 33.2 g/dl (32.0-36.5); MEAN CORPUSCULAR VOLUME 93.9 fl (80.0-96.0); MONO # 0.9 10^3/uL (0.0-0.8); MONO % 8.3 % (2.0-8.0); NEUTROPHILS % 80.9 % (36.0-66.0); PLATELET COUNT, AUTOMATED 181 10^3/uL (150-450); RED BLOOD COUNT 4.56 10^6/uL (4.00-5.40); WHITE BLOOD COUNT 11.1 10^3/uL (4.0-10.0)
[2023-12-18 16:51] LABS: LIPASE 32 U/L (12-53)
[2023-12-18 16:53] LABS: ALKALINE PHOSPHATASE 66 U/L (46-116); ALT/SGPT 18 U/L (7.0-40); AST/SGOT 15 U/L (<34); BILIRUBIN,DIRECT 0.2 MG/DL (<0.4); BILIRUBIN,TOTAL 0.8 MG/DL (0.3-1.2); BLOOD UREA NITROGEN 18 MG/DL (9-23); CALCIUM LEVEL 9.1 MG/DL (8.3-10.6); CARBON DIOXIDE LEVEL 26 MMOL/L (20-31); CHLORIDE LEVEL 105 MMOL/L (98-107); CK-MB VALUE MASS < 1.0 NG/ML (<3.6); CPK CREATINE PHOSPHOKINASE 49 U/L (34-145); GLOMERULAR FILTRATION RATE > 60.0 (>32); GLUCOSE, FASTING 106 MG/DL (74-106); MB/CK RELATIVE INDEX 2.04 (< OR =4); POTASSIUM SERUM 4.2 MMOL/L (3.5-5.1); SODIUM LEVEL 137 MMOL/L (136-145); TOTAL PROTEIN 6.9 G/DL (5.7-8.2)
[2023-12-18 17:19] LABS: INR 0.99; PROTHROMBIN TIME 12.8 SECONDS (12.5-14.5)
[2023-12-18] MEDS ORDERED: ISOVUE-370 76% 100ML VIAL As Ordered ONE (19:17)
[2023-12-18] MEDS ORDERED: METR-265 PO (21:11)
[2023-12-18] MEDS ORDERED: CIPR-249 PO (21:11)
[2023-12-18] MEDS: CIPROFLOXACIN 400 MG in IV 1 EA IV ONE (21:23)
[2023-12-18] MEDS: NS 1,000 ML IV ONE (21:23)
[2023-12-18] MEDS: SIMETHICONE 80MG CHEW TAB PO STA (22:01)
[2023-12-18] MEDS: metroNIDAZOLE 500 MG in IV 1 EA IV ONE (22:32)
[2023-12-18 23:39] VITALS: BP 160/72; O2SAT 100
== END 2023-12-18 23:41 | disposition home or self-care (01) ==
LOC: M ED 15:24
DX: K52.9 Noninfective gastroenteritis and colitis, unspecified (principal); I10 Essential (primary) hypertension; E55.9 Vitamin D deficiency, unspecified; Z88.0 Allergy status to penicillin; Z88.1 Allergy status to other antibiotic agents; Z90.710 Acquired absence of both cervix and uterus
CPT/HCPCS: 74177; 80048; 80076; 82550; 82553; 82803; 83605; 83690; 84484; 85025; 85610; 85730; 86850; 86900; 86901; 87507; 96365; 96367; 96368; 99284; J0744; J1836; Q9967

== ENCOUNTER → 2024-01-01 | Outpatient (REF) | payer MEDICARE ==
[~2024-01-01] MED LIST changes: +CIPR-249 PO; +METR-265 PO
[2024-01-01 14:44] LABS: HEMATOCRIT 40.1 % (36.0-47.0); HEMOGLOBIN 12.9 g/dl (12.0-15.5); MEAN CORPUSCULAR HEMOGLOBIN 31.2 pg (27.0-33.0); MEAN CORPUSCULAR HGB CONC 32.2 g/dl (32.0-36.5); MEAN CORPUSCULAR VOLUME 96.9 fl (80.0-96.0); PLATELET COUNT, AUTOMATED 214 10^3/uL (150-450); RED BLOOD COUNT 4.14 10^6/uL (4.00-5.40); WHITE BLOOD COUNT 5.8 10^3/uL (4.0-10.0)
[2024-01-01 15:12] LABS: ALBUMIN 3.5 G/DL (3.2-5.2); ALKALINE PHOSPHATASE 51 U/L (46-116); ALT/SGPT 15 U/L (7.0-40); AST/SGOT 12 U/L (<34); BILIRUBIN,TOTAL 0.6 MG/DL (0.3-1.2); BLOOD UREA NITROGEN 18 MG/DL (9-23); CALCIUM LEVEL 8.5 MG/DL (8.3-10.6); CARBON DIOXIDE LEVEL 28 MMOL/L (20-31); CHLORIDE LEVEL 107 MMOL/L (98-107); CHOLESTEROL LEVEL 195 MG/DL (<200); CHOLESTEROL RISK RATIO 3.89 (<5); CREATININE FOR GFR 0.82 MG/DL (0.55-1.30); GLOMERULAR FILTRATION RATE > 60.0 (>32); GLUCOSE, FASTING 86 MG/DL (74-106); HDL CHOLESTEROL 50.1 MG/DL (>40); LDL CHOLESTEROL 102.3 MG/DL (<100); NON-HDL-C 144.9 MG/DL; POTASSIUM SERUM 4.5 MMOL/L (3.5-5.1); SODIUM LEVEL 139 MMOL/L (136-145); TOTAL PROTEIN 6.1 G/DL (5.7-8.2); TRIGLYCERIDES LEVEL 213 MG/DL (<150)
[2024-01-01 15:14] LABS: THYROID STIMULATING HORMONE 2.146 uIU/ML (0.55-4.78); TOTAL 25(OH) VITAMIN D 41.6 NG/ML (20.0-100.0)
[2024-01-01 15:18] LABS: HEMOGLOBIN A1c 5.5 % (4.0-6.0)
== END ==
LOC: M LABDRWAD 13:06
PROVIDERS: ATTEND Family Medicine
DX: D64.9 Anemia, unspecified (principal); R53.83 Other fatigue; E03.9 Hypothyroidism, unspecified

== ENCOUNTER → 2024-05-23 | Outpatient (REF) | payer MEDICARE ==
[2024-05-23 15:24] LABS: ALBUMIN 3.6 G/DL (3.2-5.2); ALKALINE PHOSPHATASE 60 U/L (35-104); ALT/SGPT 13 U/L (7.0-40); AST/SGOT 14 U/L (<34); BILIRUBIN,TOTAL 0.6 MG/DL (0.3-1.2); BLOOD UREA NITROGEN 23 MG/DL (9-23); CALCIUM LEVEL 8.5 MG/DL (8.3-10.6); CARBON DIOXIDE LEVEL 28 MMOL/L (20-31); CHLORIDE LEVEL 104 MMOL/L (98-107); CHOLESTEROL LEVEL 211 MG/DL (<200); CHOLESTEROL RISK RATIO 3.57 (<5); CREATININE FOR GFR 0.85 MG/DL (0.55-1.30); GLOMERULAR FILTRATION RATE > 60.0 (>32); GLUCOSE, FASTING 100 MG/DL (74-106); POTASSIUM SERUM 4.2 MMOL/L (3.5-5.1); SODIUM LEVEL 142 MMOL/L (136-145); TOTAL PROTEIN 6.5 G/DL (5.7-8.2); TRIGLYCERIDES LEVEL 165 MG/DL (<150)
[2024-05-23 15:25] LABS: THYROID STIMULATING HORMONE 3.509 uIU/ML (0.55-4.78)
[2024-05-23 15:33] LABS: HEMATOCRIT 41.3 % (36.0-47.0); HEMOGLOBIN 13.3 g/dl (12.0-15.5); MEAN CORPUSCULAR HEMOGLOBIN 31.2 pg (27.0-33.0); MEAN CORPUSCULAR HGB CONC 32.2 g/dl (32.0-36.5); MEAN CORPUSCULAR VOLUME 96.9 fl (80.0-96.0); PLATELET COUNT, AUTOMATED 163 10^3/uL (150-450); RED BLOOD COUNT 4.26 10^6/uL (4.00-5.40); WHITE BLOOD COUNT 6.5 10^3/uL (4.0-10.0)
[2024-05-23 15:45] LABS: HEMOGLOBIN A1c 5.4 % (4.0-6.0)
== END ==
LOC: M LABWUC 13:25
PROVIDERS: ATTEND Family Medicine
DX: I10 Essential (primary) hypertension (principal); R53.83 Other fatigue; E03.9 Hypothyroidism, unspecified

== ENCOUNTER → 2025-01-18 | Outpatient (CLI) | payer MEDICARE ==
[~2025-01-18] MED LIST changes: -FLOM0.4C39 PO; +HYDR12.510; -HYDR12CA; +PRED-1142 PO; -PRED1TABL PO; +TAMS-18 PO
[2025-01-18 11:01] LABS: PLATELET COUNT, AUTOMATED 155 10^3/uL (150-450)
[2025-01-18 11:12] LABS: ESTIMATED AVERAGE GLUCOSE 117.0 MG/DL (60-110)
[2025-01-18 11:22] LABS: ALT/SGPT 14.0 U/L (7.0-40); AST/SGOT 17.0 U/L (<34); CALCIUM LEVEL 9.2 MG/DL (8.3-10.6); CARBON DIOXIDE LEVEL 28.0 MMOL/L (20-31); CHLORIDE LEVEL 104.0 MMOL/L (98-107); CHOLESTEROL LEVEL 227.0 MG/DL (<200); CHOLESTEROL RISK RATIO 3.8 (<5); CREATININE FOR GFR 0.82 MG/DL (0.55-1.30); GLOMERULAR FILTRATION RATE 70.9 (>32); LDL CHOLESTEROL 119.6 MG/DL (<100); NON-HDL-C 167.4 MG/DL; POTASSIUM SERUM 4.2 MMOL/L (3.5-5.1); SODIUM LEVEL 137.0 MMOL/L (136-145); TRIGLYCERIDES LEVEL 239.0 MG/DL (<150)
== END ==
LOC: M PLALAB 08:54
PROVIDERS: ATTEND Family Medicine
DX: I10 Essential (primary) hypertension (principal); Z13.0 Encounter for screening for diseases of the blood and blood-forming organs and certain disorders involving the immune mechanism; Z13.220 Encounter for screening for lipoid disorders; Z13.29 Encounter for screening for other suspected endocrine disorder; Z13.1 Encounter for screening for diabetes mellitus

== ENCOUNTER → 2025-02-16 | Outpatient (CLI) | payer MEDICARE | LOC: M PLALAB 10:11 | DX: R79.89 Other specified abnormal findings of blood chemistry (principal); I10 Essential (primary) hypertension ==